=== PATIENT | male | born 1965 | race Caucasian/White ===

== ENCOUNTER 2021-08-18 18:31 | Inpatient (IN) ==
--- OUTSIDE RECORDS SUMMARY | 2021-08-18 20:42 | External Medical Summary | Continuity of Care Document ---
:1965 Author Organization [facility] Care Team Providers Name Role Phone [facility] Unavailable Unavailable Problems Combined list of problems from Department of Defense and Veterans Affairs facilities. It does not include entries that were removed or entered in error. Problem Status Onset Problem Date of Comments Source Date Type Resolution Chronic back pain Active Condition [facility] Depressive disorder Active Condition [facility] Diabetes Mellitus Active Condition MARGUERITE Rivera Type 2 ([facility] [id number]) [facility] Diabetic neuropathy [facility] Headache ([facility] [place] [id number] CLINIC History of Active Condition Jan 20, 2018 [facility] colonoscopy Entered By: NEFTALI CERVANTES Comment: 01/2018 -- Due at this time, going to do FIT testing. Aug 27, 2020 Entered By: NEFTALI PASTOR Comment: 2020 -- Crcs declined. Stone-Stahli line Active Condition [facility]git [facility] Multiple joint pain Active Condition Apr 28, 2021 LUKE Rivera Entered By: AVTAR SANDRA GASCA [facility] CARI Comment: 2020 neg rheumatologic labs Neck pain Active Condition Jan 20, 2018 [facility] Entered By: NEFTALI CERVANTES Comment: 01/2018 -- Getting MICHELLE's thru the Pain Clinic @ [facility] Obesity Active Condition [facility] Open wound of foot Active Condition Birgit Rivera [facility] Tobacco use Active Condition LUKE Rivera [facility] Well adult Active Condition Aug 25, 2020 [facility] Entered By: NEFTALI CERVANTES Comment: Hx: [place] x 16 yrs. Mos: [employer]. Aug 25, 2020 Entered By: NEFTALI PASTOR Comment: Marital Status: . Aug 25, 2020 Entered By: NEFTALI PASTOR Comment: Alcohol Use: Yes, rarely. Aug 25, 2020 Entered By: NEFTALI PASTOR Comment: Tobacco Use: Yes, smoker (1/2 ppd). Aug 25, 2020 Entered By: NEFTALI PASTOR Comment: Primary healthcare provider is YASEMIN Pastor @ the [facility]. Chronic pain Inactive Condition 04/28/2021 NISHANT Rivera [facility] Combined form of Inactive Condition 04/28/2021 MARGUERITE Rivera senile cataract [facility] Contusion of sacral Inactive Condition 10/11/2016 LUKE Rivera region [facility] Dental caries Inactive Condition 04/28/2021 [facility] External Inactive Condition 10/11/2016 LUKE Rivera hemorrhoids without [place] complication [facility] Hand pain Inactive Condition 04/28/2021 [facility] History of surgery Inactive Condition 04/28/2021 [facility] Spasmodic Inactive Condition 10/11/2016 LUKE Rivera torticollis [facility] Strain of trapezius Inactive Condition 10/11/2016 LUKE Rivera muscle [facility] Tendinitis Inactive Condition 09/08/2018 Aug 02, 2013 MARGUERITE Rivera Entered By: AVTAR MICHELLE LAURA [facility] E Comment: calcific right shoulder Diagnosis: active Diagnosis [facility] ICD-10-CM I10 MEDICA L Essential (primary) CENTER hypertensionwith Provider Comments: Essential (Primary) Hypertension Diagnosis: active Diagnosis [facility] ICD-10-CM Z04.9 CLIN IC Encounter for examination and observation for unsp reasonwith Provider Comments: Exam/Observation for Unspec Reason Diagnosis: active Diagnosis [facility] ICD-10-CM E11.9 CLIN IC Type 2 diabetes mellitus without complicationswith Provider Comments: Diabetes mellitus ([facility] [id number]) Diagnosis: active Diagnosis [facility] ICD-10-CM R68.89 CLI ROSEANN Other general symptoms and signswith Provider Comments: General Symptoms & Signs Diagnosis: active Diagnosis LUKE Rivera ICD-10-CM E11.9 [facility] Type 2 diabetes [facility] mellitus without complicationswith Provider Comments: Type 2 Diabetes Mellitus without Complications Diagnosis: active Diagnosis [facility] ICD-10-CM M79.643 CL INIC Pain in unspecified handwith Provider Comments: Hand pain ([facility] [id number]) Diagnosis: active Diagnosis [facility] ICD-10-CM Z71.2 CLIN IC Person consulting for explanation of exam or test findingswith Provider Comments: Explanation of Exam or Test Finding Diagnosis: active Diagnosis [facility] ICD-10-CM Z00.00 CLI ROSEANN Encntr for general adult medical exam w/o abnormal findingswith Provider Comments: Well adult ([facility] [id number]) Medications Combined list of outpatient medications from Department of Defense and Veterans Affairs facilities. Medications provided include 1) outpatient medications [facility], and 2) patient-reported medications. Medication Details Route Status Patient Prescription Prescription Last Ordering Order Source Instructions Expires Number Dispense Provider Date Date ACCU-CHEK USE THE MISCEL 11/25/2020 [id number] Ailyn WHEELER 08/28/ [place] GUIDE METER LANEOU 1 ARK L 2020 N [place] (GLUCOSE) DIRECTED S CLINIC METER NEEDED FOR BLOOD GLUCOSE TESTING ACETAMINOPH TAKE ONE ORAL ACTIVE Ailyn PASTOR 10/20/ [facility] EN 500MG TABLET ARK L 2017 N [facility] TAB BY MOUTH CLINIC PRN ALOGLIPTIN TAKE ONE ORAL ACTIVE 07/07/2022 [id number] ZIEGL ER,M 07/07/ [place] 12.5MG TAB TABLET 1 ARK L 2020 N [facility] BY MOUTH CLINIC EVERY DAY FOR DIABETES ALOGLIPTIN TAKE ONE ORAL DISCONT 12/18/2021 [id number] Z IEDALLAS,M 12/17/ [place] 12.5MG TAB TABLET INUE 1 ARK L 2020 N [facility] BY MOUTH CLINIC EVERY DAY FOR DIABETES ALOGLIPTIN TAKE ONE ORAL DISCONT 07/03/2021 [id number] Z IEGLER,M 07/03/ [place] 12.5MG TAB TABLET INUE 1 ARK L 2019 N [facility] BY MOUTH CLINIC EVERY DAY FOR DIABETES ASCORBIC TAKE TWO ORAL ACTIVE 04/17/2022 [id number] APOLINAR,S A 04/16/ JONATHA ACID 500MG TABLETS 1 MANT2020 N M. TAB BY MOUTH SENIOR RISK MANAGER-C WAIN[place] EVERY T DAY FOR [facility] VITAMIN C SUPPLEME NT NOTE DOSE AND STRENGTH CARBOXYMETH INSTILL AFFECT ACTIVE 02/24/2022 [id number] ADRIANA N,VINC 02/24/ JONATHA YLCELLULOSE 1 DROP ED EYE 1 ENT W 2020 N M. NA 0.5% IN [place] SOLN,OPH AFFECTED GHT EYE FOUR [facility] TIMES A DAY CHOLECALCIF TAKE ONE ORAL ACTIVE 12/18/2021 [id number] Ailyn ESCALONA 12/17/ [place] YANI 125MCG CAPSULE 1 ARK L 2020 N [facility] (5,000UNIT) BY MOUTH CLINI C CAP,ORAL DAILY CHOLECALCIF TAKE ONE ORAL DISCONT 11/09/2020 [id number] Ailyn LARA 11/08/ [place] YANI 125MCG CAPSULE INUE 1 ARK L 2020 N [facility] (5,000UNIT) BY MOUTH CLINI C CAP,ORAL DAILY DICLOFENAC APPLY TOPICA ACTIVE 08/28/2021 [id number] Ailyn PASTOR 08/28/ [place] NA 1% 2-4 L 1 ARK L 2020 N [facility] GEL,TOP GRAMS CLINIC DIRECTED TO AFFECTED AREA TWICE A DAY NEEDED FOR PAIN * LIMIT DAILY DOSE TO 8 GRAMS TO UPPER BODY AND 16 GRAMS TO LOWER BODY FISH OIL TAKE TWO ORAL ACTIVE 12/18/2021 [id number] Ailyn PASTOR 12/17/ [place] 1000MG CAPSULES 1 ARK L 2020 N [facility] (500MG BY MOUTH CLINIC DHA/EPA) EVERY CAP,ORAL DAY FOR HYPERLIP IDEMIA. FISH OIL TAKE TWO ORAL DISCONT 11/09/2020 [id number] Ailyn PASTOR 11/08/ [place] 1000MG CAPSULES INUE 1 ARK L 2019 N [facility] (500MG BY MOUTH CLINIC DHA/EPA) EVERY CAP,ORAL DAY FOR HYPERLIP IDEMIA. GENTAMICIN APPLY A TOPICA ACTIVE 04/17/2022 [id number] SA APOLINAR 04/16/ JONATHA SO4 0.1% SMALL L 1 [facility] 2020 N M. CREAM,TOP AMOUNT SENIOR RISK MANAGER-C WAINWRI TO GHT AFFECTED [facility] AREA ORDERED BY WOUND CARE TO TREAT OR PREVENT AN INFECTIO N DRESSI NG CHANGE EVERY OTHER DAY INSULIN,GLA INJECT SUBCUT ACTIVE 06/01/2022 [id number] Ailyn GONZALEZ 06/01/ [place] RGINE,HUMAN 23 UNITS ANEOUS 1 ARK L 2020 N [facility] 100 UNIT/ML UNDER CLINIC INJ,SOLOSTA SKIN AT R,3ML BEDTIME INSULIN,GLA INJECT SUBCUT DISCONT 04/17/2021 [id number] SAMIRA VELASQUEZM 04/17/ [place] RGINE,HUMAN 23 UNITS ANEOUS INUE 1 ARK L 2019 N [facility] 100 UNIT/ML UNDER CLINIC INJ,SOLOSTA SKIN AT R,3ML BEDTIME LISINOPRIL TAKE ONE ORAL ACTIVE 12/18/2021 [id number] ZIEGL ER,M 12/17/ [place] 10MG TAB TABLET 1 ARK L 2020 N [facility] BY MOUTH CLINIC DAILY TO LOWER BLOOD PRESSURE LISINOPRIL TAKE ONE ORAL DISCONT 11/23/2020 [id number] ZIEGL ER,M 12/02/ [place] 10MG TAB TABLET INUE 1 ARK L 2020 N [facility] BY MOUTH CLINIC DAILY TO LOWER BLOOD PRESSURE METFORMIN TAKE ONE ORAL 11/09/2020 [id number] NEMESIO R,M 11/08/ [place] HCL 1000MG TABLET 1 ARK L 2020 N [facility] TAB BY MOUTH CLINIC TWICE A DAY FOR DIABETES NAPROXEN TAKE ONE ORAL 07/03/2021 [id number] ZIEGLE R,M 07/03/ [place] 500MG TAB TABLET 1 ARK L 2020 N [facility] BY MOUTH CLINIC TWICE A DAY FOR PAIN OFLOXACIN INSTILL LEFT 07/30/2021 [id number] SCHREMP P, 06/30/ JONATHA 0.3% 1 DROP EYE 1 RIO D 2020 N M. SOLN,OPH IN LEFT [place] EYE FOUR GHT TIMES A [facility] DAY FOR 7 DAYS, TO PREVENT INFECTIO N. BEGIN USING DROPS INSTRUCT ED (2ND EYE). OFLOXACIN INSTILL RIGHT 07/30/2021 [id number] SCHREMP P, 06/30/ JONATHA 0.3% 1 DROP EYE 1 RIO D 2020 N M. SOLN,OPH IN RIGHT WAIN[place] EYE FOUR GHT TIMES A [facility] DAY FOR 7 DAYS TO PREVENT INFECTIO N. BEGIN USING DROPS INSTRUCT ED (1ST EYE). PREDNISOLON INSTILL RIGHT 07/30/2021 [id number] SC HREMPP, 06/30/ JONATHA E ACETATE 1 DROP EYE 1 RIO D 2020 N M. 1% SUSP,OPH IN RIGHT W[place] RI EYE FOUR GHT TIMES A [facility] DAY UNTIL GONE, TO REDUCE INFLAMMA TION. BEGIN DROPS INSTRUCT ED (1ST EYE). PREDNISOLON INSTILL LEFT 06/29/2021 [id number] SCHRE MPP, 06/26/ JONATHA E ACETATE 1 DROP EYE 1 RIO D 2020 N M. 1% SUSP,OPH IN LEFT WAINWR I EYE FOUR GHT TIMES A [facility] DAY UNTIL GONE, TO REDUCE INFLAMMA TION. BEGIN USING DROPS INSTRUCT ED (2ND EYE). PREGABALIN TAKE ONE ORAL DISCONT 04/10/2021 [id number] GERARDO SOURAV 03/11/ JONATHA 150MG CAPSULE INUE 1 ,2020 N M. CAP,ORAL BY MOUTH NEINWRI TWICE A T DAY [facility] PREGABALIN TAKE ONE ORAL DISCONT 06/11/2020 [id number] ZIEGL ER,M TO 150MG CAPSULE INUE 0 ARK L 2019 N AL CAP,ORAL (150MG) CLINIC BY MOUTH TWICE A DAY FOR DIABETIC NERVE PAIN PREGABALIN TAKE ONE ORAL 05/24/2021 [id number] A NDREADIS 04/24/ JONATHA 150MG CAPSULE 1 ,2020 N M. CAP,ORAL BY MOUTH WAINWRI TWICE A T DAY [facility] PREGABALIN TAKE ONE ORAL 01/05/2021 [id number] Becka IEDALLASM 07/06/ JONATHA 150MG CAPSULE 1 ARK L 2019 N M. CAP,ORAL (150MG) WAINWRI BY MOUTH GHT TWICE A [facility] DAY FOR DIABETIC NERVE PAIN SODIUM IRRIGATI TOPICA ACTIVE 04/17/2022 [id number] SA APOLINAR 04/16/ JONATHA HYPOCHLORIT ON USE 5 L 1 MANTHA 2020 N M. E 0.25% MLS TO SENIOR RISK MANAGER-C WAIN[place]RI SOLN,TOP AFFECTED GHT AREA [facility] DIRECTED FOR WOUND CARE VENLAFAXINE TAKE ONE ORAL ACTIVE 12/18/2021 [id number] Z Ailyn LARA 12/17/ [place] HCL 75MG CAPSULE 1 ARK L 2020 N [facility] 24HR CAP,SA BY MOUTH CLINI C TWICE A DAY FOR PAIN MANAGEME NT / DEPRESSI ON VENLAFAXINE TAKE ONE ORAL DISCONT 11/09/2020 [id number] Z JERZYTOÑOLUIS ENRIQUEM 11/08/ [place] HCL 75MG CAPSULE INUE 1 ARK L 2019 N [facility] 24HR CAP,SA BY MOUTH CLINI C TWICE A DAY FOR PAIN MANAGEME NT / DEPRESSI ON Immunizations Combined list of available immunizations from the Department of Defense and Veterans Affairs facilities. Immunization Series Date Administered Site Reaction Lot CVX Drug St atus Comments Source Given By Number Code Senior Planner [id number] Not [place] IMM REFUSAL - 2020 Given N AL UNS CVX 213 CL INIC [id number] Not [place] VACCINE 2020 Given N AL REFUSAL CLINIC PNEUMOCOCCAL complet [place] CONJUGATE PCV 2017 ed N [facility] 13 CLINIC Results Combined list of recent chemistry, hematology and other laboratory results from Department of Defense and Veterans Affairs, ranging from 15 months to all on record, depending upon the facility. Order Results Value Reference Date Interpretation Specimen Commen ts Source Name Range TESTOSTE TESTOSTERO 2.6 2.8 - 8 09/12 L Specimen [place] GRANT JUANITA WAYNE ng/ml /2020 Type: [facility] TOTAL [MASS/VOLU SERUM
ME] IN Comment: SERUM OR TESTOSTERON PLASMA E TOTAL INTERPRETAT ION: Testosteron e peaks at approximate ly 7am and is at its minimum at approximate ly 8pm. Reference ranges as of 01/10/02: Male 2.8-8.0 ng/mL Female 0.1-0.8 ng/mL
Ordering Provider: JANE PASTOR
Report Released Date/Time: Aug 27, 2020 01:58 PM
Reporting Lab: LU[facility] CASTELLANOS [facility] [phone]< br/> Performing Lab: LUKE Rivera [facility]<br/ > [address] [phone]< br/> ANTI-NUC NUCLEAR AB <1:80 - 180 09/12 Specimen ROO[place]ELT MONACO AB [TITER] IN Type: [facility] CL INIC (BILL) SERUM SERUM
< div>No comment entered.
</div> Ordering Provider: JANE PASTOR
Report Released Date/Time: Aug 27, 2020 01:58 PM
Reporting Lab: LUKE Rivera [facility]
[address] [facility] [phone]< br/> Performing Lab: LUKE Rivera [facility]
; [place] [id number]
IRON IRON 316 112 - 346 09/12 Specimen SANDRA TON PANEL BINDING ug/dL Type: [facility] CL[facility] CAPACITY.U BLOOD
< NSATURATED div>No [MASS/VOLU comment ME] IN entered.<br SERUM OR /></div> PLASMA Ordering Provider: JANE PASTOR
Report Released Date/Time: Aug 27, 2020 01:58 PM
Reporting Lab: LUKE Rivera [facility]
[address] [place] [phone]< br/> Performing Lab: LUKE Rivera [facility]
[address] [place] [phone]& lt;br/> IRON IRON 67 ug/dL 38 - 153 09/12 Specimen SANDRA TON PANEL [MASS/VOLU /2020 Type: [facility] CL INIC ME] IN BLOOD
< SERUM OR div>No PLASMA comment entered.
</div> Ordering Provider: JANE PASTOR
Report Released Date/Time: Aug 27, 2020 01:58 PM
Reporting Lab: LUKE Rivera [facility]
[address] [facility] [phone]< br/> Performing Lab: LUKE AilynDaily [facility]
[address] [facility] [phone]& lt;br/> IRON IRON 383 250 - 450 09/12 Specimen SANDRA TON PANEL BINDING ug/dL /2020 Type: [facility] CLIN[facility] CAPACITY BLOOD
< [MASS/VOLU div>No ME] IN comment SERUM OR entered.<br PLASMA /></div> Ordering Provider: JANE PASTOR
Report Released Date/Time: Aug 27, 2020 01:58 PM
Reporting Lab: [facility] AilynDaily [facility]
[address] [place] [phone]< br/> Performing Lab: LUKE Rivera [facility]
[address] [place] [phone]& lt;br/> IRON IRON 17.5 % 20 - 55 09/12 L Specimen [place] N PANEL SATURATION /2020 Type: [facility]IC [MASS BLOOD
< FRACTION] div>No IN SERUM comment OR PLASMA entered.
</div> Ordering Provider: JANE PASTOR
Report Released Date/Time: Aug 27, 2020 01:58 PM
Reporting Lab: [facility]
[address] [place] [phone]< br/> Performing Lab: [facility] AilynDaily [facility]
[address] [place] [phone]& lt;br/> PSA WITH PROSTATE 2.43 0 - 4.00 09/12 Specimen RENA YIP FREE PSA SPECIFIC ng/ml /2020 Type: [facility] CLI ROSEANN REFLEX AG SERUM
[MASS/VOLU Comment: ME] IN High doses SERUM OR of Biotin PLASMA supplements (>5 mg/day) may falsely increase Vitamin B-12, Vitamin D (25OH), Free T4, and Folate results. Test specimens should be collected at least 8 hrs after last ingestion of high dose biotin. High doses of Biotin supplements (>5 mg/day) may falsely decrease Total PSA, Free PSA, Pro-BNP, AFP, C-Peptide and Ferritin results. Test specimens should be collected at least 8 hours after the last ingestion of high dose biotin. Significant ly decreased CRP values may be obtained from samples taken from patients who have been treated with carboxypeni cillines. LDL Direct Adult Reference Range: Optimal <100 mg/dL Near optimal/abo ve optimal 100-129 mg/dL Borderline high 130-159 mg/dL High 160-189 mg/dL Very High 190 mg/dL Note that non-fasting results may be slightly lower than fasting results.
Ordering Provider: JANE PASTOR
Report Released Date/Time: Aug 27, 2020 01:58 PM
Reporting Lab: LUKE Rivera [facility]
[address] [place] [phone]< br/> Performing Lab: LUKE Rivera [facility]
[address] [place] [phone]< br/> RHEUMATO RHEUMATOID <14IU/mL 0 - 13 09/12 Specimen ED WILLIAMSON ID FACTOR Type: [facility] CLIN[facility] FACTOR [UNITS/VOL SERUM
< UME] IN div>No SERUM OR comment PLASMA entered.
</div> Ordering Provider: JANE PASTOR
Report Released Date/Time: Aug 27, 2020 01:58 PM
Reporting Lab: LUKE Rivera [facility]
[address] [place] [phone]< br/> Performing Lab: LUKE Rivera [facility]
[address] [place] [phone]& lt;br/> THYROID THYROTROPI 2.19 0.300 - 09/12 Specimen ROOSEVELTI STON STIMULAT N IU/mL 4.25 Type: [facility] CLIN IC ING [UNITS/VOL SERUM
HORMONE UME] IN Comment: SERUM OR High doses PLASMA of Biotin supplements (>5 mg/day) may falsely increase Vitamin B-12, Vitamin D (25OH), Free T4, and Folate results. Test specimens should be collected at least 8 hrs after last ingestion of high dose biotin. High doses of Biotin supplements (>5 mg/day) may falsely decrease Total PSA, Free PSA, Pro-BNP, AFP, C-Peptide and Ferritin results. Test specimens should be collected at least 8 hours after the last ingestion of high dose biotin. Significant ly decreased CRP values may be obtained from samples taken from patients who have been treated with carboxypeni cillines. LDL Direct Adult Reference Range: Optimal <100 mg/dL Near optimal/abo ve optimal 100-129 mg/dL Borderline high 130-159 mg/dL High 160-189 mg/dL Very High 190 mg/dL Note that non-fasting results may be slightly lower than fasting results.
Ordering Provider: JANE PASTOR
Report Released Date/Time: Aug 27, 2020 01:58 PM
Reporting Lab: LUKE Rivera [facility]
[address] [place] [phone]< br/> Performing Lab: LUKE Rivera [facility]
[address] [place] [phone]< br/> URINALYS COLOR OF Yellow 09/12 Specimen SANDRA TON IS URINE /2020 Type: [facility] CLIN[facility] (IRIS) URINE
< div>No comment entered.
</div> Ordering Provider: JANE PASTOR
Report Released Date/Time: Aug 27, 2020 01:58 PM
Reporting Lab: LUKE Rivera [facility]
[address] [place] [phone]< br/> Performing Lab: LUKE Rivera [facility]
[address] [place] [phone]& lt;br/> URINALYS SPECIFIC 1.022 1.003 - 09/12 Specimen SANDRA TON IS GRAVITY OF 1.030 /2020 Type: [facility] (IRIS) URINE BY URINE
< TEST STRIP div>No comment entered.
</div> Ordering Provider: JANE PASTOR
Report Released Date/Time: Aug 27, 2020 01:58 PM
Reporting Lab: [facility] AilynDaily [facility]
[address] [facility] [phone]< br/> Performing Lab: [facility] AilynDaily [facility]
[address] [place] [phone]& lt;br/> URINALYS BILIRUBIN. NEGATIVE 09/12 Specimen [place] IS TOTAL /2020 Type: [facility] (IRIS) [PRESENCE] URINE
< IN URINE div>No comment entered.
</div> Ordering Provider: JANE PASTOR
Report Released Date/Time: Aug 27, 2020 01:58 PM
Reporting Lab: [facility] AilynDaily [facility]
[address] [place] [phone]< br/> Performing Lab: [facility] AilynDaily [facility]
[address] [place] [phone]& lt;br/> URINALYS KETONES NEGATIVE 09/12 Specimen SANDRA TON IS [MASS/VOLU mg/dL /2020 Type: [facility] (IRIS) ME] IN URINE
< URINE BY div>No TEST STRIP comment entered.
</div> Ordering Provider: JANE PASTOR
Report Released Date/Time: Aug 27, 2020 01:58 PM
Reporting Lab: [facility] AilynDaily [facility]
[address] [facility] [phone]< br/> Performing Lab: [facility] AilynDaily [facility]
[address] [facility] [phone]& lt;br/> URINALYS GLUCOSE NEGATIVE 09/12 Specimen SANDRA TON IS [MASS/VOLU mg/dL /2020 Type: [facility] (IRIS) ME] IN URINE
< URINE div>No comment entered.
</div> Ordering Provider: JANE PASTOR
Report Released Date/Time: Aug 27, 2020 01:58 PM
Reporting Lab: LUKE Rivera [facility]
[address] [place] [phone]< br/> Performing Lab: LUKE Rivera [facility]
[address] [place] [phone]& lt;br/> URINALYS PROTEIN 10 mg/dL 09/12 Specimen SANDRA BROOKE IS [MASS/VOLU /2020 Type: [facility] (IRIS) ME] IN URINE
< URINE BY div>No TEST STRIP comment entered.
</div> Ordering Provider: JANE PASTOR
Report Released Date/Time: Aug 27, 2020 01:58 PM
Reporting Lab: [facility] Rivera [facility]
[address] [place] [phone]< br/> Performing Lab: LUKE Rivera [facility]
[address] [place] [phone]& lt;br/> URINALYS PH OF 5.5 5.0 - 8.0 09/12 Specimen RENA YIP IS URINE BY /2020 Type: [facility] CL[facility] (IRIS) TEST STRIP URINE
< div>No comment entered.
</div> Ordering Provider: JANE PASTOR
Report Released Date/Time: Aug 27, 2020 01:58 PM
Reporting Lab: [facility] Rivera [facility]
[address] [place] [phone]< br/> Performing Lab: LUKE Rivera [facility]
[address] [place] [phone]& lt;br/> URINALYS LEUKOCYTES 1 /HPF 0 - 5 09/12 Specimen ROOSEVELT BURNS IS [#/AREA] /2020 Type: [facility] CL[facility] (IRIS) IN URINE URINE
< SEDIMENT div>No BY comment MICROSCOPY entered.<br HIGH POWER /></div> FIELD Ordering Provider: JANE PASTOR
Report Released Date/Time: Aug 27, 2020 01:58 PM
Reporting Lab: LU[facility] Rivera [facility]
[address] [facility] [phone]< br/> Performing Lab: LU[facility] Rivera [facility]
[address] [place] [phone]& lt;br/> URINALYS MUCUS RARE 09/12 Specimen [place] IS [PRESENCE] /2020 Type: [facility] (IRIS) IN URINE URINE
< SEDIMENT div>No BY LIGHT comment MICROSCOPY entered.
</div> Ordering Provider: JANE PASTOR
Report Released Date/Time: Aug 27, 2020 01:58 PM
Reporting Lab: [facility] Rivera [facility]
[address] [place] [phone]< br/> Performing Lab: LU[facility] Rivera [facility]
[address] [place] [phone]& lt;br/> URINALYS ERYTHROCYT 1 /HPF 0 - 3 09/12 Specimen ROOSEVELT BURNS IS ES /2020 Type: [facility] (IRIS) [#/AREA] URINE
< IN URINE div>No SEDIMENT comment BY entered.<br MICROSCOPY /></div> HIGH POWER Ordering FIELD Provider: JANE PASTOR
Report Released Date/Time: Aug 27, 2020 01:58 PM
Reporting Lab: [facility] Rivera [facility]
[address] [place] [phone]< br/> Performing Lab: [facility] Rivera [facility]
[address] [place] [phone]& lt;br/> URINALYS APPEARANCE CLEAR 09/12 Specimen ROOSEVELT BURNS IS OF URINE /2020 Type: [facility] CL[facility] (IRIS) URINE
< div>No comment entered.
</div> Ordering Provider: JANE PASTOR
Report Released Date/Time: Aug 27, 2020 01:58 PM
Reporting Lab: [facility] Rivera [facility]
[address] [facility] [phone]< br/> Performing Lab: [facility] Rivera [facility]
[address] [facility] [phone]& lt;br/> URINALYS HEMOGLOBIN NEGATIVE 09/12 Specimen ED WILLIAMSON IS [PRESENCE] Type: [facility]INE URINE
< BY TEST div>No STRIP comment entered.
</div> Ordering Provider: JANE PASTOR
Report Released Date/Time: Aug 27, 2020 01:58 PM
Reporting Lab: [facility]
[address] [place] [phone]< br/> Performing Lab: [facility]
[address] [place] [phone]& lt;br/> URINALYS NITRITE NEGATIVE 09/12 Specimen SANDRA BROOKE IS [PRESENCE] Type: [facility] URINE
< BY TEST div>No STRIP comment entered.
</div> Ordering Provider: JANE PASTOR
Report Released Date/Time: Aug 27, 2020 01:58 PM
Reporting Lab: [facility]
[address] [facility] [id number]< br/> Performing Lab: [facility]
[address] [facility] [address]& lt;br/> URINALYS LEUKOCYTE NEGATIVE 09/12 Specimen ROOSEVELT BURNS IS ESTERASE /2021 Type: [facility] (IRIS) [PRESENCE] URINE
< IN URINE div>No BY TEST comment STRIP entered.
</div> Ordering Provider: JANE PASTOR
Report Released Date/Time: Aug 27, 2020 01:58 PM
Reporting Lab: [facility]
[address] [place] [phone]< br/> Performing Lab: [facility]
[address] [place] [phone]& lt;br/> URINALYS UROBILINOG NORMALmg <2 - 2 09/12 Specimen LE [place] IS EN /dL /2020 Type: [facility] (IRIS) [MASS/VOLU URINE
< ME] IN div>No URINE BY comment TEST STRIP entered.
</div> Ordering Provider: JANE PASTOR
Report Released Date/Time: Aug 27, 2020 01:58 PM
Reporting Lab: [facility]
[address] [place] [phone]< br/> Performing Lab: [facility]
[address] [place] [phone]& lt;br/> URIC URATE 5.2 3.5 - 8.5 09/12 Specimen SANDRA TON ACID [MASS/VOLU mg/dL /2020 Type: [facility] INIC ME] IN SERUM
SERUM OR Comment: PLASMA High doses of Biotin supplements (>5 mg/day) may falsely increase Vitamin B-12, Vitamin D (25OH), Free T4, and Folate results. Test specimens should be collected at least 8 hrs after last ingestion of high dose biotin. High doses of Biotin supplements (>5 mg/day) may falsely decrease Total PSA, Free PSA, Pro-BNP, AFP, C-Peptide and Ferritin results. Test specimens should be collected at least 8 hours after the last ingestion of high dose biotin. Significant ly decreased CRP values may be obtained from samples taken from patients who have been treated with carboxypeni cillines. LDL Direct Adult Reference Range: Optimal <100 mg/dL Near optimal/abo ve optimal 100-129 mg/dL Borderline high 130-159 mg/dL High 160-189 mg/dL Very High 190 mg/dL Note that non-fasting results may be slightly lower than fasting results.
Ordering Provider: JANE PASTOR
Report Released Date/Time: Aug 27, 2020 01:58 PM
Reporting Lab: [facility]
[address] [facility] [phone]< br/> Performing Lab: [facility]
[address] [place] [phone]< br/> VITAMIN 25-HYDROXY 65.8 30.0 - 100 09/12 Specimen L EWISTON D VITAMIN D3 ng/mL /2020 Type: [facility] (25-HYDR [MASS/VOLU SERUM
OXY) ME] IN Comment: SERUM OR High doses PLASMA of Biotin supplements (>5 mg/day) may falsely increase Vitamin B-12, Vitamin D (25OH), Free T4, and Folate results. Test specimens should be collected at least 8 hrs after last ingestion of high dose biotin. High doses of Biotin supplements (>5 mg/day) may falsely decrease Total PSA, Free PSA, Pro-BNP, AFP, C-Peptide and Ferritin results. Test specimens should be collected at least 8 hours after the last ingestion of high dose biotin. Significant ly decreased CRP values may be obtained from samples taken from patients who have been treated with carboxypeni cillines. LDL Direct Adult Reference Range: Optimal <100 mg/dL Near optimal/abo ve optimal 100-129 mg/dL Borderline high 130-159 mg/dL High 160-189 mg/dL Very High 190 mg/dL Note that non-fasting results may be slightly lower than fasting results.
Ordering Provider: JANE PASTOR
Report Released Date/Time: Aug 27, 2020 01:58 PM
Reporting Lab: [facility]
[address] [facility] [phone]< br/> Performing Lab: [facility]
[address] [facility] [phone]< br/> C-REACTI C REACTIVE 1.6 mg/L 0 - 4.99 09/12 Specimen L EW[place] VE PROTEIN /2020 Type: [facility] CLINI C PROTEIN [MASS/VOLU SERUM
ME] IN Comment: SERUM OR High doses PLASMA of Biotin supplements (>5 mg/day) may falsely increase Vitamin B-12, Vitamin D (25OH), Free T4, and Folate results. Test specimens should be collected at least 8 hrs after last ingestion of high dose biotin. High doses of Biotin supplements (>5 mg/day) may falsely decrease Total PSA, Free PSA, Pro-BNP, AFP, C-Peptide and Ferritin results. Test specimens should be collected at least 8 hours after the last ingestion of high dose biotin. Significant ly decreased CRP values may be obtained from samples taken from patients who have been treated with carboxypeni cillines. LDL Direct Adult Reference Range: Optimal <100 mg/dL Near optimal/abo ve optimal 100-129 mg/dL Borderline high 130-159 mg/dL High 160-189 mg/dL Very High 190 mg/dL Note that non-fasting results may be slightly lower than fasting results. CRP was incorrectly reported in mg/dL Results have been converted to mg/L [facility] 06/30/21 C-REACTIVE PROTEIN reported incorrectly as 0.16 by [[id number]]. Changed to 0.00 on Jun 30, 2021@12:29 by [[id number]]. CRP incorrectly reported in mg/dL Results were converted to mg/L Disregard amendments made on 06/30/21 ([facility] 07/01/21) C-REACTIVE PROTEIN reported incorrectly as 0.00 by [[id number]]. Changed to 1.6 on Jul 01, 2021@12:47 by [[id number]].
Ordering Provider: JANE PASTOR
Report Released Date/Time: Aug 27, 2020 01:58 PM
Reporting Lab: [facility]
[address] [facility] [facility] [phone]< br/> Performing Lab: [facility]
[address] [facility] [place] [address]< br/> Vital Signs Combined list of inpatient and outpatient Vital Signs from Department of Defense and [facility], ranging from 12 months to all on record, depending upon the facility. Vital Sign Value Date Comments Source SYSTOLIC BLOOD PRESSURE 158mm[Hg] 04/10/2021 [facility] 11:36:48 DIASTOLIC BLOOD PRESSURE 93mm[Hg] 04/10/2021 [facility] 11:36:48 PULSE OXIMETRY 99% 04/10/2021 [facility] 11:36:48 WEIGHT 196[lb_av] 04/10/2021 [facility] 11:36:48 BMI 30kg/m2 04/10/2021 [facility] 11:36:48 PAIN 3 04/10/2021 [facility] 11:36:48 TEMPERATURE 96.7[degF] 04/10/2021 [facility] 11:36:48 PULSE 87/min 04/10/2021 [facility] 11:36:48 RESPIRATION 16/min 04/10/2021 [facility] 11:36:48 SYSTOLIC BLOOD PRESSURE 129mm[Hg] 08/27/2020 [facility] 11:44:23 DIASTOLIC BLOOD PRESSURE 89mm[Hg] 08/27/2020 [facility] 11:44:23 Encounters Combined list of: 1) Encounters from 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 Location Location Encounter Encounter Reason Attending ADM DC Stat us Disposition Source Details Type Number For Provider Date Date Visit Outpatient 04/10 VICTOR M CURTIS Encounter [id number] Hilaria [facility] Outpatient 04/23 VICTOR M EVER Encounter [id number] Hilaria [facility] Outpatient 07/02 VICTOR M EVER Encounter [id number] N Miguel [facility] Outpatient [id number] 08/27 VICTOR M EVER Encounter [id number] N Miguel [facility] OFFICE O/P 71884-6 Diagnos DANII PASTOR 08/27 [place] EST MOD [id number] is: RK L /2020 N [facility] 30-39 MIN 7 ICD-10- CLINIC CM Z00.00 Encntr for general adult medical exam w/o abnorma l finding s
w ith Provide r Comment s: Well adult (SCT [id number] 03) Outpatient 30211-4.10/29 VICTOR M EVER Encounter [id number] N Miguel [facility] Outpatient 73305-610/29 VICTOR M EVER Encounter [id number] N Miguel [facility] Outpatient 79928-010/30 VICTOR M EVER Encounter [id number] N Miguel [facility] Outpatient 43344-010/31 VICTOR M EVER Encounter [id number] N Miguel [facility] Outpatient 42532-5 Diagnos DANII PASTOR 11/03 [place] Encounter [id number] is: RK L /2020 N [facility] 6 ICD-10- CLINIC CM Z71.2 Person consult ing for explana tion of exam or test finding s
w ith Provide r Comment s: Explana tion of Exam or Test Finding Outpatient 59779-111/06 VICTOR M EVER Encounter [id number] /2021 N Miguel [facility] Outpatient [id number] DANII PASTOR 11/20 [place] Encounter [id number] RK L /2020 N [facility] 4 CLINIC Outpatient 66490-411/20 VICTOR M EVER Encounter [id number] N Miguel [facility] Outpatient [id number] Diagnos DANII PASTOR 11/27 [place] Encounter [id number] is: RK L /2020 N [facility] 7 ICD-10- CLINIC CM M79.643 Pain in unspeci fied hand
with Provide r Comment s: Hand pain (SCT 2442406 4) Outpatient 40175-9.02/10 VICTOR M EVER Encounter [id number] /2021 N Miguel [facility] Outpatient 29525-5.02/11 VICTOR M EVER Encounter [id number] N Miguel [facility] Outpatient 37355-7.02/23 VICTOR M EVER Encounter [id number] N Miguel [facility] EYE 10582-0. Diagnos YAAKOV MIRZA 02/23 MARGUERITE EFREN PHOTOGRAPH [id number] is: NT W N MDaily Y [facility] Type 2 diabete s mellitu s without complic ations< br/>wit h Provide r Comment s: Type 2 Diabete s Mellitu s without Complic ations Outpatient 76002-7.03/11 VICTOR M EVER Encounter [id number] N Miguel [facility] Outpatient 76705-3.04/06 VICTOR M EVER Encounter [id number] N Miguel [facility] Outpatient 12344-0.04/06 VICTOR M EVER Encounter [id number] /2021 N Miguel [facility] HC PRO 65202-8. [facility]os [facility] 04/08 L [place] PHONE CALL [id number] is: BIANCA N VA 11-20 MIN 84 ICD-10- CLINIC CM R68.89 Other general symptom s and signs<b r/>with Provide r Comment s: General Symptom s & Signs OFFICE O/P 25985-8. Diagnos [facility] 04/10 [place] EST [id number] is: BIANCA N [place] MINIMAL 53 ICD-10- CLINIC PROB CM Z04.9 Encount er for examina tion and observa tion for unsp reason< br/>wit h Provide r Comment s: Exam/Ob servati on for Unspec Reason OFFICE O/P 56269-9 Diagnos ANDREADIS, 04/10 [place] EST LOW [id number] is: MARY A N VA 20-29 MIN 87 ICD-10- CLINIC CM E11.9 Type 2 diabete s mellitu s without complic ations< br/>wit h Provide r Comment s: Diabete s mellitu s (SCT [id number] 9) OFFICE O/P Diagnos [facility] 04/13 [place] EST [id number] is: BIANCA A N [place] MINIMAL 24 ICD-10- CLINIC PROB CM Z04.9 Encount er for examina tion and observa tion for unsp reason< br/>wit h Provide r Comment s: Exam/Ob servati on for Unspec Reason Outpatient 04/15 VICTOR M EVER Encounter [id number] N Miguel [facility] OFFICE O/P Diagnos [place],[facility] 04/15 [place] EST [id number] is: BIANCA A N [place] MINIMAL 13 ICD-10- CLINIC PROB CM Z04.9 Encount er for examina tion and observa tion for unsp reason< br/>wit h Provide r Comment s: Exam/Ob servati on for Unspec Reason Outpatient 10813-504/16 VICTOR M EVER Encounter [id number] Hilaria [facility] Outpatient 37170-904/21 VICTOR M EVER Encounter [id number] N Miguel [facility] Outpatient 64812-305/05 VICTOR M EVER Encounter [id number] Hilaria [facility] Outpatient 12341-905/05 VICTOR M EVER Encounter [id number] /2021 Hilaria [facility] Outpatient 60608-906/03 VICTOR M EVER Encounter [id number] Hilaria [facility] Outpatient 72122-706/11 VICTOR M EVER Encounter [id number] N Miguel [facility] Outpatient 85458-007/06 LEWI STO Encounter [id number] N [place] CL[facility] Outpatient 42103-2.68 07/13 VICTOR M EVER Encounter [id number] /2021 N [facility] Outpatient 00500-8.68 07/14 VICTOR M EVER Encounter [id number] /2021 N Miguel [facility] 08400-2.07/15 VICTOR M EVER Encounter [id number] N [facility] 53813-8.53 Diagnos BRIDGES,RO 07/15 BOISE EST [id number] is: AL MINIMAL ICD-10- MEDICAL PROB CM I10 CENTER Essenti al (primar y) hyperte nsion<b r/>with Provide r Comment s: Essenti al (Primar y) Hyperte nsion Outpatient 85487-207/29 VICTOR M EVER Encounter [id number] /2021 N Miguel [facility] OFFICE O/P 10798-4.53 Diagnos BRIDGES,RO 07/29 BOISE EST [id number] is: AL MINIMAL ICD-10- MEDICAL PROB CM I10 CENTER Essenti al (primar y) hyperte nsion<b r/>with Provide r Comment s: Essenti al (Primar y) Hyperte nsion Outpatient 63294-608/03 VICTOR M EVER Encounter [id number] N Miguel [facility] Social History Combined list of available smoking, tobacco, and other social history from Department of Defense andVeter[facility] Affairs facilities. Social History Response Date Comment Source Type Tobacco smoking VA-TO[facility]CO [facility] NHIS EVERY DAY History of VA-TOBACCO DOESNT 08/27/[address] [address] [facility] tobacco use USE WI 30 MIN WAKEUP History of VA-TOBACCO USE [place] 09/08/2018 [facility] tobacco use 30 MIN OF WAKEUP History of TOBACCO SCREEN 10/20/2017 No, not willing [facility] tobacco use COMPLETED to quit now History of TOBACCO SCREEN 10/11/2016 No, not willing [facility] tobacco use COMPLETED to quit now History of TOBACCO SCREEN 02/20/2015 No, not willing [facility] tobacco use COMPLETED to quit now History of TOBACCO SCREEN 01/25/2014 No, not willing [facility] tobacco use COMPLETED to quit now History of DELAY TOBACCO 05/02/2013 [facility] History of DELAY TOBACCO 10/10/2012 [facility] History of TOBACCO USER* 09/13/2012 [facility] Plan of Care List of future care activities from Department of Veterans Affairs facilities. Additional future care activities may be listed in the Assessment and Plan section. Date/Time Care Activity Care Activity Detail Facility 08/26/2021 AMBULATORY - MEDICINE AMBULATORY - MEDICINE [facility]
--- OUTSIDE RECORDS SUMMARY | 2021-08-18 20:42 | External Medical Summary | Encounter Summary ---
:1965 Author Organization Department of [facility] rs Address [address] [place] [address] Care Team Providers Name Role Phone SANDRA GASCA Primary Care Provider Unavailable Selected Encounter This section includes the information on record at [place] for the Encounter. Date/Time Encounter Type Encounter Description Reason Provider Source Oct 30, 2020 08:45 Outpatient Encounter [facility] AM CONSULT [facility] Encounter Template Text not used by [place] Plan of Treatment: Future Appointments (+ 6 months) and Future Tests (+/- 45 days) The Plan of Treatment section includes future care activities for the patient from all [place] treatmentfacilities. This section includes future appointments and future orders which are active, pending orscheduled.Future Appointments This section includes appointments that were scheduled to occur 6 months from the date of the Encounter, up to a maximum of 20 appointments. The data comes from all [place] treatment facilities. Appointment Date/Time Appointment Type Appointment Facili ty Name Nov 03, 2020 11:30 AM [facility]ORY [facility] MED[facility]INE [facility] Nov 20, 2020 03:00 PM [facility]UL[facility] - [facility]INE [facility] Nov 27, 2020 12:30 PM [facility]INE [facility] Feb 10, 2021 08:00 AM AMBULATORY - MEDICINE [facility] Feb 23, 2021 10:30 AM AMBULATORY - MEDICINE [facility] Apr 08, 2021 02:00 PM AM[facility] - [facility]INE [facility] Apr 10, 2021 10:00 AM [facility]INE [facility] Apr 10, 2021 10:30 AM AMBULATORY - MEDICINE [facility] Apr 13, 2021 08:15 AM [facility]INE [facility] Apr 15, 2021 03:30 PM [facility]INE [facility] Apr 21, 2021 08:00 AM AMBULATORY - MEDICINE [facility] Active, Pending, and Scheduled Orders This section includes a listing of several types of active, pending, and scheduled orders, including clinic medications orders, diagnostic test orders, procedure orders and consult orders; where the start date of the order is 45 days before the date of the Encounter or 45 days after the date of the Encounter. The data comes from all [facility]. Test Date/Time Test Type Test Details Facility Name December 14, 2020 10:09 AM Consult Order [facility] Cons School Attendance Secretary's Choice Radiology Reports: +/- 30 days of the encounter Radiology Reports For cases when an order for radiology services may have been completed prior to the date of the Encounter, the report list includes the Radiology Reports that were completed up to 30 days before date of the Encounter. For cases when an order for radiology services may have been completed after the date of the Encounter, the report list also includes the Radiology Reports that were completed up to 30days after date of the Encounter. The data comes from all [facility]. Date/Time Radiology Report Provider Source Oct 29, 2020 01:28 PM HIPS BILAT 5V: LUKE Ailyn Daily BEALLISETTE ZAYDA [id number] -[birth year] 2 M [facility] Exm Date: OCT 29, 2020@13:28 Req Phys: SHARMIN SUH Loc: OUTSIDE [facility] RAD -X (Req'g Loc) Img Loc: BUILDING 86 Service: Unknown (Case 86 COMPLETE) HIPS BILAT 5V (RAD Detailed) CPT:15286 Reason for Study: OUTSIDE STUDY IMPORTED ARB Clinical History: OUTSIDE STUDY IMPORTED ARB Report Status: Electronically Filed Date Report ed: Report: Impression: OUTSIDE STUDY IMPORTED Primary Diagnostic Code: VERIFIED BY: / *ELECTRONICALLY FILED* Oct 29, 2020 01:24 PM SPINE LUMBOSACRAL MIN 2 VIEWS: LISETTE WHATLEY ZAYDA [id number] -[birth year]OV 16 2 M [facility] Exm Date: OCT 29, 2020@13:24 Req Phys: SHARMIN SUH Loc: OUTSIDE WW RAD -X (Req'g Loc) Img Loc: BUILDING 86 Service: Unknown (Case 87 COMPLETE) SPINE LUMBOSACRAL MIN 2 VIEWS (RAD Detailed) CPT:54651 Reason for Study: OUTSIDE STUDY IMPORTED ARB Clinical History: OUTSIDE STUDY IMPORTED ARB Report Status: Electronically Filed Date Report ed: Report: Impression: OUTSIDE STUDY IMPORTED Primary Diagnostic Code: VERIFIED BY: / *ELECTRONICALLY FILED* Oct 29, 2020 01:18 PM HAND LEFT: LISETTE ESTEBAN ZAYDA [id number] -NOV 16 4 M [facility] Exm Date: OCT 29, 2020@13:18 Req Phys: SHARMIN SUH Loc: OUTSIDE WW RAD -X (Req'g Loc) Img Loc: [place] [address] Service: Unknown (Case 88 COMPLETE) HAND LEFT (RAD Detailed) CPT: 91608 CPT Modifiers : LT LEFT SIDE Reason for Study: OUTSIDE STUDY IMPORTED ARB Clinical History: OUTSIDE STUDY IMPORTED ARB Report Status: Electronically Filed Date Report ed: Report: Impression: OUTSIDE STUDY IMPORTED Primary Diagnostic Code: VERIFIED BY: / *ELECTRONICALLY FILED* Oct 29, 2020 01:17 PM HAND RIGHT: LISETTE ESTEBAN ZAYDA [id number] -NOV 16 4 M [facility] Exm Date: OCT 29, 2020@13:17 Req Phys: SHARMIN SUH Loc: OUTSIDE WW RAD -X (Req'g Loc) Img Loc: BUILDING 86 Service: Unknown (Case 89 COMPLETE) HAND RIGHT (RAD Detailed) CPT :12542 CPT Modifiers : RT RIGHT SIDE Reason for Study: OUTSIDE STUDY IMPORTED ARB Clinical History: OUTSIDE STUDY IMPORTED ARB Report Status: Electronically Filed Date Report ed: Report: Impression: OUTSIDE STUDY IMPORTED Primary Diagnostic Code: VERIFIED BY: / *ELECTRONICALLY FILED* Oct 29, 2020 01:07 PM SPINE CERVICAL MIN 4 VIEWS: LISETTE WHATLEY ZAYDA [id number] -NOV 16 4 M [facility] Exm Date: OCT 29, 2020@13:07 Req Phys: SHARMIN SUH Loc: OUTSIDE WW RAD -X (Req'g Loc) Img Loc: [place] [address] Service: Unknown (Case 120 COMPLETE) SPINE CERVICAL MIN 4 VIEWS ( RAD Detailed) CPT:12680 Reason for Study: OUTSIDE STUDY IMPORTED ARB Clinical History: OUTSIDE STUDY IMPORTED ARB Report Status: Electronically Filed Date Report ed: Report: Impression: OUTSIDE STUDY IMPORTED Primary Diagnostic Code: VERIFIED BY: / *ELECTRONICALLY FILED* Oct 29, 2020 12:[address] HEAD WITHOUT CONTRAST: LISETTE WHATLEY ZAYDA [id number] -NOV 16 4 M [facility] Exm Date: OCT 29, 2020@12:45 Req Phys: NEFTALI PASTOR Loc: OUTSIDE WW CT- X (Req'g Loc) Img Loc: OUTSIDE [facility] CT Service: Unknown (Case 146 COMPLETE) CT HEAD WITHOUT CONTRAST (CT Detailed) CPT:58393 Reason for Study: Outside Study Imported ART Clinical History: Outside Study Imported ART Report Status: Electronically Filed Date Report ed: Report: Impression: OUTSIDE STUDY IMPORTED VERIFIED BY: / *ELECTRONICALLY FILED* Encounter Notes: All associated encounter notes This section contains the clinical notes associated to the Encounter. Date/Time Encounter Note(s) Provider Source Oct 30, 2020 08:45 AM ADMINISTRATIVE NOTE: SACHI MAYBERRY LOCAL TITLE: ADMINISTRATIVE NOTE CRITICAL ACCESS HOSPITAL STANDARD TITLE: ADMINISTRATIVE NOTE DATE OF NOTE: OCT 30, 2020@08:45 ENTRY DATE: OCT 30, 2020@08:45:38 AUTHOR: SACHI MAYBERRY EXP COSIGNER: URGENCY: STATUS: COMPLETED SPOKE TO DECLINED COVID VACCINE /es/ SACHI MAYBERRY [facility] Signed: 10/30/2020 08:47
--- OUTSIDE RECORDS SUMMARY | 2021-08-18 20:43 | External Medical Summary | Encounter Summary ---
:1965 Author Organization Department of [facility] rs Address [address] [place] [id number] Care Team Providers Name Role Phone SANDRA GASCA Primary Care Provider Unavailable Selected Encounter This section includes the information on record at [place] for the Encounter. Date/Time Encounter Type Encounter Reason Provider Source Description Apr 15, 2021 OFFICE O/P EST PRIMARY ICD-10-CM Z04.9 MEAGAN ARCOS 03:30 PM MINIMAL PROB CARE/MEDICINE Encounter for A examination and observation for unsp reason with Provider Comments: Exam/Observation for Unspec Reason IHE Encounter Template Text not used by [place] Assessments - Encounter Diagnoses This section includes the primary and secondary diagnoses documented for the Encounter. Date/Time Primary/Secondary Diagnosis Name Provider Source Diagnosis Apr 15, 2021 PRIMARY Encounter for MEAGAN ARCOS [place] 03:48 PM examination and A CLINIC observation for unsp reason Plan of Treatment: Future Appointments (+ 6 months) and Future Tests (+/- 45 days) The Plan of Treatment section includes future care activities for the patient from all [place] treatmentfacilities. This section includes future appointments and future orders which are active, pending orscheduled.Future Appointments This section includes appointments that were scheduled to occur 6 months from the date of the Encounter, up to a maximum of 20 appointments. The data comes from all [place] treatment facilities. Appointment Date/Time Appointment Type Appointment Facili ty Name Apr 21, 2021 08:00 AM AMBULATORY - MEDICINE [facility] May 04, 2021 09:40 AM AMBULATORY - NONE [facility] Jun 24, 2021 01:00 PM AMBULATORY - NONE [facility] Aug 26, 2021 09:30 AM AMBULATORY - MEDICINE [facility] Sep 02, 2021 02:00 PM AMBULATORY - MEDICINE [facility] Sep 02, 2021 03:00 PM AMBULATORY - NONE [facility] Active, Pending, and Scheduled Orders This section includes a listing of several types of active, pending, and scheduled orders, including clinic medications orders, diagnostic test orders, procedure orders and consult orders; where the start date of the order is 45 days before the date of the Encounter or 45 days after the date of the Encounter. The data comes from all [place] treatment facilities. Test Date/Time Test Type Test Details Facility Name May 05, 2021 10:49 AM Consult Order [facility] Financial Compliance Examiner's Choice [facility] Social History: Smoking Status (Most current) and Tobacco Use (All prior to encounter date) This section includes the most current, and the historical, smoking and tobacco-related health factors from the [place] facility where the Encounter took place.Current Smoking Status This section includes the most current smoking, or tobacco-related health factor, from the [place] facility where the Encounter took place. Date/Time Current Smoking Status Comment Facility Aug 27, 2020 11:30 AM VA-TOBACCO USER EVERY DAY [facility] Tobacco Use History This section includes a history of the smoking, or tobacco- related health factors, that were collected on or before the date of the Encounter. The data comes from the [place] facility where the Encounter took place. Date/Time Smoking Status/Tobacco Use Comment [facility] Aug 27, 2020 11:30 AM VA-TOBACCO USE 30 YEARS OR [facility] MORE Aug 27, 2020 11:30 AM VA-TOBACCO USE ADVICE [facility] Aug 27, 2020 11:30 AM VA-TOBACCO USE [facility] Aug 27, 2020 11:30 AM VA-TOBACCO USE MED NO [facility] Aug 27, 2020 11:30 AM VA-TOBACCO USER EVERY DAY [facility] Sep 08, 2018 10:18 AM VA-TOBACCO USE 30 YEARS OR [facility] MORE Sep 08, 2018 10:18 AM VA-TOBACCO USE ADVICE [facility] Sep 08, 2018 10:18 AM VA-TOBACCO USE [facility] Sep 08, 2018 10:18 AM VA-TOBACCO USE MED NO [facility] Sep 08, 2018 10:18 AM VA-TOBACCO USE WI 30 MIN [facility] Sep 08, 2018 10:18 AM VA-TOBACCO USER EVERY DAY [facility] Oct 20, 2017 09:18 AM CURRENT TOBACCO USER SANDRA [facility] Oct 20, 2017 09:18 AM TOBACCO SCREEN COMPLETED [facility] No, not willing to quit now Oct 11, 2016 09:57 AM CURRENT TOBACCO USER SANDRA [facility] Oct 11, 2016 09:57 AM TOBACCO MEDICATION [facility]O N [facility] INTERVENTION Oct 11, 2016 09:57 AM TOBACCO SCREEN COMPLETED [facility] No, not willing to quit now Feb 20, 2015 10:04 AM CURRENT TOBACCO USER [facility] Feb 20, 2015 10:04 AM TOBACCO SCREEN COMPLETED [facility] No, not willing to quit now Jan 25, 2014 08:44 AM CURRENT TOBACCO USER [facility] Jan 25, 2014 08:44 AM TOBACCO SCREEN COMPLETED [facility] No, not willing to quit now Encounter Notes: All associated encounter notes This section contains the clinical notes associated to the Encounter. Date/Time Encounter Note(s) Provider Source Apr 15, 2021 03:44 PM CARE MANAGEMENT NOTE: [facility] LOCAL TITLE: CARE MANAGEMENT NOTE STANDARD TITLE: CARE MANAGEMENT NOTE DATE OF NOTE: APR 15, 2021@15:44 ENTRY DATE: APR 15, 2021@15:44:09 AUTHOR: MEAGAN ARCOS EXP COSIGNER: URGENCY: STATUS: COMPLETED S: Coolidge is here today for a wound recheck B: brought ambulatory back to ex am room. He is identified by full name and . A: is on his last day of augmentin. He s tates that he took his mother shopping today, so he was up and walking around a bunch today. There is no redness or swelling of surrounding tissue. There is a lot of serous drainage and the edges of the wound are macerated. Unable to wipe off bioburden, it is stuck, and site is too painful to debride. Aquac el AG to wound base, mepilex foam, 2x2 and coban applied. Jorge Alberto has not heard from [facility] wound care yet, I let him know that they have the authorization, and he should call them today to schedule appt. R: Coolidge understands that if he does not have a wound care appt scheduled for this week, that I want to see him on Tuesday at 1 530 pm. /janet/ MEAGAN ARCOS RN Signed: 04/15/2021 15:48
--- OUTSIDE RECORDS SUMMARY | 2021-08-18 20:43 | External Medical Summary | Encounter Summary ---
:1965 Author Organization Department of [facility] rs Address [address] [place] [id number] Care Team Providers Name Role Phone SANDRA GASCA Primary Care Provider Unavailable Selected Encounter This section includes the information on record at [place] for the Encounter. Date/Time Encounter Type Encounter Reason Provider Source Description Apr 08, 2021 HC PRO PHONE TELEPHONE PRIMARY ICD-10-CM ISRRAELMEAGAN 02:00 PM CALL 11-20 MIN CARE R68.89 Other A general symptoms and signs with Provider Comments: General Symptoms & Signs IHE Encounter Template Text not used by [place] Assessments - Encounter Diagnoses This section includes the primary and secondary diagnoses documented for the Encounter. Date/Time Primary/Secondary Diagnosis Name Provider Source Diagnosis Apr 08, 2021 PRIMARY Other general MEAGAN ARCOS [facility] 02:00 PM symptoms and signs A CLINIC Apr 08, 2021 SECONDARY Persons MEAGAN ARCOS [facility] 02:00 PM encountering health A CLINIC services in oth circumstances Plan of Treatment: Future Appointments (+ 6 months) and Future Tests (+/- 45 days) The Plan of Treatment section includes future care activities for the patient from all [place] treatmentfacilities. This section includes future appointments and future orders which are active, pending orscheduled.Future Appointments This section includes appointments that were scheduled to occur 6 months from the date of the Encounter, up to a maximum of 20 appointments. The data comes from all [place] treatment facilities. Appointment Date/Time Appointment Type Appointment Facili ty Name Apr 10, 2021 10:00 AM AMBULATORY - MEDICINE [facility] Apr 10, 2021 10:30 AM AMBULATORY - MEDICINE [facility] AilynDaily [place] [facility] Apr 13, 2021 08:15 AM AMBULATORY - MEDICINE [facility] Apr 15, 2021 03:30 PM AMBULATORY - MEDICINE [facility] Apr 21, 2021 08:00 AM AMBULATORY - MEDICINE [facility] MDaily [place] [facility] May 04, 2021 09:40 AM AMBULATORY - NONE [facility] S[facility] Jun 24, 2021 01:00 PM AMBULATORY - NONE [facility] S[facility] Aug 26, 2021 09:30 AM AMBULATORY - MEDICINE [facility] IC Sep 02, 2021 02:00 PM AMBULATORY - MEDICINE [facility] Sep 02, 2021 03:00 PM AMBULATORY - NONE [facility] Active, Pending, and Scheduled [...] the Encounter. The data comes from all [place] treatment facilities. Test Date/Time Test Type Test Details Facility Name May 05, 2021 10:49 AM Consult Order COMMUNITY CARE-PODIATRY [facility]ITE SANCHZ[facility] Yard Switch Operator's Choice [facility] Surgical Procedures: All associated to the encounter This section includes all Surgical Procedures and Surgical Procedure Notes associated to the Encounter.Surgical Procedures This section includes all Surgical Procedures associated to the Encounter.Surgical Procedure Date/Time Procedure Procedure Type Procedure Provider Source Qualifiers Apr 08, 2021 PHONE CALL BY HC PRO MEAGAN CORBIN [place] 02:00 PM HC PROF 11-20 CALL 11-20 MIN A CLINIC MIN Surgical Notes There are no notes associat ed with this procedure. Social History: Smoking Status (Most current) and Tobacco Use (All prior to encounter date) This section includes the most current, and the historical, smoking and tobacco-related health factors from the [place] facility where the Encounter took place.Current Smoking Status This section includes the most current smoking, or tobacco-related health factor, from the [place] facility where the Encounter took place. Date/Time Current Smoking Status [facility] Facility Aug 27, 2020 11:30 AM VA-TOBACCO USER EVERY DAY [facility] Tobacco Use History This section includes a history of the smoking, or tobacco- related health factors, that were collected on or before the date of the Encounter. The data comes from the [place] facility where the Encounter took place. Date/Time Smoking Status/Tobacco Use Comment [facility] Aug 27, 2020 11:30 AM VA-TOBACCO USE [address] 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 Aug 27, 2020 11:30 AM VA-TOBACCO USE MED NO [facility] Aug 27, 2020 11:30 AM VA-TOBACCO USER EVERY DAY [facility] Sep 08, 2018 10:18 AM VA-TOBACCO USE [address] 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 Sep 08, 2018 10:18 AM VA-TOBACCO USE MED NO [facility] Sep 08, 2018 10:18 AM VA-TOBACCO USE WI 30 MIN [facility] Sep 08, 2018 10:18 AM VA-TOBACCO USER EVERY DAY [facility] Oct 20, 2017 09:18 AM CURRENT TOBACCO USER [facility] Oct 20, 2017 09:18 AM TOBACCO SCREEN COMPLETED [facility] No, not willing to quit now Oct 11, 2016 09:57 AM CURRENT TOBACCO USER [facility] Oct 11, 2016 09:57 [facility] Oct 11, 2016 09:57 AM TOBACCO SCREEN COMPLETED [facility] No, not willing to quit now Feb 20, 2015 10:04 AM CURRENT TOBACCO USER [facility] Feb 20, 2015 10:04 AM TOBACCO SCREEN COMPLETED [facility] No, not willing to quit now Jan 25, 2014 08:44 AM CURRENT TOBACCO USER [facility] Jan 25, 2014 08:44 AM TOBACCO SCREEN COMPLETED [facility] No, not willing to quit now Encounter Notes: All associated encounter notes This section contains the clinical notes associated to the Encounter. Date/Time Encounter Note(s) Provider Source Apr 08, 2021 02:21 TEAM TELEPHONE ENCOUNTER NOTE: MEAGAN ARCOS [facility] PM LOCAL TITLE: CARE MANAGEMENT TELEPHONE NOTE STANDARD TITLE: TEAM TELEPHONE ENCOUNTER NOTE DATE OF NOTE: APR 08, 2021@14:21 ENTRY DATE: APR 08, 2021@14:21:08 AUTHOR: MEAGAN ARCOS COSIGNER: URGENCY: STATUS: COMPLETED Date of Discharge: Mar Discharged to: Home Diagnosis: left foot great toe cellulitis Discharged from: [facility] ER Since your discharge have yo u had any questions or concerns? needs it rechecked Were you provided a copy of your updated medicat ion list upon discharge? Was your medication list easy to understand? yes , added augmentin for 10 days Do you have any questions about your medications ? MEDICATION RECONCILIATION Active and Recently Outpatient Medicatio ns (excluding Supplies): Active Outpatient Medications Status 1) ACCU-CHEK GUIDE (GLUCOSE) TEST STRIP USE 1 ST RIP ACTIVE THREE TIMES A DAY FOR BLOOD GLUCOSE TESTING 2) ACCU-CHEK GUIDE(GLUCOSE)HI/LO CNTRL SOLN USE ONE DROP ACTIVE DIRECTED NEEDED TO CALIBRATE THE ACCU-MITZY K GUIDE METER 3) ALOGLIPTIN 12.5MG TAB TAKE ONE TABLET BY MOUT H EVERY ACTIVE DAY FOR DIABETES 4) CARBOXYMETHYLCELLULOSE 0.5% OPH 15ML LUIS INST ILL 1 ACTIVE DROP IN AFFECTED EYE FOUR TIMES A DAY 5) CHOLECALCIF 125MCG (D3-5,000UNIT) CAP TAKE ON E ACTIVE CAPSULE BY MOUTH DAILY 6) DICLOFENAC NA 1% TOP GEL APPLY 2-4 GRAMS D IRECTED ACTIVE TO AFFECTED AREA TWICE A DAY NEEDED FOR PAIN * LIMIT DAILY DOSE TO 8 GRAMS TO UPPER BODY AND 1 6 GRAMS TO LOWER BODY 7) FISH OIL 1000MG (500MG DHA/EPA) CAP TAKE TWO CAPSULES ACTIVE BY MOUTH EVERY DAY FOR HYPERLIPIDEMIA. 8) INSULIN,GLARGINE 100 UNIT/ML 3ML SOLOSTR INJE CT 23 ACTIVE UNITS UNDER SKIN AT BEDTIME 9) LISINOPRIL 10MG TABLET TAKE ONE TABLET BY PEPPER TH DAILY ACTIVE TO LOWER BLOOD PRESSURE 10) NAPROXEN 500MG TAB TAKE ONE TABLET BY MOUTH TWICE A ACTIVE DAY FOR PAIN 11) PREGABALIN 150MG ORAL CAP TAKE ONE CAPSULE B Y MOUTH ACTIVE TWICE A DAY 12) VENLAFAXINE HCL 75MG 24HR SA CAP TAKE ONE CA PSULE BY ACTIVE MOUTH TWICE A DAY FOR PAIN MANAGEMENT / DEPRESS ION Active Non-VA Medications Status 1) Non-VA ACETAMINOPHEN 500MG TAB 500MG BY MOUTH ACTIVE NEEDED 13 Total Medications COMMENTS: Does patient have a follow up appointment? yes, Tuesday at 10am in RN CM clinic Is patient aware of all follow up appointments? yes Future Clinic Visits Is a Visiting Nurse needed? no If yes have you been contacted by them? Is Case Management needed? no Reviewed discharge instruction: COMMENTS: Pending Issues: /es/ MEAGAN ARCOS RN Signed: 04/08/2021 14:23
--- OUTSIDE RECORDS SUMMARY | 2021-08-18 20:43 | External Medical Summary | Encounter Summary ---
:1965 Author Organization Department of [facility] rs Address [address] [place] [address] Care Team Providers Name Role Phone SANDRA GASCA Primary Care Provider Unavailable Selected Encounter This section includes the information on record at [place] for the Encounter. Date/Time Encounter Type Encounter Reason Provider Source Description Apr 13, 2021 OFFICE O/P EST PRIMARY ICD-10-CM Z04.9 MEAGAN ARCOS 08:15 AM MINIMAL PROB CARE/MEDICINE Encounter for A examination and observation for unsp reason with Provider Comments: Exam/Observation for Unspec Reason IHE Encounter Template Text not used by [place] Assessments - Encounter Diagnoses This section includes the primary and secondary diagnoses documented for the Encounter. Date/Time Primary/Secondary Diagnosis Name Provider Source Diagnosis Apr 13, 2021 PRIMARY Encounter for MEAGAN ARCOS [place] 08:56 AM examination and A CLINIC observation for unsp [...] Appointment Type Appointment Facili ty Name Apr 15, 2021 03:30 PM AMBULATORY - MEDICINE [facility] IC Apr 21, 2021 08:00 AM AMBULATORY - MEDICINE [facility] May 04, 2021 09:40 AM AMBULATORY - NONE [facility] Jun 24, 2021 01:00 PM AMBULATORY - NONE [facility] Aug 26, 2021 09:30 AM AMBULATORY - MEDICINE [facility] CL[facility] IC Sep 02, 2021 02:00 PM AMBULATORY - MEDICINE [facility] Sep 02, 2021 03:00 PM AMBULATORY - NONE [place] [facility] Active, Pending, and Scheduled [...] 10:49 AM Consult Order COMMUNITY CARE-PODIATRY MARGUERITE SANCHEZIGHT Cons Automation Analyst's Choice [facility] Social History: Smoking Status (Most current) and [...] 2020 11:30 AM VA-TOBACCO USER EVERY DAY [facility] Tobacco Use History This section includes a history of the smoking, or tobacco- related health factors, that were collected on or before the date of the Encounter. The data comes from the [place] facility where the Encounter took place. 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 [facility] Aug 27, 2020 11:30 AM VA-TOBACCO USE MED NO [facility] Aug 27, 2020 11:30 AM VA-TOBACCO USER EVERY DAY [facility] Sep 08, 2018 10:18 AM VA-TOBACCO USE 30 YEARS OR [facility] MORE Sep 08, 2018 10:18 AM VA-TOBACCO USE ADVICE [facility] Sep 08, 2018 10:18 AM 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 INTERVENTION Oct 11, 2016 09:57 AM TOBACCO SCREEN COMPLETED [facility] No, not willing to quit now Feb 20, 2015 10:04 AM CURRENT TOBACCO USER [facility] Feb 20, 2015 10:04 AM TOBACCO SCREEN COMPLETED [facility] No, not willing to quit now Jan 25, 2014 08:44 AM CURRENT TOBACCO USER [facility] Jan 25, 2014 08:44 AM TOBACCO SCREEN COMPLETED [facility] No, not willing to quit now Encounter Notes: All associated encounter notes This section contains the clinical notes associated to the Encounter. Date/Time Encounter Note(s) Provider Source Apr 14, 2021 11:10 AM ADMINISTRATIVE NOTE: [facility] LOCAL TITLE: AFTER VISIT SUMMARY STANDARD TITLE: ADMINISTRATIVE NOTE DATE OF NOTE: APR 14, 2021@11:10:07 ENTRY DATE: APR 14, 2021@11:10:07 AUTHOR: SACHI MAYBERRY COSIGNER: URGENCY: STATUS: COMPLETED The patient was provided with a copy of an after -visit summary at the conclusion of the visit. The after-visit summary includes information per taining to the patient's encounter, including diagnoses, vital signs, med ications, and new orders, as well as a list of any any upcoming appointmen ts and information regarding the patient's ongoing care. The patient's medications were reviewed with the patient by the provider and were provided to the patient as an updated l ist of medications. The patient was instructed to inform the provider of any medication changes or discrepancies that were noted. Otherwise, the patient was instructed to continue the medications as prescribed. A copy of the after-visit summary provided to aguila e patient is available in [employer]. SCANNED DOCUMENT SIGNATURE NOT REQUIRED Electronically Filed: 04/14/2021 by: SACHI MAYBERRY MSA Apr 13, 2021 08:49 AM CARE MANAGEMENT NOTE: [facility] LOCAL TITLE: CARE MANAGEMENT NOTE STANDARD TITLE: CARE MANAGEMENT NOTE DATE OF NOTE: APR 13, 2021@08:49 ENTRY DATE: APR 13, 2021@08:49:33 AUTHOR: MEAGAN ARCOS EXP COSIGNER: URGENCY: STATUS: COMPLETED S: [facility] is here today for a wound recheck B: See notes from 04/10/21. [facility] brought ambul atory back to exam room. He is identified by full name and . A: Alliance states that ulcer is looking much bet ter. Alliance has not heard back from [facility] about [facility] wound care. Alliance too k off dressing from home. He has stopped soaking wound, and he is changing dr barrett bid due to exudate amount. He is using iodine swab sticks, putting aquacel AG over wound bed. 4x4 and coban. Site is much improved. There is no re dness or inflammation of surrounding tissue. There is no maceration. The wound bed is moist, but no granulation tissued noted. Bioburden cleansed of f with saline and gauze. Redressed with mepilex foam (out of aquacel AG i n clinic), 2x2 and coban. R: Alliance understands that if he does not have a wound care appt scheduled for this week, that I want to see him on Tuesday a t 1530 pm /janet/ MEAGAN ARCOS RN Signed: 04/13/2021 08:56
--- OUTSIDE RECORDS SUMMARY | 2021-08-18 20:43 | External Medical Summary | Encounter Summary ---
:1965 Author Organization Department of [facility] rs Address [address] [place] [id number] Care Team Providers Name Role Phone SANDRA GASCA Primary Care Provider Unavailable Selected Encounter This section includes the information on record at [place] for the Encounter. Date/Time Encounter Type Encounter Reason Provider Source Description Apr 10, 2021 OFFICE O/P EST PRIMARY ICD-10-CM Z04.9 MEAGAN ARCOS 10:00 AM MINIMAL PROB CARE/MEDICINE Encounter for A examination and observation for unsp reason with Provider Comments: Exam/Observation for Unspec Reason IHE Encounter Template Text not used by [place] Assessments - Encounter Diagnoses This section includes the primary and secondary diagnoses documented for the Encounter. Date/Time Primary/Secondary Diagnosis Name Provider Source Diagnosis Apr 10, 2021 PRIMARY Encounter for ISRRAELMEAGAN [facility] 11:58 AM examination and A CLINIC observation for unsp reason Apr 10, 2021 SECONDARY Counseling, MEAGAN ARCOS [facility] 11:58 AM unspecified A CLINIC Plan of Treatment: Future Appointments (+ 6 months) and Future Tests (+/- 45 days) The Plan of Treatment section includes future care activities for the patient from all [place] treatmentfacilities. This section includes future appointments and future orders which are active, pending orscheduled.Future Appointments This section includes appointments that were scheduled to occur 6 months from the date of the Encounter, up to a maximum of 20 appointments. The data comes from all [place] treatment facilities. Appointment Date/Time Appointment Type Appointment Facili ty Name Apr 13, 2021 08:15 AM AMBULATORY - MEDICINE [facility] Apr 15, 2021 03:30 PM AMBULATORY - MEDICINE [facility] Apr 21, 2021 08:00 AM AMBULATORY - MEDICINE [facility] AilynDaily [facility] May 04, 2021 09:40 AM AMBULATORY - NONE [facility] SANCHEZ [facility] Jun 24, 2021 01:00 PM AMBULATORY - NONE [facility] SANCHEZ [facility] Aug 26, 2021 09:30 AM AMBULATORY - MEDICINE [facility] Sep 02, 2021 02:00 PM AMBULATORY - MEDICINE [place] MDaily MORTENSENCALLIE [facility] Sep 02, 2021 03:00 PM AMBULATORY - NONE [facility] [place] [facility] Active, Pending, and Scheduled [...] the Encounter. The data comes from all [place] treatment facilities. Test Date/Time Test Type Test Details Facility Name May 05, 2021 10:49 AM Consult Order COMMUNITY CARE-PODIATRY MARGUERITE SANCHEZIGHT Cons Pathology Laboratory Director's Choice [facility] Surgical Procedures: All associated to the encounter This section includes all Surgical Procedures and Surgical Procedure Notes associated to the Encounter.Surgical Procedures This section includes all Surgical Procedures associated to the Encounter.Surgical Procedure Date/Time Procedure Procedure Type Procedure Provider Source Qualifiers Apr 10, 2021 PT PT EDUCATION MEAGAN ARCOS [place] 10:00 AM EDUCATION,[facility] ,PER ENCOUNTER Surgical Notes There are no notes associat ed with this procedure. Vital Signs: All taken on the encounter date This section contains inpatient and outpatient Vital Signs collected on the date of the Encounter. Date/Time Temperature Pulse Blood Respiratory SP02 Pain Height Weight Raudel dy Source Pressure Rate Mass Index Apr 10, 96.7 F 87 158/93 16 /min 99 % 3 196 lb 30 [id number] 11:36 /min mm[Hg] [facility] Immunizations: All administered on the encounter date This section contains immunizations associated to the Encounter. Immunization Series Date Issued Reaction Comments [id number] IMM REFUSAL - UNS CVX 213 R Apr 10, 2021 [id number] VACCINE REFUSAL R Apr 10, 2021 Social History: Smoking Status (Most current) and Tobacco Use (All prior to encounter date) This section includes the most current, and the historical, smoking and tobacco-related health factors from the [place] facility where the Encounter took place.Current Smoking Status This section includes the most current smoking, or tobacco-related health factor, from the [place] facility where the Encounter took place. Date/Time Current Smoking Status Comment Facility Aug 27, 2020 11:30 AM VA-TOBACCO USER EVERY DAY [facility] Tobacco Use History This section includes a history of the smoking, or tobacco- related health factors, that were collected on or before the date of the Encounter. The data comes from the [place] facility where the Encounter took place. Date/Time Smoking Status/Tobacco Use Comment [facility] Aug 27, 2020 11:30 AM VA-TOBACCO USE 30 YEARS OR [facility] MORE Aug 27, 2020 11:30 AM VA-TOBACCO USE ADVICE [facility] Aug 27, 2020 11:30 AM VA-TOBACCO USE 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 [facility] Aug 27, 2020 11:30 AM VA-TOBACCO USE MED NO [facility] Aug 27, 2020 11:30 AM VA-TOBACCO USER EVERY DAY [facility] Sep 08, 2018 10:18 AM VA-TOBACCO USE 30 YEARS OR [facility] MORE Sep 08, 2018 10:18 AM VA-TOBACCO USE ADVICE [facility] Sep 08, 2018 10:18 AM VA-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 USE 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 [facility] Sep 08, 2018 10:18 AM VA-TOBACCO USE MED NO [facility] Sep 08, 2018 10:18 AM VA-TOBACCO USE WI 30 MIN [facility] Sep 08, 2018 10:18 AM VA-TOBACCO USER EVERY DAY [facility] Oct 20, 2017 09:18 AM CURRENT TOBACCO USER [facility] Oct 20, 2017 09:18 AM TOBACCO SCREEN COMPLETED [facility] No, not willing to quit now Oct 11, 2016 09:57 AM CURRENT TOBACCO USER [facility] Oct 11, 2016 09:57 AM TOBACCO MEDICATION [facility] [place] [facility] Oct 11, 2016 09:57 AM TOBACCO SCREEN COMPLETED [facility] No, not willing to quit now Feb 20, 2015 10:04 AM CURRENT TOBACCO USER [facility] Feb 20, 2015 10:04 AM TOBACCO [facility]CREEN [facility] No, not willing to quit now Jan 25, 2014 08:44 AM CURRENT TOBACCO USER [facility]DRA [facility]KE [facility] Jan 25, 2014 08:44 AM TOBACCO SCREEN COMPLETED Heather [facility] No, not willing to quit now Encounter Notes: All associated encounter notes This section contains the clinical notes associated to the Encounter. Date/Time Encounter Note(s) Provider Source Apr 10, 2021 11:37 AM CARE MANAGEMENT NOTE: MEAGAN ARCOS [facility] LOCAL TITLE: CARE MANAGEMENT NOTE STANDARD TITLE: CARE MANAGEMENT NOTE DATE OF NOTE: APR 10, 2021@11:37 ENTRY DATE: APR 10, 2021@11:37:46 AUTHOR: MEAGAN ARCOS EXP COSIGNER: URGENCY: STATUS: COMPLETED S: [place] is here today for ER follow-up and wo und check B: See CCP and CM tele note from yesterd ay. [place] brought ambulatory back to exam room. He is identified by full name and . A: CURRENT VITAL: Temperature: 96.7 F [35.9 C] (04/10/2021 11:36) Respirations: 16 (04/10/2021 11:36) Pulse: 87 (04/10/2021 11:36) Blood Pressure: 158/93 (04/10/2021 11:36) Weight: 196 lb [89.1 kg] (04/10/2021 11:36) Height: 68 in [172.7 cm] (02/20/2015 10:07) BMI: BMI: 30 SAO2: 99% DATE: Mar@11:37:19 Pain: 3 (04/10/2021 11:36) Clinical Reminders Done Today COVID-19 Immunization: Refuses all COVID-19 vaccines (current and futu re) Homelessness/Food Insecurity Screen: In the past 2 months, have you been living in s table housing that you own, rent, or stay in as part of a household? Y es - Living in stable housing. Are you worried or concerned that in the next 2 months you may NOT have stable housing that you own, rent, or stay in a s part of a household? No - Not worried about housing near future The [place] reports the following: Within the past 12 months, you worried whether your food would run out before you got money to buy more. Never true Within the past 12 months, the food you bought just didn't last and you didn't have money to get more. Never true Pneumococcal PPSV23 (Pneumovax): The patient declines to receive the recommended dose of pneumococcal polysaccharide vaccine PPSV23 (Pneumovax). Relationship Health & Safety Screen: RELATIONSHIP HEALTH & SAFETY SCREEN ENVIRONMENTAL SAFETY CHECK: Environment is safe to proceed INFORMED CONSENT TO SCREEN & DOCUMENT: Individual consents to documentation? Yes Individual consents to proceed with screening? Yes PRIMARY SCREEN: In the past 12 months, how often did a current or former intimate partner (e.g., boyfriend, girlfriend, , , se xual partner): Scream or curse at you: Never Insult or talk down to you: Never Threaten you with harm: Never Physically hurt you: Never In the past 12 months, how often did a current or former intimate partner force or pressure you to have sexual co ntact against your will, or when you were unable to say no? Never PRIMARY SCREEN RESULTS: The individual denied all forms of IPV above (i .e., answered "never" to all 5 items above). The HITS tool is [place] copyright protected by Ramsey Benedict MD, and the user has full rights to use it throughout the [employer] system. DISPOSITION: Provided general IPV education. Travel and Symptom Screen: The patient indicated that they and their close contacts have not traveled outside of the [place] in the past 21 day s. The patient reports the following symptoms: No symptoms present The patient is not immunocompromised. The patient does not report having a history of Multi Drug Resistant Organism (MDRO) within the last five years. The patient does not report having been exposed to measles, chickenpox, or zoster in last 30 days. Diabetic Pedal Pulse Exam: Patient received diab-pedal pulse exam at this encounter. Result of Exam: Normal EDUCATION [place] was educated on proper foot care and da hemant examination of feet. Educational materials were made available to Gaby burton regarding appropriate foot care hygiene. Level of Understanding: ... Verbalizes Understanding Diabetic Sensory Foot Exam: Patient had diab-sensory foot exam completed by monofilament at this encounter. Result of Exam: Abnormal Comment: no sensation with monofilatment testin g EDUCATION [place] was educated on proper foot care and da hemant examination of feet. Educational materials were made available to Gaby burton regarding appropriate foot care hygiene. Level of Understanding: ... Verbalizes Understanding Diabetic Visual Foot Exam: Patient had diab-visual foot exam at this [facility]. Result of Exam: Abnormal Comment: open ulcerated area left great toe, no hair growth, mycotic toenails EDUCATION Jorge Alberto was educated on proper foot care and da hemant examination of feet. Educational materials were made available to Gaby burton regarding appropriate foot care hygiene. Level of Understanding: ... Verbalizes Understanding Jorge Alberto states that last Tuesday he maci pped a stove on his left great toe. It bruised. He states then on 04/06/21 he was lookin g more closely at the toe. He had a callus on the pad of t he toe and when he went to peel it off there was an embeded piece of wire. He st ates this toe was red, swollen and draining purulent drainage, so he went to [facility] ER. He was started on augmentin. Jorge Alberto states that the redness is decreased. Dressing removed. There is an open area on pad or left great toe that is 2cm by 3cm. Th ere is serous drainage from the wound, and the area surrounding is macerated, and the maceration goes between the great toe and 2nd toe. Redness and swelling extend about 1 inch beyond the toe up the foot. Wound probed with q tip, and the q tip was embedded approximately [address] Souza in to examine. Jorge Alberto w ill need advanced wound care. Consult entered as urgent and CC nurse contacted . Area cleansed with wound tube cleaner and then iodine swabs X3. Open a isabelle covered with aquacel AG strip. 2x2 and then conform dresssing. 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 Jorge Alberto has 5 days of augmentin left. Jorge Alberto has not been checking his blood sugars. His last A1C in 09/[address] Souza provided verbal instructio ns that if he developed fever, chills, n/v, dizziness that he needed to be evaluated in the ER pina. R: Jorge Alberto left ambulatory and in no distress /es/ MEAGAN ARCOS RN Signed: 04/10/2021 11:58 Receipt Acknowledged By: * AWAITING SIGNATURE * MARY SOUZA
--- OUTSIDE RECORDS SUMMARY | 2021-08-18 20:43 | External Medical Summary | Encounter Summary ---
:1965 Author Organization Department of [facility] rs Address [address] [place] [address] Care Team Providers Name Role Phone SANDRA GASCA Primary Care Provider Unavailable Selected Encounter This section includes the information on record at [place] for the Encounter. Date/Time Encounter Type Encounter Reason Provider Source Description Apr 10, 2021 OFFICE O/P EST PRIMARY ICD-10-CM E11.9 DERRICK SOUZA 10:30 AM LOW 20-29 MIN CARE/MEDICINE Type 2 diabetes REN A mellitus without complications with Provider Comments: Diabetes mellitus ([facility] [id number]) E Encounter Template Text not used by [place] Assessments - Encounter Diagnoses This section includes the primary and secondary diagnoses documented for the Encounter. Date/Time Primary/Secondary Diagnosis Name Provider Source Diagnosis Apr 10, 2021 PRIMARY Type 2 diabetes MAURY SOUZA V [facility] 01:19 PM mellitus without NA A CLINIC complications Apr 10, 2021 SECONDARY Essential (primary) [place]URY [place]OUZA [place] 01:19 PM hypertension NA A CLINIC Apr 10, 2021 SECONDARY Unspecified open [place]URY SOUZA [place] 01:19 PM wound, left foot, NA A CLINIC subsequent encounter Plan of Treatment: Future Appointments (+ 6 months) and Future Tests (+/- 45 days) The Plan of Treatment section includes future care activities for the patient from all [facility] treatment[facility]ilities. This section includes future appointments and future orders which are active, pending orscheduled.Future Appointments This section includes appointments that were scheduled to occur 6 months from the date of the Encounter, up to a maximum of 20 appointments. The data comes from all [facility]. Appointment Date/Time Appointment Type Appointment Facili ty Name Apr 13, 2021 08:15 AM AMBULATORY - MEDICINE [facility] Apr 15, 2021 03:30 PM AMBULATORY - MEDICINE [facility] Apr 21, 2021 08:00 AM AMBULATORY - MEDICINE LU[facility] PORTILLO [facility] May 04, 2021 09:40 AM AMBULATORY - NONE [facility] SANCHEZ [facility] Jun 24, 2021 01:00 PM AMBULATORY - NONE [facility] SANC[facility] Aug 26, 2021 09:30 AM AMBULATORY - MEDICINE [facility] Sep 02, 2021 02:00 PM AMBULATORY - MEDICINE [facility] PORTILLO [facility] Sep 02, 2021 03:00 PM AMBULATORY - NONE [facility] Active, Pending, and [...] the Encounter. The data comes from all [facility]. Test Date/Time Test Type Test Details Facility Name May 05, 2021 10:49 AM Consult Order [facility] Vital Signs: All taken on the encounter date This section contains inpatient and outpatient Vital Signs collected on the date of the Encounter. Date/Time Temperature Pulse Blood Respiratory SP02 Pain Height Weight Raudel dy Source Pressure Rate Mass Index Apr 10 96.7 F 87 158/93 16 /min 99 % 3 196 lb 30 2020 11:36 /min mm[Hg] N [facility] Social History: Smoking Status (Most current) and Tobacco Use (All prior to encounter date) This section includes the most current, and the historical, smoking and tobacco-related health factors from the [place] facility where the Encounter took place.Current Smoking Status This section includes the most current smoking, or tobacco-related health factor, from the [place] facility where the Encounter took place. Date/Time Current Smoking Status [facility] Aug 27, 2020 11:30 AM VA-TOBACCO USER EVERY DAY [facility] Tobacco Use History This section includes a history of the smoking, or tobacco- related health factors, that were collected on or before the date of the Encounter. The data comes from the [place] facility where the Encounter took place. 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 NO [facility] Sep 08, 2018 10:18 AM VA-TOBACCO USE MED NO [facility] Sep 08, 2018 10:18 AM VA-TOBACCO USE WI 30 MIN [facility] Sep 08, 2018 10:18 AM VA-TOBACCO USER EVERY DAY [facility] Oct 20, 2017 09:18 AM CURRENT TOBACCO USER [facility] Oct 20, 2017 09:18 AM TOBACCO SCREEN COMPLETED [facility] No, not willing to quit now Oct 11, 2016 09:57 AM CURRENT TOBACCO USER [facility] Oct 11, 2016 09:57 AM TOBACCO MEDICATION [facility] INTERVENTION Oct 11, 2016 09:57 AM TOBACCO SCREEN COMPLETED [facility] No, not willing to quit now Feb 20, 2015 10:04 AM CURRENT TOBACCO USER [facility] Feb 20, 2015 10:04 AM TOBACCO SCREEN COMPLETED [facility] No, not willing to quit now Jan 25, 2014 08:44 AM CURRENT TOBACCO USER [facility] Jan 25, 2014 08:44 AM TOBACCO SCREEN COMPLETED [facility] No, not willing to quit now Encounter Notes: All associated encounter notes This section contains the clinical notes associated to the Encounter. Date/Time Encounter Note(s) Provider Source Apr 10, 2021 12:53 PHYSICIAN NOTE: MARY SOUZA [facility] LOCAL TITLE: PHYSICIAN NOTE A CLI ROSEANN STANDARD TITLE: PHYSICIAN NOTE DATE OF NOTE: APR 10, 2021@12:53 ENTRY DATE: APR 10, 2021@12:53:51 AUTHOR: MARY SOUZA COSIGNER: URGENCY: STATUS: COMPLETED LISETTE BEAL is a 55 year old MALE. Patient identification is confirmed by full name , date of and social security number prior to interview and examinati on. Hand washing is completed prior to interview and examination. Allergies: Patient has answered NKA CC: Walk-in HPI: 55 year old male with history of uncontr olled DM2, peripheral neuropathy, HTN, HLP, Obesity, Chronic back pain and headaches. [place] presents today with left foot wound. [place] seen recently at the ED and received ant ibiotics for left great toe wound, states dropped a larg e heavy object on the toe about a week ago. [place] notes the toe turned red and looked "bad". Veter an notes there was a calus on the bottom of the great toe and he "peeled it of f" and found wire inside the lesions. denies any prior surgery or int ervension on the foot in the past. [place] here today for follow up from the ED vis it. States toe is looking a little better today. denies fever, chills, chest pain , shorntess of breath, abdominal pain, nausea or vomiting. Reviewed with A1C 10 + at last check, discussed importance of close blood sugar monitoring and control to improve healing. [place] states understanding. [place] with no other concerns at this time. PMH: Hand pain M79.643 08/27/2020 NEFTALI PASTOR Headache ([facility] [id number]) R51.9 08/27/2020 NEFTALI PASTOR History of surgery R69. 11/08/2019 NEFTALI PASTOR Essential hypertension I10. 09/08/2018 Ailyn PASTOR Dental caries K02.9 09/08/2018 NEFTALI PASTOR History of colonoscopy R69. 08/27/2020 Ailyn PASTOR Well adult Z00.00 08/25/2020 NEFTALI PASTOR Neck pain M54.9 01/20/2018 NEFTALI PASTOR Chronic back pain M54.5 01/19/2017 NEFTALI PASTORi line H18.892 01/02/2016 Radha ROMO ACHEL Combined form of senile cataract H2 01/02/2016 MEENA OSMAN Obesity E66.9 01/21/2018 NEFTALI PASTOR Chronic pain G89.4 11/30/2017 NEFTALI PASTOR Tobacco use Z72.0 10/11/2016 NEFTALI PASTOR Depressive disorder F32.9 01/09/2016 JANE PASTOR Diabetes mellitus E11.9 08/27/2020 LEONARDO LEI Active Outpatient Medications (including Supplie s): Active Outpatient Medications Status 1) ACCU-CHEK GUIDE [...] BY MOUTH ACTIVE NEEDED 13 Total Medications Notes: Medication reconciliation was completed at this visit. ROS: Constitutional: No fever, chills, sweats or jeevan ght loss. HEENT: No changes in vision or hearing. 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 CVS: No chest pain, no orthopnea or leg edema Resp: No SOB, no chronic cough or phlegm, no he moptysis GI: No chronic diarrhea or constipation, colono scopy: see reminder : No frequency, urgency, hesitancy, dysuria, hematuria or incontinence. MUSK: per hpi Neuro: per hpi Psychiatric: No changes in mood, depression or anxiety. Denies SI/HI. OBJECTIVE: CURRENT VITAL: Temperature: 96.7 F [35.9 C] (04/10/2021 11:36) Respirations: 16 (04/10/2021 11:36) Pulse: 87 (04/10/2021 11:36) Blood Pressure: 158/93 (04/10/2021 11:36) Weight: 196 lb [89.1 kg] (04/10/2021 11:36) Height: 68 in [172.7 cm] (02/20/2015 10:07) BMI: BMI: 30 SAO2: 99% DATE: Mar@11:37:19 Pain: 3 (04/10/2021 11:36) GA - alert, oriented x3, well developed, in no d istress, mentally clear and cooperative Skin - per extremities below, otherwise warm and dry HEENT - normal cephalic Eyes - no pallor or icterus, pupils equal and ro und, normal light reflex Nose/Mouth - mask in place, observing COVID prec autions Neck - thyroid normal, no adenopathy, carotids: full, no JVD Chest - clear to auscultation bilaterally Heart - regular rhythm, without murmur or gallop , no rub Abdomen- obese, active bowel sounds Extremities - left great toe plantar surface with irregular open wound measuring approximately 8cm x4cm, no exposed bone visible. Serous drainage present on removed bandages. Erythema of the surrounding ti ssue present, no tracking of erythema up the foot or leg, ROM ankle and knee intact. Dorsum of the foot with erythema isolated to the great toe and extends t o midfoot, no open lesions present on this surface, however, great toe nail is darkened and loose. Sensation diminished distally. 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 Diabetic foot wound - currently on Antibiotic s per recent ED visit 5 days remaining. Discussed continued close monitoring, dressing changes discussed, supplies provided. Wound care consult placed. Di scussed warning signs that should prompt to see k imediate medical care including but not limited to worseining symtpoms, fever and chills. Qing ward voices understanding. RTC early next week for follow up evaluation. ahlima leach. 2. Uncontrolled DM2 - discus sed importance of blood sugar control especially in the setting of an open wound. [place] states und erstanding. Discussed medication use, healthy ADA diet and daily exerc ise as tollerated. 3. HTN with elevated BP toda y, will recheck next week. states elevation is related to increased discomfort and concern r elated to wound. Todays orders: Item Ordered START DATE STOP DATE ENTERED COMMUNITY CARE-WOUND C APR 10, 2021 APR 10, 2021 @10:21 RTC 1 week and as needed. I reviewed patient's plan of care with p keyla who verbalized understanding of recommendations and any/all changes as detailed in plan above. I have reviewed all imported/copied info rmation and it is up to date, accurate and relevant to today's visit. I reviewed medication list with patient, it is u p to date as of this appointment, a printed copy will be mailed to th e patient/caregiver and the patient/caregiver understood my instructions. The above was discussed with the who states understanding and agreement with current plan. Questions sought and answered . Total time in direct care and counseling 23 naz julio. ELE - Please print/send AVS. Thank you. /es/ MARY SOUZA MD, FACP STAFF PHYSICIAN Signed: 04/10/2021 13:19 Receipt Acknowledged By: * AWAITING SIGNATURE * SACHI MAYBERRY
--- OUTSIDE RECORDS SUMMARY | 2021-08-18 20:44 | External Medical Summary | Encounter Summary ---
:1965 Author Organization Department of [facility] Address [address] [place] [id number] Care Team Providers Name Role Phone SANDRA GASCA Primary Care Provider Unavailable Selected Encounter This section includes the information on record at [place] for the Encounter. Date/Time Encounter Type Encounter Description Reason Provider Source Mar 11, 2021 11:49 Outpatient Encounter PRIMARY CARE/MEDICINE AM [facility] Encounter Template Text not used by [place] Plan of Treatment: Future Appointments (+ 6 months) and Future Tests (+/- 45 days) The Plan of Treatment section includes future care activities for the patient from all [place] treatmentfacilities. This section includes future appointments and future orders which are active, pending orscheduled.Future Appointments This section includes appointments that were scheduled to occur 6 months from the date of the Encounter, up to a maximum of 20 appointments. The data comes from all [place] treatment facilities. Appointment Date/Time Appointment Type Appointment Facili ty Name Apr 08, 2021 02:00 PM AMBULATORY - MEDICINE [facility] Apr 10, 2021 10:00 AM AMBULATORY - MEDICINE [facility] Apr 10, 2021 10:30 AM AMBULATORY - MEDICINE [facility] Apr 13, 2021 08:15 AM AMBULATORY - MEDICINE [facility] Apr 15, 2021 03:30 PM AMBULATORY - MEDICINE [facility] Apr 21, 2021 08:00 AM AMBULATORY - MEDICINE [facility] May 04, 2021 09:40 AM AMBULATORY - NONE LUKE SANCHEZ [facility] Jun 24, 2021 01:00 PM AMBULATORY - NONE LUKERAJINDER Rivera D[facility] Aug 26, 2021 09:30 AM AMBULATORY - MEDICINE [facility] Sep 02, 2021 02:00 PM AMBULATORY - MEDICINE [facility] Sep 02, 2021 03:00 PM AMBULATORY - NONE [facility] Encounter Notes: All associated encounter notes This section contains the clinical notes associated to the Encounter. Date/Time Encounter Note(s) Provider Source Mar 11, 2021 11:49 AM ACCOUNTING OF DISCLOSURES NOTE: MARY SOUZA [facility] LOCAL TITLE: STATE PRESCRIPTION DRUG MONITORING PROGRAM NOTE STANDARD TITLE: ACCOUNTING OF DISCLOSURES NOTE DATE OF NOTE: MAR 11, 2021@11:49:56 ENTRY DATE: MAR 11, 2021@11:49:56 AUTHOR: MARY SOUZA COSIGNER: URGENCY: STATUS: COMPLETED This PDMP query was submitted by Adebayo Souza The clinical justification for this PDMP query i s to review controlled substances prescribed outside of the [facility], and any additional information that may become available, as an important compo nent of standard clinical care, and in accordance with [facility] policy. Patient information was shared with the PDMP [employer] [place]. No prescription(s) for controlled substances out side the [facility] were found in the last 90 days. /janet/ MARY SOUZA MD, FACP STAFF PHYSICIAN Signed: 03/11/2021 11:50
--- OUTSIDE RECORDS SUMMARY | 2021-08-18 20:44 | External Medical Summary | Encounter Summary ---
:1965 Author Organization Department of [facility] rs Address [address] [place] [address] Care Team Providers Name Role Phone SANDRA GASCA Primary Care Provider Unavailable Selected Encounter This section includes the information on record at [place] for the Encounter. Date/Time Encounter Type Encounter Description Reason Provider Source Apr 06, 2021 02:10 Outpatient Encounter COMMUNITY CARE PM CONSULT [facility] Encounter Template Text not used by [place] Plan of Treatment: Future Appointments (+ 6 months) and Future Tests (+/- 45 days) The Plan of Treatment section includes future care activities for the patient from all [place] treatmentfacilities. This section includes future appointments and future orders which are active, pending orscheduled.Future Appointments This section includes appointments that were scheduled to occur 6 months from the date of the Encounter, up to a maximum of 20 appointments. The data comes from all [place] treatment facilities. Appointment Date/Time Appointment Type Appointment Facili ty Name Apr 08, 2021 02:00 PM AMBULATORY - MEDICINE [facility] Apr 10, 2021 10:00 AM AMBULATORY - MEDICINE [facility] Apr 10, 2021 10:30 AM AMBULATORY - MEDICINE [facility] PORT[facility]O [facility] Apr 13, 2021 08:15 AM AMBULATORY - MEDICINE [facility] Apr 15, 2021 03:30 PM AMBULATORY - MEDICINE [facility] Apr 21, 2021 08:00 AM AMBULATORY - MEDICINE [facility] May 04, 2021 09:40 AM AMBULATORY - NONE [facility] SANCHEZ [facility] Jun 24, 2021 01:00 PM AMBULATORY - NONE [facility] Aug 26, 2021 09:30 AM AMBULATORY - MEDICINE [facility] Sep 02, 2021 02:00 PM AMBULATORY - MEDICINE [facility] PORTILLO [facility] Sep 02, 2021 03:00 PM AMBULATORY - NONE [facility] Active, Pending, and [...] the Encounter. The data comes from all [place] treatment facilities. Test Date/Time Test Type Test Details Facility Name May 05, 2021 10:49 AM Consult Order COMMUNITY CARE-PODIATRY MARGUERITE CASTELLANOS Cons Sustain Engineer's Choice [facility] Encounter Notes: All associated encounter notes This section contains the clinical notes associated to the Encounter. Date/Time Encounter Note(s) Provider Source Apr 06, 2021 02:10 PM NONVA NOTE: LUIS A ARRIAGA LOCAL TITLE: COMMUNITY CARE COORDINATION PLAN [facility] STANDARD TITLE: NONVA NOTE DATE OF NOTE: APR 06, 2021@14:10 ENTRY DATE: APR 08, 2021@13:01:15 AUTHOR: LUIS A ARRIAGA EXP COSIGNER: URGENCY: STATUS: COMPLETED COMMUNITY CARE COORDINATION PLAN Has ADDEND A self-presented to community emergency fa cility Emergency Notification Intake Date Presenting to the Facility: Mar @ [address] [place] [address] Care Hospital Name: Hospital: [facility] Address: [address] [place] [address]: [place] State: [place] Zip Code: [address] Chief complaint: LEFT BIG TOE PAIN Patient Admitted? No Community Facility Point of Contact: Portal Name: Rahul Demarco / Provider Email: [email or web address] Notification Date: 04/07/21 @ 0818 Notification ID: [id number] Prudent Layperson: No Status: POM Review Date Sent for Review: 04/08/21 /janet/ LUIS A YUAN Signed: 04/08/2021 13:04 Receipt Acknowledged By: 04/08/2021 16:29 /es/ MARY SOUZA MD, FACP STAFF PHYSICIAN 04/08/2021 14:42 /es/ MEAGAN ARCOS RN 04/10/2021 ADDENDUM STATUS: COMPLETED Patient presented to the ER with toe pain after dropping a washer on his toe. left toe swollen, red with a large subungual hem atoma and toenail almost completely avulsed. Open area 0.5cm in diameter at the base of the toe with serosanguineous drainage. No fractures, treated with antibioitics for infection. RNCM already followed up with patient on 04/08/21 . ER records to [facility]. /es/ VALENTIN NERI Registered Nurse Signed: 04/10/2021 09:49
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
--- OUTSIDE RECORDS SUMMARY | 2021-08-18 20:45 | External Medical Summary | Encounter Summary ---
:1965 Author Organization Department of [facility] Address [address] [place] [id number] Care Team Providers Name Role Phone GamalMalikSANDRA MARTINEZ Primary Care Provider Unavailable Selected Encounter This section includes the information on record at [place] for the Encounter. Date/Time Encounter Type Encounter Reason Provider Source Description Nov 27, 2020 Outpatient TELEPHONE PRIMARY ICD-10-CM M79.643 Aiyln PASTOR 12:30 PM Encounter CARE Pain in L unspecified hand with Provider Comments: Hand pain ([facility] [id number]) IHE Encounter Template Text not used by [facility] Assessments - Encounter Diagnoses This section includes the primary and secondary diagnoses documented for the Encounter. Date/Time Primary/Secondary Diagnosis Name Provider Source Diagnosis Nov 27, 2020 PRIMARY Pain in DANIEL MONTEJO [facility] 12:30 PM unspecified hand CLINIC Nov 27, 2020 SECONDARY Dorsalgia, DANIEL MONTEJO [facility] 12:30 PM unspecified CLINIC Nov 27, 2020 SECONDARY Headache, DANIEL MONTEJO [facility] 12:30 PM unspecified CLINIC Nov 27, 2020 SECONDARY Low back pain DANIEL MONTEJO [facility] 12:30 PM CLINIC Plan of Treatment: Future Appointments (+ [...] The data comes from all [place] treatment [facility]. Appointment Date/Time Appointment Type Appointment Facili ty Name Feb 10, 2021 08:00 AM AMBULATORY - MEDICINE [facility] Feb 23, 2021 10:30 AM AMBULATORY - MEDICINE [facility] Apr 08, 2021 02:00 PM AMBULATORY - MEDICINE [facility] Apr 10, 2021 10:00 AM AMBULATORY - MEDICINE [facility] Apr 10, 2021 10:30 AM AMBULATORY - MEDICINE [facility] Apr 13, 2021 08:15 AM AMBULATORY - MEDICINE [facility] Apr 15, 2021 03:30 PM AMBULATORY - MEDICINE [facility] Apr 21, 2021 08:00 AM AMBULATORY - MEDICINE [facility] May 04, 2021 09:40 AM AMBULATORY - NONE [facility] Active, Pending, and Scheduled Orders This section includes a listing of several types of active, pending, and scheduled orders, including clinic medications orders, diagnostic test orders, procedure orders and consult orders; where the start date of the order is 45 days before the date of the Encounter or 45 days after the date of the Encounter. The data comes from all [place] treatment [facility]. Test Date/Time Test Type Test Details Facility Name December 14, 2020 10:09 AM Consult Order [facility] Cons Accounts Receivable Specialist's Choice Social History: Smoking Status (Most current) and [...] 2020 11:30 AM VA-TOBACCO USER EVERY DAY [facility] Tobacco Use History This section includes a history of the smoking, or tobacco- related health factors, that were collected on or before the date of the Encounter. The data comes from the [place] facility where the Encounter took place. 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 [facility] Aug 27, 2020 11:30 AM VA-TOBACCO USE MED NO [facility] Aug 27, 2020 11:30 AM VA-TOBACCO USER EVERY DAY [facility] Sep 08, 2018 10:18 AM VA-TOBACCO USE 30 YEARS OR [facility] MORE Sep 08, 2018 10:18 AM VA-TOBACCO USE ADVICE [facility] Sep 08, 2018 10:18 AM 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 Oct 20, 2017 09:18 AM TOBACCO SCREEN COMPLETED [facility] No, not willing to quit now Oct 11, 2016 09:57 AM CURRENT TOBACCO USER [facility] Oct 11, 2016 09:57 AM TOBACCO MEDICATION [facility] Oct 11, 2016 09:57 AM TOBACCO SCREEN COMPLETED [facility] No, not willing to quit now Feb 20, 2015 10:04 AM CURRENT TOBACCO US[facility] Feb 20, 2015 10:04 AM TOBACCO SCREEN COMPLETED [facility] No, not willing to quit now Jan 25, 2014 08:44 AM CURRENT TOBACCO US[facility] Jan 25, 2014 08:44 AM TOBACCO SCREEN COMPLETED [facility] No, not willing to quit now Radiology Reports: +/- 30 days of the [...] data comes from all [place] treatment facilities. Date/Time Radiology Report Provider Source Oct 29, 2020 01:28 PM ALLA NELSON 5V: LISETTE ESTEBAN [id number] -NOV 16 4 M [facility] Exm Date: OCT 29, 2020@13:28 Req Phys: SHARMIN SUH Loc: OUTSIDE [facility] RAD -X (Req'g Loc) Img Loc: [facility]ILD[facility] Service: Unknown (Case 86 COMPLETE) HIPS BILAT 5V (RAD Detailed) CPT:91866 Reason for Study: OUTSIDE STUDY IMPORTED ARB Clinical History: OUTSIDE STUDY IMPORTED ARB Report Status: Electronically Filed Date Report ed: Report: Impression: OUTSIDE STUDY IMPORTED Primary Diagnostic Code: VERIFIED BY: / *ELECTRONICALLY FILED* Oct 29, 2020 01:24 PM SPINE LUMBOSACRAL MIN 2 VIEWS: LUKE MORTENSENINLISETTE DAVIS ZAYDA [id number] -NOV 16 4 M [facility] Exm Date: OCT 29, 2020@13:24 Req Phys: SHARMIN SUH Loc: OUTSIDE WW RAD -X (Req'g Loc) Img Loc: [place] [address] Service: Unknown (Case 87 COMPLETE) SPINE LUMBOSACRAL MIN 2 VIEWS (RAD Detailed) CPT:92462 Reason for Study: OUTSIDE STUDY IMPORTED ARB Clinical History: OUTSIDE STUDY IMPORTED ARB Report Status: Electronically Filed Date Report ed: Report: Impression: OUTSIDE STUDY IMPORTED Primary Diagnostic Code: VERIFIED BY: / *ELECTRONICALLY FILED* Oct 29, 2020 01:18 PM HAND LEFT: LISETTE ESTEBAN ZAYDA [id number] -NOV 16 4 M [facility] Exm Date: OCT 29, 2020@13:18 Req Phys: SHARMIN SUH Loc: OUTSIDE [facility] RAD -X (Req'g Loc) Img Loc: [place] [address] Service: Unknown (Case 88 COMPLETE) HAND LEFT (RAD Detailed) CPT: 61656 CPT Modifiers : LT LEFT SIDE Reason for Study: OUTSIDE STUDY IMPORTED ARB Clinical History: OUTSIDE STUDY IMPORTED ARB Report Status: Electronically Filed Date Report ed: Report: Impression: OUTSIDE STUDY IMPORTED Primary Diagnostic Code: VERIFIED BY: / *ELECTRONICALLY FILED* Oct 29, 2020 01:17 PM HAND RIGHT: LUKE MORTENSENINLISETTE DAVIS ZAYDA [id number] -NOV 16 4 M [facility] Exm Date: OCT 29, 2020@13:17 Req Phys: SHARMIN SUH Loc: OUTSIDE [facility] RAD -X (Req'g Loc) [facility] Loc: [facility] 86 Service: Unknown (Case 89 COMPLETE) HAND RIGHT (RAD Detailed) CPT :92453 CPT Modifiers : RT RIGHT SIDE Reason for Study: OUTSIDE STUDY IMPORTED ARB Clinical History: OUTSIDE STUDY IMPORTED ARB Report Status: Electronically Filed Date Report ed: Report: Impression: OUTSIDE STUDY IMPORTED Primary Diagnostic Code: VERIFIED BY: / *ELECTRONICALLY FILED* Oct 29, 2020 01:07 PM SPINE CERVICAL MIN 4 VIEWS: LUKE MDaily VELASQUEZRENZOLISETTE PRIEST [id number] -NOV 16 4 M [facility] Exm Date: OCT 29, 2020@13:07 Req Phys: SHARMIN SUH Loc: OUTSIDE [facility] RAD -X (Req'g Loc) Img Loc: [place] [address] Service: Unknown (Case 120 COMPLETE) SPINE CERVICAL MIN 4 VIEWS ( RAD Detailed) CPT:96936 Reason for Study: OUTSIDE STUDY IMPORTED ARB Clinical History: OUTSIDE STUDY IMPORTED ARB Report Status: Electronically Filed Date Report ed: Report: Impression: OUTSIDE STUDY IMPORTED Primary Diagnostic Code: VERIFIED BY: / *ELECTRONICALLY FILED* Oct 29, 2020 12:[address] HEAD WITHOUT CONTRAST: LUKE BEALLISETTE PRIEST [id number] -NOV 16 196 4 M [facility] Exm Date: OCT 29, 2020@12:45 Req Phys: NEFTALI PASTOR Pat Loc: OUTSIDE WW CT- X (Req'g Loc) Img Loc: OUTSIDE WWW CT Service: Unknown (Case [id number] COMPLETE) CT HEAD WITHOUT CONTRAST (CT Detailed) CPT:50635 Reason for Study: Outside Study Imported ART Clinical History: Outside Study Imported ART Report Status: Electronically Filed Date Report ed: Report: Impression: OUTSIDE STUDY IMPORTED VERIFIED BY: / *ELECTRONICALLY FILED* Encounter Notes: All associated encounter notes This section contains the clinical notes associated to the Encounter. Date/Time Encounter Note(s) Provider Source December 14, 2020 09:55 AM PRIMARY CARE TELEPHONE ENCOUNTER NOTE: NEFTALI GONZALEZ [facility] LOCAL TITLE: PROVIDER TELEPHONE NOTE STANDARD TITLE: PRIMARY CARE TELEPHONE ENCOUNTER NOTE DATE OF NOTE: DECEMBER 14, 2020@09:55 ENTRY DATE: DECEMBER 14, 2020@09:55:40 AUTHOR: NEFTALI PASTOR EXP COSIGNER: URGENCY: STATUS: COMPLETED SUBJECT: F/up appt to review imaging results. RESULTS VISIT NOTE This visit is being conducted by phone in the se tting of increased preparation measures being taken by [facility]el[facility] & surrounding Community Based Out patient Clinics in response to COVID-19, as a precautionary measure given e national growth of the COVID-19 related infections. This will assist [facility] national social distancing efforts to slow the spread of this virus and dec rease unnecessary risk of exposure to our Veterans. All non-urgent visits have been changed to phone or [facility] Video Connect; however, Shepherd has been m wesley aware that for any urgent needs, not able to be assessed or addressed by t hese methods, then a [id number] appointment can be scheduled. LISETTE BEAL 55 year old MALE. Patient identification is confirmed by full name , date of and the last four of their social security number was verifie d prior to interview & discussion at the start of today's appointment. APPOINTMENT TYPE: Telephone Appointment. CHIEF COMPLAINT/HISTORY OF PRESENT ILLNESS: Tele-Visit to review & discuss recent imaging/sc an results. F/up tele-visit to review the following imaging results: 1) Bilateral Hand Xr's. 2) Lumbar Spine Xr's. 3) Bilateral Hip Xr's. 4) Cervical Spine Xr's. 5) CT Brain w/o contrast. Imaging Studies Results Revi ewed & Discussed During Today's Visit. Abnormals, if any, were further reviewed, discussed and addres sed during today's visit w/ Shepherd. MEDICATIONS: Medication List Reviewed, Discussed & Updated w/ Today. Shepherd Reports No Medication/Treatment Complain ts &/or Concerns. Active Medication List: Active and Recently Outpatient Medicatio ns (including Supplies): Active Outpatient Medications Status 1) ACCU-CHEK GUIDE (GLUCOSE) TEST STRIP USE 1 ST RIP ACTIVE THREE TIMES A DAY FOR BLOOD GLUCOSE TESTING 2) ACCU-CHEK GUIDE(GLUCOSE)HI/LO CNTRL SOLN USE ONE DROP ACTIVE DIRECTED NEEDED TO CALIBRATE THE ACCU-MITZY K GUIDE METER 3) ALOGLIPTIN 12.5MG TAB TAKE ONE TABLET BY MOUT H EVERY ACTIVE DAY FOR DIABETES 4) DICLOFENAC NA 1% TOP GEL APPLY 2-4 GRAMS D IRECTED ACTIVE TO AFFECTED AREA TWICE A DAY NEEDED FOR PAIN * LIMIT DAILY DOSE TO 8 GRAMS TO UPPER BODY AND 1 6 GRAMS TO LOWER BODY 5) INSULIN,GLARGINE 100 UNIT/ML 3ML SOLOSTR INJE CT 23 ACTIVE UNITS UNDER SKIN AT BEDTIME 6) NAPROXEN 500MG TAB TAKE ONE TABLET BY MOUTH T WICE A ACTIVE DAY FOR PAIN 7) PREGABALIN 150MG ORAL CAP TAKE ONE CAPSULE (1 50MG) BY ACTIVE MOUTH TWICE A DAY FOR DIABETIC NERVE PAIN Inactive Outpatient Medications Status 1) ACCU-CHEK GUIDE (GLUCOSE) METER USE THE METER DIRECTED NEEDED FOR BLOOD GLUCOSE TESTING 2) LISINOPRIL 10MG TABLET TAKE ONE TABLET BY PEPPER TH DAILY TO LOWER BLOOD PRESSURE Active Non-VA Medications Status 1) Non-VA ACETAMINOPHEN 500MG TAB 500MG BY MOUTH ACTIVE NEEDED 10 Total Medications No Active Remote Medications for this patient *ALLERGIES: *Patient has answered NKA DIAGNOSIS: List Reviewed, Discussed & Updated Today w/ Vete ran. Chronic neck & back pain/discomfort. Chronic bilateral hand pain/discomfort. Chronic bilateal hip pain/discomfort. Chronic headaches. ACTIVE/HISTORICAL PROBLEM LIST: Active Problem Hand pain M79.643 08/27/2020 NEFTALI PASTOR Headache (SCT [id number]) R51.9 08/27/2020 NEFTALI PASTOR History of surgery R69. 11/08/2019 NEFTALI PASTOR Essential hypertension I10. 09/08/2018 Ailyn PASTOR Dental caries K02.9 09/08/2018 NEFTALI PASTOR History of colonoscopy R69. 08/27/2020 Ailyn PASTOR Well adult Z00.00 08/25/2020 NEFTALI PASTOR Neck pain M54.9 01/20/2018 NEFTALI PASTOR Chronic back pain M54.5 01/19/2017 NEFTALI PASTOR Stone-Stahli line H18.892 01/02/2016 Radha ROMO ACHEL Combined form of senile cataract H2 01/02/2016 Iman UROHARA,MEENA Obesity E66.9 01/21/2018 NEFTALI PASTOR Chronic pain G89.4 11/30/2017 NEFTALI PASTOR Tobacco use Z72.0 10/11/2016 NEFTALI PASTOR Depressive disorder F32.9 01/09/2016 JANE PASTOR Diabetes mellitus E11.9 08/27/2020 LEONARDO LEI PLAN: Shepherd was advised during todays visit to matilde dennis w/ current plan of are, except for stated additions and/or changes noted below during today's appointment. DISCUSSION: Referral orders for the followin) PT w/ focus on the c-spine, l-spine & bilater al hips. 2) Orthopedic Hand Specialist r/t chronic bilate ral hand pain and noted abnormal findings found on hand Xr's. (severe antonio [place] erosions). ORDERS ENTERED: ORDERS TODAY - NONE FOUND Shepherd has been advised to Rtc if s/sx change, worsen, or persist. Instructed to Rtca & F/up on an as needed basis. Total amount of time that was spent in counselin g & coordination of 's care was appx 10-20 mins mins verbalizes understanding of today's clinical course & Plan of Care that was discuss & reviewed with them today. All questions & concer ns were answered and addressed. actively participated in laurie quijano's Plan of Care & agrees to proceed forward w/ POC. Return To Clinic (RTC): RTC orders have been submitted during a previous appt/visit & remain active & unchanged @ this time. CARE IN THE COMMUNITY ([facility]) or OFFICE OF [facility] CARE (OCC): was informed about the process of [facility]/O CC, in regards to referrals/consults, that will be submitted on r behalf. Information regarding the [facility]/OCC Department in formation was given to the today. Shepherd was informed that onc e the referral(s)/order(s) have been authorized & approved, a representativ e from [facility]/O[facility] Department will contact them. /janet/ NEFTALI PASTOR Nurse Practitioner Signed: 12/14/2020 10:08
--- OUTSIDE RECORDS SUMMARY | 2021-08-18 20:45 | External Medical Summary | Encounter Summary ---
:1965 Author Organization Department of [facility] Address [address] [place] [address] Care Team Providers Name Role Phone SANDRA GASCA Primary Care Provider Unavailable Selected Encounter This section includes the information on record at [place] for the Encounter. Date/Time Encounter Type Encounter Description Reason Provider Source Feb 23, 2021 10:26 Outpatient Encounter GENERAL INTERNAL AM MEDICINE IHE Encounter Template Text not used by [place] Plan of Treatment: Future Appointments (+ 6 months) and Future Tests (+/- 45 days) The Plan of Treatment section includes future care activities for the patient from all [place] treatmentfacilities. This section includes future appointments and future orders which are active, pending orscheduled.Future Appointments This section includes appointments that were scheduled to occur 6 months from the date of the Encounter, up to a maximum of 20 appointments. The data comes from all [place] treatment facilities. Appointment Date/Time Appointment Type Appointment Facili ty Name Apr 08, 2021 02:00 PM AMBULATORY - MEDICINE [facility] Apr 10, 2021 10:00 AM AMBULATORY - MEDICINE [facility] Apr 10, 2021 10:30 AM AMBULATORY - MEDICINE [facility] Apr 13, 2021 08:15 AM AMBULATORY - MEDICINE [facility] Apr 15, 2021 03:30 PM AMBULATORY - MEDICINE [facility] Apr 21, 2021 08:00 AM AMBULATORY - MEDICINE [facility] May 04, 2021 09:40 AM AMBULATORY - NONE [facility] Jun 24, 2021 01:00 PM AMBULATORY - NONE [facility] Aug 26, 2021 09:30 AM AMBULATORY - MEDICINE [facility] Encounter Notes: All associated encounter notes This section contains the clinical notes associated to the Encounter. Date/Time Encounter Note(s) Provider Source Feb 23, 2021 10:26 AM INFECTIOUS DISEASE RISK ASSESSMENT SCR EENING NOTE: PROSPER JOHNSON LOCAL TITLE: SCREENING COVID [facility] STANDARD TITLE: INFECTIOUS DISEASE RISK ASSESSME NT SCREENING NOT DATE OF NOTE: FEB 23, 2021@10:26 ENTRY DATE: FEB 23, 2021@10:26:14 AUTHOR: PROSPER JOHNSON EXP COSIGNER: URGENCY: STATUS: COMPLETED Coronavirus Disease 2019 (COVID-19) Screen The patient was asked if in the last 14 days the y have had new onset of any COVID-19 symptoms. They report the following: No symptoms Within the past 14 days, the patient reports no exposure to someone with a febrile/respiratory illness or someone with a kn own or suspected case of COVID-19 (within 6 feet for > 15 minutes). Result: Screen is negative. /janet/ PROSPER JOHNSON Optometry Tech Signed: 02/23/2021 10:26
--- OUTSIDE RECORDS SUMMARY | 2021-08-18 20:45 | External Medical Summary | Encounter Summary ---
:1965 Author Organization Department of [facility] Address [address] [place] [id number] Care Team Providers Name Role Phone SANDRA GASCA Primary Care Provider Unavailable Selected Encounter This section includes the information on record at CT for the Encounter. Date/Time Encounter Type Encounter Description Reason Provider Source Nov 20, 2020 06:14 Outpatient Encounter COMMUNITY CARE PM CONSULT IHE Encounter Template Text not used by CT Plan of Treatment: Future Appointments (+ 6 months) and Future Tests (+/- 45 days) The Plan of Treatment section includes future care activities for the patient from all CT treatmentfacilities. This section includes future appointments and future orders which are active, pending orscheduled.Future Appointments This section includes appointments that were scheduled to occur 6 months from the date of the Encounter, up to a maximum of 20 appointments. The data comes from all CT treatment facilities. Appointment Date/Time Appointment Type Appointment Facili ty Name Nov 27, 2020 12:30 PM AMBULATORY - MEDICINE [facility] Feb 10, 2021 08:00 AM AMBULATORY - MEDICINE [facility] Feb 23, 2021 10:30 AM AMBULATORY - MEDICINE [facility] Apr 08, 2021 02:00 PM AMBULATORY - MEDICINE [facility] Apr 10, 2021 10:00 AM AMBULATORY - MEDICINE [facility] Apr 10, 2021 10:30 AM AMBULATORY - MEDICINE [facility] Apr 13, 2021 08:15 AM AMBULATORY - MEDICINE [facility] Apr 15, 2021 03:30 PM AMBULATORY - MEDICINE [facility] Apr 21, 2021 08:00 AM AMBULATORY - MEDICINE [facility] May 04, 2021 09:40 AM [facility] Active, Pending, and Scheduled Orders This section includes a listing of several types of active, pending, and scheduled orders, including clinic medications orders, diagnostic test orders, procedure orders and consult orders; where the start date of the order is 45 days before the date of the Encounter or 45 days after the date of the Encounter. The data comes from all CT treatment [facility]. Test Date/Time Test Type Test Details Facility Name December 14, 2020 10:09 AM Consult Order COMMUNITY CARE-[facility] Cons [employer] Radiology Reports: +/- 30 days of [...] the Encounter. The data comes from all CT treatment [facility]. Date/Time Radiology Report Provider Source Oct 29, 2020 01:28 PM HIPS BILAT 5V: LISETTE ESTEBAN [id number] -[birth year] 2 M [facility] Exm Date: OCT 29, 2020@13:28 Req Phys: SHARMIN SUH Loc: OUTSIDE WW RAD -X (Req'g Loc) Img Loc: BUILDING 86 Service: Unknown (Case 86 COMPLETE) HIPS BILAT 5V (RAD Detailed) CPT:62794 Reason for Study: OUTSIDE STUDY IMPORTED ARB Clinical History: OUTSIDE STUDY IMPORTED ARB Report Status: Electronically Filed Date Report ed: Report: Impression: OUTSIDE STUDY IMPORTED Primary Diagnostic Code: VERIFIED BY: / *ELECTRONICALLY FILED* Oct 29, 2020 01:24 PM SPINE LUMBOSACRAL MIN 2 VIEWS: LISETTE WHATLEY ZAYDA [id number] -NOV 16 4 M [facility] Exm Date: OCT 29, 2020@13:24 Req Phys: SHARMIN SUH Loc: OUTSIDE WW RAD -X (Req'g Loc) Img Loc: [facility]ILD[facility] 86 Service: Unknown (Case 87 COMPLETE) SPINE LUMBOSACRAL MIN 2 VIEWS (RAD Detailed) CPT:64204 Reason for Study: OUTSIDE STUDY IMPORTED ARB Clinical History: OUTSIDE STUDY IMPORTED ARB Report Status: Electronically Filed Date Report ed: Report: Impression: OUTSIDE STUDY IMPORTED Primary Diagnostic Code: VERIFIED BY: / *ELECTRONICALLY FILED* Oct 29, 2020 01:18 PM HAND LEFT: LISETTE ESTEBAN ZAYDA [id number] -NOV 16 4 M [facility] Exm Date: OCT 29, 2020@13:18 Req Phys: SHARMIN SUH Loc: OUTSIDE WW RAD -X (Req'g Loc) Img Loc: [facility] 86 Service: Unknown (Case 88 COMPLETE) HAND LEFT (RAD Detailed) CPT: 32972 CPT Modifiers : LT LEFT SIDE Reason for Study: OUTSIDE STUDY IMPORTED ARB Clinical History: OUTSIDE STUDY IMPORTED ARB Report Status: Electronically Filed Date Report ed: Report: Impression: OUTSIDE STUDY IMPORTED Primary Diagnostic Code: VERIFIED BY: / *ELECTRONICALLY FILED* Oct 29, 2020 01:17 PM HAND RIGHT: LISETTE ESTEBAN ZAYDA [id number] -NOV 16 4 M [facility] Exm Date: OCT 29, 2020@13:17 Req Phys: SHARMIN SUH Loc: OUTSIDE WW RAD -X (Req'g Loc) Img Loc: [facility] 86 Service: Unknown (Case 89 COMPLETE) HAND RIGHT (RAD Detailed) CPT :85426 CPT Modifiers : RT RIGHT SIDE Reason for Study: OUTSIDE STUDY IMPORTED ARB Clinical History: OUTSIDE STUDY IMPORTED ARB Report Status: Electronically Filed Date Report ed: Report: Impression: OUTSIDE STUDY IMPORTED Primary Diagnostic Code: VERIFIED BY: / *ELECTRONICALLY FILED* Oct 29, 2020 01:07 PM SPINE CERVICAL MIN 4 VIEWS: LISETTE WHATLEY [id number] -NOV 16 4 M [facility] Exm Date: OCT 29, 2020@13:07 Req Phys: SHARMIN SUH Loc: OUTSIDE RAD -X (Req'g Loc) Img Loc: [place] [address] Service: Unknown (Case 120 COMPLETE) SPINE CERVICAL MIN 4 VIEWS ( RAD Detailed) CPT:17607 Reason for Study: OUTSIDE STUDY IMPORTED ARB Clinical History: OUTSIDE STUDY IMPORTED ARB Report Status: Electronically Filed Date Report ed: Report: Impression: OUTSIDE STUDY IMPORTED Primary Diagnostic Code: VERIFIED BY: / *ELECTRONICALLY FILED* Oct 29, 2020 12:[address] HEAD WITHOUT CONTRAST: LISETTE WHATLEY ZAYDA [id number] -NOV 16 4 M [facility] Exm Date: OCT 29, 2020@12:45 Req Phys: NEFTALI PASTOR Loc: OUTSIDE CT- X (Req'g Loc) Img Loc: OUTSIDE [facility] CT Service: Unknown (Case 146 COMPLETE) CT HEAD WITHOUT CONTRAST (CT Detailed) CPT:16755 Reason for Study: Outside Study Imported ART Clinical History: Outside Study Imported ART Report Status: Electronically Filed Date Report ed: Report: Impression: OUTSIDE STUDY IMPORTED VERIFIED BY: / *ELECTRONICALLY FILED* Encounter Notes: All associated encounter notes This section contains the clinical notes associated to the Encounter. Date/Time Encounter Note(s) Provider Source Nov 20, 2020 06:14 PM ADMINISTRATIVE NOTE: JIM FOX [facility] TITLE: ADMINISTRATIVE NOTE [facility] STANDARD TITLE: ADMINISTRATIVE NOTE DATE OF NOTE: NOV 20, 2020@18:14 ENTRY DATE: NOV 20, 2020@18:15:02 AUTHOR: JIM FOX EXP COSIGNER: URGENCY: STATUS: COMPLETED The veterans enrollment status is "COPAY TEST RE QUIRED" The was mailed the following letter: Date: NOV 20, 2020 LISETTE BEAL [address] [place] [address] Dear LISETTE BEAL, According to our records, we do not have a curr ent VA Form 10-10EZR, Health Benefits Update Form, on record. This is to info rm you that your financial assessment (Copay Test) is required. Thi s determines if you will have a Co-Pay for Medications & Office visits, & also if you a re eligible for travel reimbursement and is required each year. What Do You Need to Do? Complete it entirely, sign and date the form, r eturn VA Form 10-10EZR, providing information based on calendar . What If You Have Questions? If you have questions, mina cheng contact me at or [phone], Ext: [phone] during our normal business hours of Tuesday thru Tuesday, from 8:00am to 4:00pm. Sincerely, Enrollment/Eligibility Department /es/ JIM FOX [employer] Signed: 11/20/2020 18:15
--- OUTSIDE RECORDS SUMMARY | 2021-08-18 20:45 | External Medical Summary | Encounter Summary ---
:1965 Author Organization Department of [facility] Address [address] [place] [address] Care Team Providers Name Role Phone SANDRA GASCA Primary Care Provider Unavailable Selected Encounter This section includes the information on record at [place] for the Encounter. Date/Time Encounter Type Encounter Description Reason Provider Source Feb 11, 2021 03:13 Outpatient Encounter PRIMARY CARE/MEDICINE PM IHE Encounter Template Text not used by [place] Plan of Treatment: Future Appointments (+ 6 months) and Future Tests (+/- 45 days) The Plan of Treatment section includes future care activities for the patient from all [place] treatmentfacilities. This section includes future appointments and future orders which are active, pending orscheduled.Future Appointments This section includes appointments that were scheduled to occur 6 months from the date of the Encounter, up to a maximum of 20 appointments. The data comes from all [place] treatment facilities. Appointment Date/Time Appointment Type Appointment Facili ty Name Feb 23, 2021 10:30 AM AMBULATORY - MEDICINE [facility] Apr 08, 2021 02:00 PM AMBULATORY - MEDICINE [facility] Apr 10, 2021 10:00 AM AMBULATORY - MEDICINE [facility] Apr 10, 2021 10:30 AM AMBULATORY - MEDICINE [facility] Apr 13, 2021 08:15 AM AMBULATORY - MEDICINE [facility] Apr 15, 2021 03:30 PM AMBULATORY - MEDICINE [facility] Apr 21, 2021 08:00 AM AMBULATORY - MEDICINE [facility] May 04, 2021 09:40 AM [facility] Jun 24, 2021 01:00 PM AMBULATORY - NONE [facility] Encounter Notes: All associated encounter notes This section contains the clinical notes associated to the Encounter. Date/Time Encounter Note(s) Provider Source Feb 11, 2021 03:13 PM PHYSICIAN NOTE: NIKI VAUGHAN [facility] LOCAL TITLE: OUTSIDE MEDICAL RECORD - SUMMARY STANDARD TITLE: PHYSICIAN NOTE DATE OF NOTE: FEB 11, 2021@15:13 ENTRY DATE: FEB 11, 2021@15:13:21 AUTHOR: NIKI VAUGHAN I EXP COSIGNER: URGENCY: STATUS: COMPLETED Date of Visit: 02/10/21 Outside Provider: Kishan Kim PT Location: [facility]. Reason for Visit: plan of care requesting sig an d return. Placed in provider folder. /janet/ NIKI VAUGHAN LPN Signed: 02/11/2021 15:14
--- OUTSIDE RECORDS SUMMARY | 2021-08-18 20:45 | External Medical Summary | Encounter Summary ---
:1965 Author Organization Department [facility] Address [address] [place] [address] Care Team Providers Name Role Phone SANDRA GASCA Primary Care Provider Unavailable Selected Encounter This section includes the information on record at [place] for the Encounter. Date/Time Encounter Type Encounter Reason Provider Source Description Nov 20, 2020 03:00 Outpatient TELEPHONE PRIMARY DANII PASTOR RK L PM Encounter CARE IHE Encounter Template Text not used by [place] Plan of Treatment: Future Appointments (+ 6 months) and Future Tests (+/- 45 days) The Plan of Treatment section includes future care activities for the patient from all [place] treatmentfacilities. This section includes future appointments and future orders which are active, pending orscheduled.Future Appointments This section includes appointments that were scheduled to occur 6 months from the date of the Encounter, up to a maximum of 20 appointments. The data comes from all [place] treatment facilities. Appointment Date/Time Appointment Type Appointment Facili ty Name Nov 27, 2020 12:30 PM AMBULATORY - MEDICINE [facility] Feb 10, 2021 08:00 AM AMBULATORY - MEDICINE [facility] Feb 23, 2021 10:30 AM AMBULATORY - MEDICINE [facility] Apr 08, 2021 02:00 PM AMBULATORY - MEDICINE [facility] Apr 10, 2021 10:00 AM AMBULATORY - MEDICINE [facility] Apr 10, 2021 10:30 AM AMBULATORY - MEDICINE [facility] Apr 13, 2021 08:15 AM AMBULATORY - MEDICINE [facility] Apr 15, 2021 03:30 PM AMBULATORY - MEDICINE [facility] Apr 21, 2021 08:00 AM AMBULATORY - MEDICINE [facility] May 04, 2021 09:40 AM AMBULATORY - NONE [facility] Active, Pending, and Scheduled Orders This section includes a listing of several types of active, pending, and scheduled orders, including clinic medications orders, diagnostic test orders, procedure orders and consult orders; where the start date of the order is 45 days before the date of the Encounter or 45 days after the date of the Encounter. The data comes from all [place] treatment facilities. 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 Date/Time Current Smoking Status Comment Facility Aug 27, 2020 11:30 AM VA-TOBACCO USER EVERY DAY [facility] Tobacco Use History This section includes a history of the smoking, or tobacco- related health factors, that were collected on or before the date of the Encounter. The data comes from the [place] facility where the Encounter took place. 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 NO [facility] Aug 27, 2020 11:30 AM VA-TOBACCO USE MED NO [facility] Aug 27, 2020 11:30 AM VA-TOBACCO USER EVERY DAY [facility] Sep 08, 2018 10:18 AM VA-TOBACCO USE 30 YEARS OR [facility] MORE Sep 08, 2018 10:18 AM VA-TOBACCO USE ADVICE [facility] Sep 08, 2018 10:18 AM VA-TOBACCO USE DIRECTOR OF SEARCH ENGINE OPTIMIZATION NO [facility] Sep 08, 2018 10:18 AM VA-TOBACCO USE MED NO RENA YIP [facility] Sep 08, 2018 10:18 AM VA-TOBACCO USE WI 30 MIN Heather [facility] Sep 08, 2018 10:18 AM VA-TOBACCO USER EVERY DAY [facility] Oct 20, 2017 09:18 AM CURRENT TOBACCO USER [facility] Oct 20, 2017 09:18 AM TOBACCO SCREEN COMPLETED L [facility] No, not willing to quit now Oct 11, 2016 09:57 AM CURRENT TOBACCO USER [facility] Oct 11, 2016 09:57 AM TOBACCO MEDICATION JENNIFER N [place] [facility] Oct 11, 2016 09:57 AM TOBACCO SCREEN COMPLETED Heather [facility] No, not willing to quit now Feb 20, 2015 10:04 AM CURRENT TOBACCO USER [facility] Feb 20, 2015 10:04 AM TOBACCO SCREEN COMPLETED [facility] No, not willing to quit now Jan 25, 2014 08:44 AM CURRENT TOBACCO USER [facility] Jan 25, 2014 08:44 AM TOBACCO SCREEN COMPLETED [facility] No, not willing to quit now Radiology [...] the Encounter. The data comes from all [place] treatment facilities. Date/Time Radiology Report Provider Source Oct 29, 2020 01:28 PM HIPS BILAT 5V: LISETTE ESTEBAN [id number] -[birth year], [birth year] 4 M [facility] Exm Date: OCT 29, 2020@13:28 Req Phys: SHARMIN SUH Loc: OUTSIDE WW RAD -X (Req'g Loc) Img Loc: [facility] 86 Service: Unknown (Case 86 COMPLETE) HIPS BILAT 5V (RAD Detailed) CPT:36556 Reason for Study: OUTSIDE STUDY IMPORTED ARB Clinical History: OUTSIDE STUDY IMPORTED ARB Report Status: Electronically Filed Date Report ed: Report: Impression: OUTSIDE STUDY IMPORTED Primary Diagnostic Code: VERIFIED BY: / *ELECTRONICALLY FILED* Oct 29, 2020 01:24 PM SPINE LUMBOSACRAL MIN 2 VIEWS: LISETTE WHATLEY ZAYDA [id number] -NOV 16 4 M [facility] Exm Date: OCT 29, 2020@13:24 Req Phys: SHARMIN SUH Loc: OUTSIDE WW RAD -X (Req'g Loc) Img Loc: [place] [address] Service: Unknown (Case 87 COMPLETE) SPINE LUMBOSACRAL MIN 2 VIEWS (RAD Detailed) CPT:72303 Reason for Study: OUTSIDE STUDY IMPORTED ARB Clinical History: OUTSIDE STUDY IMPORTED ARB Report Status: Electronically Filed Date Report ed: Report: Impression: OUTSIDE STUDY IMPORTED Primary Diagnostic Code: VERIFIED BY: / *ELECTRONICALLY FILED* Oct 29, 2020 01:18 PM HAND LEFT: LISETTE ESTEBAN ZAYDA [id number] -NOV 16 4 M [facility] Exm Date: OCT 29, 2020@13:18 Req Phys: SHARMIN SUH Loc: OUTSIDE WW RAD -X (Req'g Loc) Img Loc: [place] [address] Service: Unknown (Case 88 COMPLETE) HAND LEFT (RAD Detailed) CPT: 61417 CPT Modifiers : LT LEFT SIDE Reason for Study: OUTSIDE STUDY IMPORTED ARB Clinical History: OUTSIDE STUDY IMPORTED ARB Report Status: Electronically Filed Date Report ed: Report: Impression: OUTSIDE STUDY IMPORTED Primary Diagnostic Code: VERIFIED BY: / *ELECTRONICALLY FILED* Oct 29, 2020 01:17 PM HAND RIGHT: LISETTE ESTEBAN ZAYDA [id number] -NOV 16 4 M [facility] Exm Date: OCT 29, 2020@13:17 Req Phys: SHARMIN SUH Loc: OUTSIDE RAD -X (Req'g Loc) Img Loc: [facility] 86 Service: Unknown (Case 89 COMPLETE) HAND RIGHT (RAD Detailed) CPT :05756 CPT Modifiers : RT RIGHT SIDE Reason for Study: OUTSIDE STUDY IMPORTED ARB Clinical History: OUTSIDE STUDY IMPORTED ARB Report Status: Electronically Filed Date Report ed: Report: Impression: OUTSIDE STUDY IMPORTED Primary Diagnostic Code: VERIFIED BY: / *ELECTRONICALLY FILED* Oct 29, 2020 01:07 PM SPINE CERVICAL MIN 4 VIEWS: LISETTE WHATLEY [id number] -NOV 16 4 M [facility] Exm Date: OCT 29, 2020@13:07 Req Phys: SHARMIN SUH Loc: OUTSIDE RAD -X (Req'g Loc) Img Loc: [place] [address] Service: Unknown (Case 120 COMPLETE) SPINE CERVICAL MIN 4 VIEWS ( RAD Detailed) CPT:75125 Reason for Study: OUTSIDE STUDY IMPORTED ARB Clinical History: OUTSIDE STUDY IMPORTED ARB Report Status: Electronically Filed Date Report ed: Report: Impression: OUTSIDE STUDY IMPORTED Primary Diagnostic Code: VERIFIED BY: / *ELECTRONICALLY FILED* Oct 29, 2020 12:[address] HEAD WITHOUT CONTRAST: LISETTE WHATLEY [id number] -NOV 16 4 M [facility] Exm Date: OCT 29, 2020@12:45 Req Phys: NEFTALI PASTOR Loc: OUTSIDE CT- X (Req'g Loc) Img Loc: OUTSIDE [facility] CT Service: Unknown (Case 146 COMPLETE) CT HEAD WITHOUT CONTRAST (CT Detailed) CPT:06739 Reason for Study: Outside Study Imported ART Clinical History: Outside Study Imported ART Report Status: Electronically Filed Date Report ed: Report: Impression: OUTSIDE STUDY IMPORTED VERIFIED BY: / *ELECTRONICALLY FILED* Encounter Notes: All associated encounter notes This section contains the clinical notes associated to the Encounter. Date/Time Encounter Note(s) Provider Source Nov 20, 2020 03:20 PM NO SHOW NOTE: NEFTALI PASTOR [facility] LOCAL TITLE: NO SHOW NOTE STANDARD TITLE: NO SHOW NOTE DATE OF NOTE: NOV 20, 2020@15:20 ENTRY DATE: NOV 20, 2020@15:21:29 AUTHOR: NEFTALI PASTOR EXP COSIGNER: URGENCY: STATUS: COMPLETED SUBJECT: f/up on imaging results. NO SHOW NOTE Has ADDENDA PROVIDER VISIT -- NO SHOW NOTE [facility] 55 [facility] M[facility]. Patient identification is confirmed by full name , date of and the last four of their social security number was verifie d prior to interview & discussion at the start of today's appointment. APPOINTMENT TYPE: Telephone REASON FOR TODAY'S VISIT: review imaging results . NO ANSWER: This scheduled visit resulted in a No Answer/No Show, see below for reason(s). TC was picked up by, what sounded like a child. She said was not home right now. Wanted to know if I wanted to give her the message. "no" I replied. But I didn't ask her to inform to CB and reschedule this tele-visit. She said she would. /janet/ NEFTALI PASTOR Nurse Practitioner Signed: 11/20/2020 15:23 Receipt Acknowledged By: 11/28/2020 17:06 /es/ Freddy SILVA MSA 11/20/2020 16:18 /janet/ EUGENE NEGRON RN for SILVANA Bolton AMINTA 11/20/2020 16:18 /janet/ EUGENE NEGRON RN 11/24/2020 ADDENDUM STATUS: COMPLETED CALL PLACED TO . RESCHEDULED. /es/ Freddy SILVA MSA Signed: 11/24/2020 09:33
--- OUTSIDE RECORDS SUMMARY | 2021-08-18 20:45 | External Medical Summary | Encounter Summary ---
:1965 Author Organization Department of [facility] Address [address] [place] [address] Care Team Providers Name Role Phone SANDRA GASCA Primary Care Provider Unavailable Selected Encounter This section includes the information on record at [place] for the Encounter. Date/Time Encounter Type Encounter Description Reason Provider Source Feb 10, 2021 10:00 Outpatient Encounter COMMUNITY CARE AM CONSULT IHE [...] 10:30 AM AMBULATORY - MEDICINE [facility] Apr 08, 2021 02:00 PM AMBULATORY - MEDICINE [facility] Apr 10, 2021 10:00 AM AMBULATORY - MEDICINE [facility] Apr 10, 2021 10:30 AM AMBULATORY - MEDICINE [facility] Apr 13, 2021 08:15 AM AMBULATORY - MEDICINE [facility] Apr 15, 2021 03:30 PM AMBULATORY - MEDICINE [facility] Apr 21, 2021 08:00 AM AMBULATORY - MEDICINE [facility] May 04, 2021 09:40 AM AMBUL[facility] - N[facility] Jun 24, 2021 01:00 PM AMBULATORY - NONE [facility] Encounter Notes: All associated encounter notes This section contains the clinical notes associated to the Encounter. Date/Time Encounter Note(s) Provider Source Feb 10, 2021 10:00 AM NONVA CONSULT: AIDEE DAVILA LOCAL TITLE: COMMUNITY CARE-CONSULT RESULT NOTE [facility] STANDARD TITLE: NONVA CONSULT DATE OF NOTE: FEB 10, 2021@10:00 ENTRY DATE: MAR 15, 2021@10:50:21 AUTHOR: AIDEE DAVILA EXP COSIGNER: URGENCY: STATUS: COMPLETED The following Non VA Care consult has be en completed. See scanned document for report. NON VA Care Consult Results Rehabilitation Comment: [facility] / PLAN OF CARE /janet/ AIDEE DAVILA MARKET DEVELOPMENT EXECUTIVE Signed: 03/15/2021 10:51
--- OUTSIDE RECORDS SUMMARY | 2021-08-18 20:46 | External Medical Summary | Encounter Summary ---
:1965 Author Organization Department of [facility] rs Address [address] [place] [id number] Care Team Providers Name Role Phone SANDRA GASCA Primary Care Provider Unavailable Selected Encounter This section includes the information on record at [place] for the Encounter. Date/Time Encounter Type Encounter Description Reason Provider Source Aug 27, 2020 12:00 Outpatient Encounter EVENT (HISTORICAL) AM IHE Encounter Template Text not used by [place] Plan of Treatment: Future Appointments (+ 6 months) and Future Tests (+/- 45 days) The Plan of Treatment section includes future care activities for the patient from all [place] treatmentfacilities. This section includes future appointments and future orders which are active, pending orscheduled.Future Appointments This section includes appointments that were scheduled to occur 6 months from the date of the Encounter, up to a maximum of 20 appointments. The data comes from all [place] treatment facilities. Appointment Date/Time Appointment Type Appointment Facili ty Name Sep 12, 2020 09:45 AM AMBULATORY - MEDICINE [facility] Oct 29, 2020 01:00 PM AMBULATORY - NONE [facility] Oct 29, 2020 01:30 PM AMBULATORY - NONE [facility] Nov 03, 2020 11:30 AM AMBULATORY - MEDICINE [facility] Nov 20, 2020 03:00 PM AMBULATORY - MEDICINE [facility] Nov 27, 2020 12:30 PM AMBULATORY - MEDICINE [facility] Feb 10, 2021 08:00 AM AMBULATORY - MEDICINE [facility] Feb 23, 2021 10:30 AM AMBULATORY - MEDICINE [facility] Lab Results: +/- 30 days of the encounter This section includes the Chemistry and Hematology Lab Results on record with [place] for the patient. Radiology Reports and Pathology Reports are provided separately, in subsequent sections.Lab Results This section contains the Chemistry/Hematology Results that were resulted 30 days before or 30 daysafter the date of the Encounter. Date/Time Source Result Type Result - Unit Interpretation Reference Range Comment Sep 12, 2020 09:49 [facility] TESTOSTERONE, TOTAL Speci men Type: SERUM AM Comment: TESTOS TERONE TOTAL INTERPRETATION: Testosterone peaks at approximately 7am and is at its minimum at approximately 8pm. Reference ranges as of 01/10/02: Male 2.8-8.0 ng/mL Female 0.1-0.8 ng/mL Ordering Provid er: NEFTALI PASTOR Report Released Date/Time: Aug 27, 2020 01:58 PM Reporting Lab: [facility] [place] [address] Performing Lab: [facility] [address] [facility] [address] TESTOSTERONE, TOTAL 2.6 ng/ml L 2.8-8 Sep 12, 2020 09:49 [facility] ANTI-NUCLEAR AB (BILL) Spe cimen Type: SERUM AM No comment enter ed. Ordering Provid er: NEFTALI PASTOR Report Released Date/Time: Aug 27, 2020 01:58 PM Reporting Lab: [facility] [address] [place] [address] Performing Lab: [facility] ; [place] [address] ANTI NUC AB TITER <1:80 <1:80 Sep 12, 2020 09:[address] [facility] IRON PANEL Specim en Type: BLOOD No comment enter ed. Ordering Provid er: NEFTALI PASTOR Report Released Date/Time: Aug 27, 2020 01:58 PM Reporting Lab: [facility] [place] [address] Performing Lab: [place] [place] [address] [place] [address] UIBC 316 ug/dL 112-346 IRON 67 ug/dL 38-153 TOTAL IRON BINDING CAPACITY 383 ug/dL 25 0-450 % SATURATION 17.5 % L 20-55 Sep 12, 2020 [facility] PSA WITH FREE PSA Specimen T ype: SERUM 09:49 AM REFLEX Comment: High d oses of Biotin supplements (>5 mg/day) may falsely increase Vitamin B-12, Vitamin D (25OH), Free T4, and Folate results. Test specimens should be collected at least 8 hrs after last i ngestion of high dose biotin. High doses of Biotin supplements (>5 mg/day) may falsely decrease Total PSA, Free PSA, Pro-BNP, AFP, C-Peptide and Ferritin results. Test specimens should be collected a t least 8 hours after the last ingestion of high dose biotin. Significantly decreased CRP values may be obtained from samples taken from patients who have been treated with carboxypenicillines. LDL Dire ct Adult Referen ce Range: Optimal <100 mg/dL Near optimal/above optimal 100- 129 mg/dL Borderline high 130-159 mg/dL High 160-189 mg/dL Very High 190 mg/dL Note that non-fasting results may be slightly lower than fasting results. Ordering Provid er: NEFTALI PASTOR Report Released Date/Time: Aug 27, 2020 01:58 PM Reporting Lab: [facility] [place] [address] [place] [address] Performing Lab: [facility] [address] [place] [address] PROSTATE SPECIFIC ANTIGEN 2.43 ng/ml 0-4 .00 Sep 12, 2020 09:[address] [facility] RHEUMATOID FACTOR Spec imen Type: SERUM No comment enter ed. Ordering Provid er: NEFTALI PASTOR Report Released Date/Time: Aug 27, 2020 01:58 PM Reporting Lab: [facility] [place] [address] Performing Lab: [facility] [place] [address] RHEUMATOID FACTOR <14 IU/mL 0-13 Sep 12, 2020 [facility] THYROID STIMULATING Specimen Type: SERUM 09:49 AM HORMONE Comment: High d oses of Biotin supplements (>5 mg/day) may falsely increase Vitamin B-12, Vitamin D (25OH), Free T4, and Folate results. Test specimens should be collected at least 8 hrs after last i ngestion of high dose biotin. High doses of Biotin supplements (>5 mg/day) may falsely decrease Total PSA, Free PSA, Pro-BNP, AFP, C-Peptide and Ferritin results. Test specimens should be collected a t least 8 hours after the last ingestion of high dose biotin. Significantly decreased CRP values may be obtained from samples taken from patients who have been treated with carboxypenicillines. LDL Dire ct Adult Referen ce Range: Optimal <100 mg/dL Near optimal/above optimal 100- 129 mg/dL Borderline high 130-159 mg/dL High 160-189 mg/dL Very High 190 mg/dL Note that non-fasting results may be slightly lower than fasting results. Ordering Provid er: NEFTALI PASTOR Report Released Date/Time: Aug 27, 2020 01:58 PM Reporting Lab: [facility] [address] [place] [address] Performing Lab: [facility] [place] [address] THYROID STIMULATING HORMONE 2.19 IU/mL 0.300-4.25 Sep 12, 2020 09:[address] [facility] URINALYSIS (IRIS) Spec imen Type: URINE No comment enter ed. Ordering Provid er: NEFTALI PASTOR Report Released Date/Time: Aug 27, 2020 01:58 PM Reporting Lab: [facility] [address] [place] [address] Performing Lab: [facility] [place] [address] URINE COLOR Yellow SPECIFIC GRAVITY 1.022 1.003-1.030 URINE BILIRUBIN NEGATIVE Neg URINE KETONES NEGATIVE mg/dL Neg URINE GLUCOSE NEGATIVE mg/dL Neg URINE PROTEIN 10 mg/dL Neg URINE PH 5.5 5.0-8.0 URINE WBC/HPF 1 /HPF 0-5 URINE MUCUS RARE URINE RBC/HPF 1 /HPF 0-3 APPEARANCE CLEAR URINE BLOOD NEGATIVE Neg NITRITE, URINE NEGATIVE Neg LEUKOCYTE ESTERASE, URINE NEGATIVE NEGA TIVE URINE UROBILINOGEN (IRIS) NORMAL mg/dL < 2 Sep 12, 2020 09:[address] [facility] URIC ACID Specim en Type: SERUM Comment: High d oses of Biotin supplements (>5 mg/day) may falsely increase Vitamin B-12, Vitamin D (25OH), Free T4, and Folate results. Test specimens should be collected at least 8 hrs after last i ngestion of high dose biotin. High doses of Biotin supplements (>5 mg/day) may falsely decrease Total PSA, Free PSA, Pro-BNP, AFP, C-Peptide and Ferritin results. Test specimens should be collected a t least 8 hours after the last ingestion of high dose biotin. Significantly decreased CRP values may be obtained from samples taken from patients who have been treated with carboxypenicillines. LDL Dire ct Adult Referen ce Range: Optimal <100 mg/dL Near optimal/above optimal 100- 129 mg/dL Borderline high 130-159 mg/dL High 160-189 mg/dL Very High 190 mg/dL Note that non-fasting results may be slightly lower than fasting results. Ordering Provid er: NEFTALI PASTOR Report Released Date/Time: Aug 27, 2020 01:58 PM Reporting Lab: [facility] [address] [place] [address] Performing Lab: [facility] [address] [place] [address] URIC ACID 5.2 mg/dL 3.5-8.5 Sep 12, 2020 [facility] VITAMIN D (25-HYDROXY) Speci men Type: SERUM 09:49 AM Comment: High d oses of Biotin supplements (>5 mg/day) may falsely increase Vitamin B-12, Vitamin D (25OH), Free T4, and Folate results. Test specimens should be collected at least 8 hrs after last i ngestion of high dose biotin. High doses of Biotin supplements (>5 mg/day) may falsely decrease Total PSA, Free PSA, Pro-BNP, AFP, C-Peptide and Ferritin results. Test specimens should be collected a t least 8 hours after the last ingestion of high dose biotin. Significantly decreased CRP values may be obtained from samples taken from patients who have been treated with carboxypenicillines. LDL Dire ct Adult Referen ce Range: Optimal <100 mg/dL Near optimal/above optimal 100- 129 mg/dL Borderline high 130-159 mg/dL High 160-189 mg/dL Very High 190 mg/dL Note that non-fasting results may be slightly lower than fasting results. Ordering Provid er: NEFTALI PASTOR Report Released Date/Time: Aug 27, 2020 01:58 PM Reporting Lab: [facility] [address] [place] [address] Performing Lab: [facility] [place] [address] [address] [place] [address] VITAMIN D (25-HYDROXY) 65.8 ng/mL 30.0-1 00 Sep 12, 2020 [facility] C-REACTIVE PROTEIN Specimen Type: SERUM 09:49 AM Comment: High d oses of Biotin supplements (>5 mg/day) may falsely increase Vitamin B-12, Vitamin D (25OH), Free T4, and Folate results. Test specimens should be collected at least 8 hrs after last i ngestion of high dose biotin. High doses of Biotin supplements (>5 mg/day) may falsely decrease Total PSA, Free PSA, Pro-BNP, AFP, C-Peptide and Ferritin results. Test specimens should be collected a t least 8 hours after the last ingestion of high dose biotin. Significantly decreased CRP values may be obtained from samples taken from patients who have been treated with carboxypenicillines. LDL Dire ct Adult Referen ce Range: Optimal <100 mg/dL Near optimal/above optimal 100- 129 mg/dL Borderline high 130-159 mg/dL High 160-189 mg/dL Very High 190 mg/dL Note that non-fasting results may be slightl y lower than fas ting results. CRP was incorrectly reported in mg/dL Results have been converted to mg/L [facility] 06/30/21 C-REACTIVE PROTEIN reported incorrectly as 0.16 by [[id number]]. Changed to 0.00 on Jun 30, 2021@ 12:29 by [[id number]]. CRP incorrectly reported in mg/dL Results were converted to mg/L Disregard amendments made on 06/30/21 ([facility] 07/01/21) C-REACTIVE PROTEIN reported incorrectly a s 0.00 by [[id number]]. Changed to 1.6 on Jul 01, 2021@12:47 by [[id number]]. Ordering Provid er: NEFTALI PASTOR Report Released Date/Time: Aug 27, 2020 01:58 PM Reporting Lab: [facility] [place] [address] Performing Lab: [facility] [place] [address] C-REACTIVE PROTEIN 1.6 mg/L 0-4.99 Sep 12, 2020 09:49 [facility] CBC & MORPHOLOGY (WITH Sp ecimen Type: BLOOD AM DIFF) No comment enter ed. Ordering Provid er: NEFTALI PASTOR Report Released Date/Time: Aug 27, 2020 01:58 PM Reporting Lab: [facility] [address] [place] [address] Performing Lab: [facility] [place] [address] WBC (TOTAL WBC COUNT) 10.7 K/L H 3.0-10. 6 RBC 5.79 M/L H 3.86-5.70 HEMOGLOBIN 17.4 g/dL H 11.8-17.1 HCT 52.3 % H 36-51 MCV 90.3 fL 81-102 MCH 30.1 pg 27-31 MCHC 33.3 g/dL 32-36 PLT 228 K/L 150-400 RDW 12.9 % 11.2-16.2 NEUT % 68.4 % 44-74 LYMP % 20.5 % 15-42 MONO % 6.9 % 4-13 EOS % 2.8 % 0-7 BASO % 0.6 % 0-2 NEUTROPHILS, ABSOLUTE 7.3 K/L H 1.2-7.0 LYMPHOCYTES, ABSOLUTE 2.2 K/L 0.6-3.4 MONOCYTES, ABSOLUTE 0.7 K/L 0.2-1.0 EOSINOPHILS, ABSOLUTE 0.3 K/L 0.0-0.5 BASOPHILS, ABSOLUTE 0.1 K/L 0.0-0.2 IMMATURE GRANULOCYTE % 0.8 % 0-0.9 IMMATURE GRANULOCYTES, ABSOLUTE 0.08 K/L H 0-0.07 Sep 12, 2020 09:[address] [facility] HEMOGLOBIN A1C Specim en Type: BLOOD Comment: Target A1C values should be individualized. Better understanding of A1C test result accuracy is essential if clinicians are to interpret results for Veterans, and discuss treatment options thr ough the process of Shared Decision Making. For questions regarding the performance characteristics of this test, providers should contact the main laboratory. Patients should contact their healthcare provider. Ordering Provid er: NEFTALI PASTOR Report Released Date/Time: Aug 27, 2020 01:58 PM Reporting Lab: [facility] [address] [place] [address] Performing Lab: [facility] [address] [place] [address] HEMOGLOBIN A1C 10.4 % H 0-5.6 Sep 12, 2020 [facility] COMPREHENSIVE METABOLIC Spec imen Type: SERUM 09:49 AM PANEL Comment: High d oses of Biotin supplements (>5 mg/day) may falsely increase Vitamin B-12, Vitamin D (25OH), Free T4, and Folate results. Test specimens should be collected at least 8 hrs after last i ngestion of high dose biotin. High doses of Biotin supplements (>5 mg/day) may falsely decrease Total PSA, Free PSA, Pro-BNP, AFP, C-Peptide and Ferritin results. Test specimens should be collected a t least 8 hours after the last ingestion of high dose biotin. Significantly decreased CRP values may be obtained from samples taken from patients who have been treated with carboxypenicillines. LDL Dire ct Adult Referen ce Range: Optimal <100 mg/dL Near optimal/above optimal 100- 129 mg/dL Borderline high 130-159 mg/dL High 160-189 mg/dL Very High 190 mg/dL Note that non-fasting results may be slightly lower than fasting results. Ordering Provid er: NEFTALI PASTOR Report Released Date/Time: Aug 27, 2020 01:58 PM Reporting Lab: [facility] [place] [address] Performing Lab: [facility] [place] [address] GLUCOSE 181 mg/dL H 71-109 BUN/UREA (BLOOD UREA NITROGEN) 16 mg/dL 7-23 CREATININE, SERUM 1.2 mg/dL .7-1.2 SODIUM 137 mmol/L 131-142 POTASSIUM 4.3 mmol/L 3.6-5.4 CHLORIDE 96 mmol/L 95-108 CARBON DIOXIDE 30 mmol/L 21-32 CALCIUM 10.0 mg/dL 8.4-10.5 TOTAL PROTEIN 7.7 g/dL 5.8-7.9 ALBUMIN 5.0 g/dL 3.8-5.2 GLOBULIN 2.7 g/dL 1.5-3.2 AST/SGOT 15 U/L 14-44 ALT/SGPT 23 U/L 9-57 ALKALINE PHOSPHATASE 117 U/L 45-129 TOTAL BILIRUBIN 0.5 mg/dL 0.2-1.3 GFR ESTIMATION 62.6 mL/min/BSA >60 ANION GAP 15 mmol/L 7-21 GFR ESTIMATION (CKD-EPI) 67 mL/Min/BSA L > 90 Sep 12, 2020 09:49 [facility] LIPID PANEL Specimen Type: SERUM AM Comment: High d oses of Biotin supplements (>5 mg/day) may falsely increase Vitamin B-12, Vitamin D (25OH), Free T4, and Folate results. Test specimens should be collected at least 8 hrs after last i ngestion of high dose biotin. High doses of Biotin supplements (>5 mg/day) may falsely decrease Total PSA, Free PSA, Pro-BNP, AFP, C-Peptide and Ferritin results. Test specimens should be collected a t least 8 hours after the last ingestion of high dose biotin. Significantly decreased CRP values may be obtained from samples taken from patients who have been treated with carboxypenicillines. LDL Dire ct Adult Referen ce Range: Optimal <100 mg/dL Near optimal/above optimal 100- 129 mg/dL Borderline high 130-159 mg/dL High 160-189 mg/dL Very High 190 mg/dL Note that non-fasting results may be slightly lower than fasting results. Ordering Provid er: NEFTALI PASTOR Report Released Date/Time: Aug 27, 2020 01:58 PM Reporting Lab: [facility] [address] [place] [address] Performing Lab: [facility] Rivera [address] [place] [address] CHOLESTEROL 237 mg/dL H <199 TRIGLYCERIDE 248 mg/dL H <149 HDL CHOLESTEROL 42 mg/dL >40 NON-HDL CHOLESTEROL 195 mg/dL <130 LDL, DIRECT 167 mg/dL H 0-129 Sep 12, 2020 09:[address] [facility] VITAMIN B-12 Specim en Type: SERUM Comment: High d oses of Biotin supplements (>5 mg/day) may falsely increase Vitamin B-12, Vitamin D (25OH), Free T4, and Folate results. Test specimens should be collected at least 8 hrs after last ingestion of high dose biotin. Ordering Provid er: NEFTALI PASTOR Report Released Date/Time: Aug 27, 2020 01:58 PM Reporting Lab: [facility] [address] [place] [address] Performing Lab: [facility] [address] [place] [address] VITAMIN B-12 479 pg/mL 232-1245 Aug 22, 2020 11:18 [facility] VITAMIN D (25-HYDROXY) Sp ecimen Type: SERUM AM Comment: High d oses of Biotin supplements (>5 mg/day) may falsely increase Vitamin B-12, Vitamin D (25OH), Free T4, and Folate results. Test specimens should be collected at least 8 hrs after last i ngestion of high dose biotin. LDL Direct Adult Reference Range: Optimal <100 mg/dL Near optimal/above optimal 100-129 mg/dL Borderline high 130-159 mg/dL High 160-189 mg/dL Very High 190 mg/dL Note t hat non-fasting results may be slightly lower than fasting results. Ordering Provid er: NEFTALI APSTOR Report Released Date/Time: Aug 20, 2020 05:09 PM Reporting Lab: [facility] [place] [address] [place] [address] Performing Lab: [place] [address] [address] [place] [address] VITAMIN D (25-HYDROXY) 61.9 ng/mL 30.0-1 00 Aug 22, 2020 [facility] COMPREHENSIVE METABOLIC Spec imen Type: SERUM 11:18 AM PANEL Comment: High d oses of Biotin supplements (>5 mg/day) may falsely increase Vitamin B-12, Vitamin D (25OH), Free T4, and Folate results. Test specimens should be collected at least 8 hrs after last i ngestion of high dose biotin. LDL Direct Adult Reference Range: Optimal <100 mg/dL Near optimal/above optimal 100-129 mg/dL Borderline high 130-159 mg/dL High 160-189 mg/dL Very High 190 mg/dL Note t hat non-fasting results may be slightly lower than fasting results. Ordering Provid er: NEFTALI PASTOR Report Released Date/Time: Aug 20, 2020 05:09 PM Reporting Lab: [place] [address] [place] [address] Performing Lab: [place] [address] [address] [place] [address] GLUCOSE 233 mg/dL H 71-109 BUN/UREA (BLOOD UREA NITROGEN) 16 mg/dL 7-23 CREATININE, SERUM 1.1 mg/dL .7-1.2 SODIUM 138 mmol/L 131-142 POTASSIUM 5.6 mmol/L H 3.6-5.4 CHLORIDE 100 mmol/L 95-108 CARBON DIOXIDE 28 mmol/L 21-32 CALCIUM 9.7 mg/dL 8.4-10.5 TOTAL PROTEIN 6.9 g/dL 5.8-7.9 ALBUMIN 4.5 g/dL 3.8-5.2 GLOBULIN 2.4 g/dL 1.5-3.2 AST/SGOT 16 U/L 14-44 ALT/SGPT 28 U/L 9-57 ALKALINE PHOSPHATASE 105 U/L 45-129 TOTAL BILIRUBIN 0.5 mg/dL 0.2-1.3 GFR ESTIMATION 69.2 mL/min/BSA >60 ANION GAP 16 mmol/L 7-21 GFR ESTIMATION (CKD-EPI) 75 mL/Min/BSA L > 90 Aug 22, 2020 11:[address] [facility] LIPID PANEL Specim en Type: SERUM Comment: High d oses of Biotin supplements (>5 mg/day) may falsely increase Vitamin B-12, Vitamin D (25OH), Free T4, and Folate results. Test specimens should be collected at least 8 hrs after last i ngestion of high dose biotin. LDL Direct Adult Reference Range: Optimal <100 mg/dL Near optimal/above optimal 100-129 mg/dL Borderline high 130-159 mg/dL High 160-189 mg/dL Very High 190 mg/dL Note t hat non-fasting results may be slightly lower than fasting results. Ordering Provid er: NEFTALI PASTOR Report Released Date/Time: Aug 20, 2020 05:09 PM Reporting Lab: [facility] [place] [address] [address] [place] [address] Performing Lab: [facility] [place] [address] [address] [place] [address] CHOLESTEROL 226 mg/dL H <199 TRIGLYCERIDE 214 mg/dL H <149 HDL CHOLESTEROL 38 mg/dL L >40 NON-HDL CHOLESTEROL 188 mg/dL <130 LDL, DIRECT 163 mg/dL H 0-129 Aug 22, 2020 11:[address] [facility] VITAMIN B-12 Specim en Type: SERUM Comment: High d oses of Biotin supplements (>5 mg/day) may falsely increase Vitamin B-12, Vitamin D (25OH), Free T4, and Folate results. Test specimens should be collected at least 8 hrs after last ingestion of high dose biotin. Ordering Provid er: NEFTALI PASTOR Report Released Date/Time: Aug 20, 2020 05:09 PM Reporting Lab: [facility] [place] [address] [address] [place] [address] Performing Lab: [place] [address] [address] [place] [address] VITAMIN B-12 443 pg/mL 232-1245 Aug 22, 2020 11:[address] [facility] HEMOGLOBIN A1C Specim en Type: BLOOD Comment: Target A1C values should be individualized. Better understanding of A1C test result accuracy is essential if clinicians are to interpret results for Veterans, and discuss treatment options thr ough the process of Shared Decision Making. For questions regarding the performance characteristics of this test, providers should contact the main laboratory. Patients should contact their healthcare provider. Ordering Provid er: NEFTALI PASTOR Report Released Date/Time: Aug 20, 2020 05:09 PM Reporting Lab: [place] [address] [address] [place] [address] Performing Lab: [place] [address] [address] [place] [address] HEMOGLOBIN A1C 10.0 % H 0-5.6 Aug 22, 2020 [facility] MICROALBUMIN/CREATININE PANEL Specimen Type: URINE 11:18 AM Comment: KELVIN BEAR, URINE reference ranges apply to first morning void. Ordering Provid er: NEFTALI PASTOR Report Released Date/Time: Aug 20, 2020 05:09 PM Reporting Lab: [place] [address] [address] [place] [address] Performing Lab: [facility] [place] [address] CREATININE, URINE 89.2 mg/dL 40-278 MICROALBUMIN (QUANT) 4.1 mg/dL MICROALBUMIN/CREATININE RATIO 46.0 mg/gCR H 0-30 Aug 22, 2020 11:18 [facility] THYROID STIMULATING Speci men Type: SERUM AM HORMONE Comment: High d oses of Biotin supplements (>5 mg/day) may falsely increase Vitamin B-12, Vitamin D (25OH), Free T4, and Folate results. Test specimens should be collected at least 8 hrs after last i ngestion of high dose biotin. LDL Direct Adult Reference Range: Optimal <100 mg/dL Near optimal/above optimal 100-129 mg/dL Borderline high 130-159 mg/dL High 160-189 mg/dL Very High 190 mg/dL Note t hat non-fasting results may be slightly lower than fasting results. Ordering Provid er: NEFTALI PASTOR Report Released Date/Time: Aug 20, 2020 05:09 PM Reporting Lab: [facility] [place] [address] Performing Lab: [facility] [address] [place] [address] THYROID STIMULATING HORMONE 0.856 IU/mL 0.300-4.25 Aug 22, 2020 11:18 [facility] CBC WITH Specim en Type: BLOOD AM DIFF No comment enter ed. Ordering Provid er: NEFTALI PASTOR Report Released Date/Time: Aug 25, 2020 07:25 AM Reporting Lab: [facility] [address] [place] [address] Performing Lab: [facility]. [facility] ; [place] [address] WBC, IP 8.7 K/uL 4.5-11.0 RBC, IP 5.42 M/uL 4.3-5.7 HEMOGLOBIN, IP 16.8 g/dL 13.5-18 HEMATOCRIT, IP 49.5 % 41-50 MCV, IP 91.4 fL 81-99 RDW, IP 13.7 % 10.5-15.0 MCH, IP 31 pg 27-33 MCHC, IP 34 g/dL 30-36 PLATELET COUNT, IP 178 K/uL 140-440 NEUTROPHIL %, IP 67.0 % 39-80 LYMPHOCYTE %, IP 22.1 % L 24-44 MONOCYTE %, IP 6.8 % 0-12 EOSINOPHIL %, IP 3.2 % 0-6 BASOPHIL %, IP 0.9 % 0-2 BAND %, IP 0 % 0-7 OTHER WBC %, IP 0 % 0 NEUT, ABSOLUTE IP 5.83 K/L 2.0-6.9 BAND, ABSOLUTE IP 0.00 K/L 0.0-0.6 LYMPH, ABSOLUTE IP 1.92 K/L 0.6-3.4 MONO, ABSOLUTE IP 0.59 K/L 0.0-1.1 EOS, ABSOLUTE IP 0.28 K/L 0.0-0.7 OTHER, ABSOLUTE IP 0.00 K/L <0.0 BASO, ABSOLUTE IP 0.08 K/L 0.0-0.2 Aug 22, 2020 11:18 [facility] URINALYSIS Spec imen Type: URINE AM No comment enter ed. Ordering Provid er: NEFTALI PASTOR Report Released Date/Time: Aug 25, 2020 07:25 AM Reporting Lab: [facility] [address] [place] [address] Performing Lab: LU[facility] Rivera [facility] ; [place] [address] COLLECTION TYPE, IP (UA) CLEAN CATCH COLOR, IP (UA) YELLOW pH, IP (UA) 6 5-9 PROTEIN, IP (UA) NEGATIVE mg/dL Negative GLUCOSE, IP (UA) SMALL Normal KETONE, IP (UA) NEGATIVE Negative BILIRUBIN, IP (UA) NEGATIVE Negative CASTS, IP (UA) NEGATIVE /lpf 0-1+ Hyalin e WBC'S, IP (UA) 2 /hpf 0-4 RBC'S, IP (UA) 0 /hpf 0-4 CLARITY, IP (UA) CLEAR SPECIFIC GRAVITY, IP (UA) 1.013 1.00 5-1.030 BLOOD/HGB, IP (UA) NEGATIVE Negative NITRITE, IP (UA) NEGATIVE Negative UROBILINOGEN, IP (UA) NORMAL mg/dL Barb l LEUK ESTERASE, IP (UA) NEGATIVE Negativ e EPITHELIAL, IP (UA) NEGATIVE /lpf 0-1+ S quamous CRYSTALS, IP (UA) NEGATIVE /hpf 0-1+ BACTERIA, IP (UA) NEGATIVE /hpf Negative
--- OUTSIDE RECORDS SUMMARY | 2021-08-18 20:46 | External Medical Summary | Encounter Summary ---
:1965 Author Organization [facility] Address [address] [place] [id number] Care Team Providers Name Role Phone SANDRA GASCA Primary Care Provider Unavailable Selected Encounter This section includes the information on record at [place] for the Encounter. Date/Time Encounter Type Encounter Description Reason Provider Source Oct 31, 2020 09:26 Outpatient Encounter PRIMARY CARE/MEDICINE AM [facility] Encounter Template Text not used by [place] Plan of Treatment: Future Appointments (+ 6 months) and Future Tests (+/- 45 days) The Plan of Treatment section includes future care activities for the patient from all [place] treatmentfacilities. This section includes future appointments and future orders which are active, pending orscheduled.Future Appointments This section includes appointments that were scheduled to occur 6 months from the date of the Encounter, up to a maximum of 20 appointments. The data comes from all [place] treatment facilities. Appointment Date/Time Appointment Type Appointment Facili ty Name Nov 03, 2020 11:30 AM AMBULATORY - MEDICINE [facility] Nov 20, 2020 03:00 PM AMBULATORY - MEDICINE [facility] Nov 27, 2020 12:30 PM AMBULATORY - MEDICINE [facility] Feb 10, 2021 08:00 AM AMBULATORY - MEDICINE [facility] Feb 23, 2021 10:30 AM AMBULATORY - MEDICINE [facility] Apr 08, 2021 02:00 PM AMBULATORY - MEDICINE [facility] Apr 10, 2021 10:00 AM AMBULATORY - MEDICINE [facility] Apr 10, 2021 10:30 AM AMBULATORY - MEDICINE [facility] Apr 13, 2021 08:15 AM AMBULATORY - MEDICINE [facility] Apr 15, 2021 03:30 PM AMBULATORY - MEDICINE [facility] Apr 21, 2021 08:00 AM AMBULATORY - MEDICINE [facility] Active, Pending, and Scheduled Orders This section includes a listing of several types of active, pending, and scheduled orders, including clinic medications orders, diagnostic test orders, procedure orders and consult orders; where the start date of the order is 45 days before the date of the Encounter or 45 days after the date of the Encounter. The data comes from all [facility]. Test Date/Time Test Type Test Details Facility Name December 14, 2020 10:09 AM Consult Order [facility] Cons Clinical Researcher's Choice Radiology Reports: +/- 30 days of [...] the Encounter. The data comes from all [facility]. Date/Time Radiology Report Provider Source Oct 29, 2020 01:28 PM HIPS BILAT 5V: LUKE Ailyn LISETTE GAO [phone] -[birth year]OV [birth year], [phone] M [facility] Exm Date: OCT 29, 2020@13:28 Req Phys: SHARMIN SUH Loc: OUTSIDE [facility] RAD -X (Req'g Loc) Img Loc: [facility] 86 Service: Unknown (Case 86 COMPLETE) HIPS BILAT 5V (RAD Detailed) CPT:17091 Reason for Study: OUTSIDE STUDY IMPORTED ARB Clinical History: OUTSIDE STUDY IMPORTED ARB Report Status: Electronically Filed Date Report ed: Report: Impression: OUTSIDE STUDY IMPORTED Primary Diagnostic Code: VERIFIED BY: / *ELECTRONICALLY FILED* Oct 29, 2020 01:24 PM SPINE LUMBOSACRAL MIN 2 VIEWS: LISETTE WHATLEY ZAYDA [id number] -NOV 16 4 M [facility] Exm Date: OCT 29, 2020@13:24 Req Phys: SHARMIN SUH Loc: OUTSIDE [facility] RAD -X (Req'g Loc) Img Loc: [facility] 86 Service: Unknown (Case 87 COMPLETE) SPINE LUMBOSACRAL MIN 2 VIEWS (RAD Detailed) CPT:27715 Reason for Study: OUTSIDE STUDY IMPORTED ARB Clinical History: OUTSIDE STUDY IMPORTED ARB Report Status: Electronically Filed Date Report ed: Report: Impression: OUTSIDE STUDY IMPORTED Primary Diagnostic Code: VERIFIED BY: / *ELECTRONICALLY FILED* Oct 29, 2020 01:18 PM HAND LEFT: LISETTE ESTEBAN ZAYDA [phone] -NOV 16 4 M [facility] Exm Date: OCT 29, 2020@13:18 Req Phys: SHARMIN SUH Loc: OUTSIDE [facility] RAD -X (Req'g Loc) Img Loc: [place] [id number] Service: Unknown (Case 88 COMPLETE) HAND LEFT (RAD Detailed) CPT: 82806 CPT Modifiers : LT LEFT SIDE Reason for Study: OUTSIDE STUDY IMPORTED ARB Clinical History: OUTSIDE STUDY IMPORTED ARB Report Status: Electronically Filed Date Report ed: Report: Impression: OUTSIDE STUDY IMPORTED Primary Diagnostic Code: VERIFIED BY: / *ELECTRONICALLY FILED* Oct 29, 2020 01:17 PM HAND RIGHT: LISETTE ESTEBAN ZAYDA [phone] -NOV 16 4 M [facility] Exm Date: OCT 29, 2020@13:17 Req Phys: SHARMIN SUH Loc: OUTSIDE [facility] RAD -X (Req'g Loc) Img Loc: [facility] 86 Service: Unknown (Case 89 COMPLETE) HAND RIGHT (RAD Detailed) CPT :02076 CPT Modifiers : RT RIGHT SIDE Reason for Study: OUTSIDE STUDY IMPORTED ARB Clinical History: OUTSIDE STUDY IMPORTED ARB Report Status: Electronically Filed Date Report ed: Report: Impression: OUTSIDE STUDY IMPORTED Primary Diagnostic Code: VERIFIED BY: / *ELECTRONICALLY FILED* Oct 29, 2020 01:07 PM SPINE CERVICAL MIN 4 VIEWS: LISETTE WHATLEY ZAYDA [id number] -NOV 16 4 M [facility] Exm Date: OCT 29, 2020@13:07 Req Phys: SHARMIN SUH Loc: OUTSIDE RAD -X (Req'g Loc) Img Loc: [facility]ILDING Service: Unknown (Case 120 COMPLETE) SPINE CERVICAL MIN 4 VIEWS ( RAD Detailed) CPT:94775 Reason for Study: OUTSIDE STUDY IMPORTED ARB Clinical History: OUTSIDE STUDY IMPORTED ARB Report Status: Electronically Filed Date Report ed: Report: Impression: OUTSIDE STUDY IMPORTED Primary Diagnostic Code: VERIFIED BY: / *ELECTRONICALLY FILED* Oct 29, 2020 12:[address] HEAD WITHOUT CONTRAST: LISETTE WHATLEY ZAYDA [phone] -NOV 16 4 M [facility] Exm Date: OCT 29, 2020@12:45 Req Phys: NEFTALI PASTOR Loc: OUTSIDE [facility] CT- X (Req'g Loc) Img Loc: OUTSIDE [facility] Service: Unknown (Case 146 COMPLETE) CT HEAD WITHOUT CONTRAST (CT Detailed) CPT:72806 Reason for Study: Outside Study Imported ART Clinical History: Outside Study Imported ART Report Status: Electronically Filed Date Report ed: Report: Impression: OUTSIDE STUDY IMPORTED VERIFIED BY: / *ELECTRONICALLY FILED* Encounter Notes: All associated encounter notes This section contains the clinical notes associated to the Encounter. Date/Time Encounter Note(s) Provider Source Oct 31, 2020 09:26 AM SCANNED NONVA NOTE: [facility] T[facility]: NON-VA IMAGING NOTE STANDARD TITLE: SCANNED NONVA NOTE DATE OF NOTE: OCT 31, 2020@09:26 ENTRY DATE: OCT 31, 2020@09:26:50 AUTHOR: SILVANA LEMOS EXP COSIGNER: URGENCY: STATUS: COMPLETED NON-VA IMAGING NOTE Has ADDENDA DRAD.LUMBAR SPINE [address] SPINE COMPLETE DRAD.HAND- BILATERAL CT.BRAIN CT W/O CONTRAST [facility] 10.29.2020 /chelsea LEMOS LPN Signed: 10/31/2020 09:36 10/31/2020 ADDENDUM STATUS: COMPLETED Forwarding to [facility] to call Patient and schedule t nunu appointment with PCP. /chelsea LEMOS LPN Signed: 10/31/2020 09:37 Receipt Acknowledged By: 10/31/2020 11:07 /es/ Freddy SILVA MSA 10/31/2020 ADDENDUM STATUS: COMPLETED APPOINTMENT SCHEDULED. /janet/ Freddy SILVA MSA Signed: 10/31/2020 11:07 11/03/2020 ADDENDUM STATUS: COMPLETED IMAGING/TESTING PERFORMED: C-spine xrays ORDERING PROVIDER: MATTHEW Castañeda DOS: 10.29.2020 Facility: [X] - [facility] ([place], [place]) [ ] - [facility] ([facility]) [ ] - [facility] ([place], [place]) [ ] - [facility] ([place], [place]) [ ] - [facility] ([place], [place]) [ ] - [facility] ([place], [place]) [ ] - [facility] ([place], [place]) [ ] - Other Facility Finding(s): 5 views of the cervical spine were performed the re is desiccation of C5-6 & C6-7 with osteophytosis and kyphosis in this reg ion. No fractures or subluxations. 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 IMAGING/TESTING PERFORMED: Lumbar spine xrays ORDERING PROVIDER: MATTHEW Castañeda DOS: 10.29.2020 Facility: [X] - [facility] ([place], [place]) [ ] - [facility] ([facility]) [ ] - [facility] ([place], [place]) [ ] - [facility] ([place], [place]) [ ] - [facility] ([place], [place]) [ ] - [facility] ([place], [place]) [ ] - [facility] ([place], [place]) [ ] - Other Facility Finding(s): 2 views of the lumbar spine were performed there are small anterior osteophytes and mild facet arthrosis without fractur es or subluxations. Exam is similar to an 03.23.2018 imaging. Impression(s): Mild generative osteoarthritis. IMAGING/TESTING PERFORMED: Bilateral hand xrays ORDERING PROVIDER: MATTHEW Castañeda DOS: 10.29.2020 Facility: [X] - [facility] ([place], [place]) [ ] - [facility] ([facility]) [ ] - [facility] ([place], [place]) [ ] - [facility] ([place], [place]) [ ] - [facility] ([place], [place]) [ ] - [facility] ([place], [place]) [ ] - [facility] ([place], [place]) [ ] - Other Facility Finding(s): Right hand findings: 3 views of the right hand were performed. A smal l cyst was identified in the lunate bone. No fractures or subluxations and no substantial degenerative osteoarthrosis. I see a small lytic lesion in th e distal third metacarpal and proximal phalanx of the right second digit. Left hand findings: 3 views of left hand were performed. I see no fr actures or dislocations. No obvious lytic lesions. Impression(s): Several bony erosions of the right hand which ca n suggest for inflammatory synovitis such as rheumatoid arthropathy. No abn ormalities of the left hand. IMAGING/TESTING PERFORMED: Brain CT w/o contrast . ORDERING PROVIDER: MATTHEW Castañeda DOS: 10.29.2020 Facility: [X] - [facility] ([place], [place]) [ ] - [facility] ([facility]) [ ] - [facility] ([place], [place]) [ ] - [facility] ([place], [place]) [ ] - [facility] ([place], [place]) [ ] - [facility] ([place], [place]) [ ] - [facility] ([place], [place]) [ ] - Other Facility Finding(s): Unenhanced images were obtained of the b rain. Brain parenchyma, cerebral sulci and ventricular system are n ormal. The visualized paranasal sinuses and mastoid air cells are clear. Impression(s): Negative exam. /janet/ NEFTALI PASTRO Nurse Practitioner Signed: 11/03/2020 07:32
--- OUTSIDE RECORDS SUMMARY | 2021-08-18 20:46 | External Medical Summary ---
:1965 Author Organization Department of [facility] rs Address [address] [place] [address] Care Team Providers Name Role Phone SANDRA GASCA Primary Care Provider Unavailable Selected Encounter This section includes the information on record at [place] for the Encounter. Date/Time Encounter Type Encounter Reason Provider Source Description Aug 27, 2020 OFFICE O/P EST PRIMARY ICD-10-CM NEFTALI PASTOR 11:30 AM MOD 30-39 MIN CARE/MEDICINE Z00.00 Encntr for general adult medical exam w/o abnormal findings with Provider Comments: Well adult ([facility] [id number]) [facility] Encounter Template Text not used by [place] Assessments - Encounter Diagnoses This section includes the primary and secondary diagnoses documented for the Encounter. Date/Time Primary/Secondary Diagnosis Name Provider Source Diagnosis Aug 27, 2020 PRIMARY Encntr for general [facility]ILVANA LEMOS [facility] 01:[facility] PM adult medical exam CLINIC w/o abnormal findings Aug 27, 2020 SECONDARY Dorsalgia, SILVANA LEMOS [facility] 01:59 PM unspecified CLINIC Aug 27, 2020 SECONDARY Essential (primary) [place]ILVANA LEMOS [place] 01:[facility] PM hypertension CLINIC Aug 27, 2020 SECONDARY Headache, SILVANA LEMOS [facility] 01:59 PM unspecified CLINIC Aug 27, 2020 SECONDARY Low back pain SILVANA LEMOS [facility] 01:59 PM CLINIC Aug 27, 2020 SECONDARY Pain in unspecified [facility]ILVANA LEMOS [place] [facility] 01:[facility] PM hand CLINIC Aug 27, 2020 SECONDARY Type 2 diabetes SILVANA LEMOS 01:59 PM mellitus without CLINIC complications Plan of Treatment: Future Appointments (+ 6 [...] 09:45 AM AMBULATORY - MEDICINE [facility] CL[facility] IC Oct 29, 2020 01:00 PM AMBULATORY - NONE [facility] SANCHEZ [facility] Oct 29, 2020 01:30 PM AMBULATORY - NONE [facility] SANCHEZ [facility] Nov 03, 2020 11:30 AM AMBULATORY - MEDICINE [facility] CLIN Nov 20, 2020 03:00 PM AMBULATORY - MEDICINE [facility] Nov 27, 2020 12:30 PM AMBULATORY - MEDICINE [facility] Feb 10, 2021 08:00 AM AMBULATORY - MEDICINE [facility] PORTILLO [facility] Feb 23, 2021 10:30 AM AMBULATORY - MEDICINE [facility] PORTILLO [facility] Lab Results: +/- 30 days of the encounter This section includes the Chemistry and Hematology Lab Results on record with [place] for the patient. Radiology Reports and Pathology Reports are provided separately, in subsequent sections.Lab Results This section contains the Chemistry/Hematology Results that were resulted 30 days before or 30 daysafter the date of the Encounter. Date/Time Source Result Type Result - Unit Interpretation Reference Range Comment Sep 12, 2020 09:49 [facility] TESTOSTERONE, TOTAL Speci men Type: SERUM AM Comment: TESTOS TERONE TOTAL INTERPRETATION: Testosterone peaks at approximately 7am and is at its minimum at approximately 8pm. Reference ranges as of 01/10/02: Male 2.8-8.0 ng/mL Female 0.1-0.8 ng/mL Ordering Provid er: NEFTALI PASTOR Report Released Date/Time: Aug 27, 2020 01:58 PM Reporting Lab: LU[facility] CASTELLANOS [facility] [address] [place] [address] Performing Lab: LUKE Rivera [facility] [address] [facility] [address] TESTOSTERONE, TOTAL 2.6 ng/ml L 2.8-8 Sep 12, 2020 09:49 [facility] ANTI-NUCLEAR AB (BILL) Spe cimen Type: SERUM AM No comment enter ed. Ordering Provid er: NEFTALI PASTOR Report Released Date/Time: Aug 27, 2020 01:58 PM Reporting Lab: LUKE Rivera [address] [place] [address] Performing Lab: LUKE Rivera [facility] ; [place] [address] ANTI NUC AB TITER <1:80 <1:80 Sep 12, 2020 09:49 AM [facility] IRON PANEL Specim en Type: BLOOD No comment enter ed. Ordering Provid er: NEFTALI PASTOR Report Released Date/Time: Aug 27, 2020 01:58 PM Reporting Lab: LUKE SANCHEZ[address] [address] Performing Lab: LUKE Rivera [address] [place] [address] UIBC 316 ug/dL 112-346 IRON 67 ug/dL 38-153 TOTAL IRON BINDING CAPACITY 383 ug/dL 25 0-450 % SATURATION 17.5 % L 20-55 Sep 12, 2020 [facility] PSA WITH FREE PSA Specimen T [...] 27, 2020 01:58 PM Reporting Lab: [facility]HEZ[address] [place] [address] Performing Lab: LUKE [address]ANCHEZ[address] [place] [address] PROSTATE SPECIFIC ANTIGEN 2.43 ng/ml 0-4 .00 Sep 12, 2020 09:49 AM [facility] RHEUMATOID FACTOR Spec imen Type: SERUM No comment enter ed. Ordering Provid er: NEFTALI PASTOR Report Released Date/Time: Aug 27, 2020 01:58 PM Reporting Lab: LUKE CASTELLANOS [address] [address] Performing Lab: LUKE Rivera [address] [place] [address] RHEUMATOID FACTOR <14 IU/mL 0-13 Sep 12, 2020 [facility] THYROID STIMULATING Specimen Type: SERUM 09:49 [...] 27, 2020 01:58 PM Reporting Lab: LUKE SANCHEZ[address] [place] [address] Performing Lab: LUKE Rivera [place] [address] [place] [address] THYROID STIMULATING HORMONE 2.19 IU/mL 0.300-4.25 Sep 12, 2020 09:49 AM [facility] URINALYSIS (IRIS) Spec imen Type: URINE No comment enter ed. Ordering Provid er: NEFTALI PASTOR Report Released Date/Time: Aug 27, 2020 01:58 PM Reporting Lab: LUKE [address]INWR[address] [place] [address] Performing Lab: LUKE Rivera [address] [place] [address] URINE COLOR Yellow SPECIFIC GRAVITY 1.022 1.003-1.030 [...] < 2 Sep 12, 2020 09:49 AM [facility] URIC ACID Specim en Type: SERUM [...] 27, 2020 01:58 PM Reporting Lab: [place] [address] [place] [address] Performing Lab: [place] [address] [place] [address] URIC ACID 5.2 mg/dL 3.5-8.5 Sep 12, 2020 [facility] VITAMIN D (25-HYDROXY) Speci men Type: [...] 2020 01:58 PM Reporting Lab: LUKE CASTELLANOS [place] [address] [place] [address] Performing Lab: [place] [address] [place] [address] VITAMIN D (25-HYDROXY) 65.8 ng/mL 30.0-1 00 Sep 12, 2020 [facility] C-REACTIVE PROTEIN Specimen Type: SERUM 09:49 [...] mg/dL Results have been converted to mg/L [facility] 06/30/21 C-REACTIVE PROTEIN reported incorrectly as 0.16 by [[id number]]. Changed to 0.00 on Jun 30, 2021@ 12:29 by [[id number]]. CRP incorrectly reported in mg/dL Results were converted to mg/L Disregard amendments made on 06/30/21 ([facility] 07/01/21) C-REACTIVE PROTEIN reported incorrectly a s 0.00 by [[id number]]. Changed to 1.6 on Jul 01, 2021@12:47 by [[id number]]. Ordering Provid er: NEFTALI PASTOR Report Released Date/Time: Aug 27, 2020 01:58 PM Reporting Lab: [facility] CASTELLANOS [place] [address] [place] [address] Performing Lab: LU[facility] CASTELLANOS [place] [address] [place] [address] C-REACTIVE PROTEIN 1.6 mg/L 0-4.99 Sep 12, 2020 09:49 [facility] CBC & MORPHOLOGY (WITH Sp ecimen Type: BLOOD AM DIFF) No comment enter ed. Ordering Provid er: NEFTALI PASTOR Report Released Date/Time: Aug 27, 2020 01:58 PM Reporting Lab: [facility] CASTELLANOS [place] [address] [place] [address] Performing Lab: LUKE SANCHEZ[address] [place] [address] WBC (TOTAL WBC COUNT) 10.7 K/L H [...] H 0-0.07 Sep 12, 2020 09:49 AM [facility] HEMOGLOBIN A1C Specim en Type: BLOOD [...] 2020 01:58 PM Reporting Lab: LUKE CASTELLANOS [address] [place] [address] Performing Lab: LUKE CASTELLANOS [address] [address] HEMOGLOBIN A1C 10.4 % H 0-5.6 Sep 12, 2020 [facility] COMPREHENSIVE METABOLIC Spec imen Type: SERUM [...] 2020 01:58 PM Reporting Lab: LUKE CASTELLANOS [address] [address] Performing Lab: LUKE CASTELLANOS [address] [address] GLUCOSE 181 mg/dL H 71-109 BUN/UREA (BLOOD [...] L > 90 Sep 12, 2020 09:49 [facility] LIPID PANEL Specimen Type: SERUM AM [...] 2020 01:58 PM Reporting Lab: LUKE CASTELLANOS [address] [place] [address] Performing Lab: LUKE CASTELALNOS [address] [place] [address] CHOLESTEROL 237 mg/dL H <199 TRIGLYCERIDE 248 mg/dL H <149 HDL CHOLESTEROL 42 mg/dL >40 NON-HDL CHOLESTEROL 195 mg/dL <130 LDL, DIRECT 167 mg/dL H 0-129 Sep 12, 2020 09:49 AM [facility] VITAMIN B-12 Specim en Type: SERUM Comment: High d oses of Biotin supplements (>5 mg/day) may falsely increase Vitamin B-12, Vitamin D (25OH), Free T4, and Folate results. Test specimens should be collected at least 8 hrs after last ingestion of high dose biotin. Ordering Provid er: NEFTALI PASTOR Report Released Date/Time: Aug 27, 2020 01:58 PM Reporting Lab: LU[facility] CASTELLANOS [place] [address] [place] [address] Performing Lab: [place] [address] [address] [place] [address] VITAMIN B-12 479 pg/mL 232-1245 Aug 22, 2020 11:18 [facility] VITAMIN D (25-HYDROXY) Sp ecimen Type: [...] 20, 2020 05:09 PM Reporting Lab: [place] [address] [place] [address] Performing Lab: [place] [address] [place] [address] VITAMIN D (25-HYDROXY) 61.9 ng/mL 30.0-1 00 Aug 22, 2020 [facility] COMPREHENSIVE METABOLIC Spec imen Type: SERUM [...] 20, 2020 05:09 PM Reporting Lab: LUKE Rivera [address] [place] [address] Performing Lab: LUKE Rivera [place] [address] [place] [address] GLUCOSE 233 mg/dL H 71-109 BUN/UREA (BLOOD [...] > 90 Aug 22, 2020 11:18 AM [facility] LIPID PANEL Specim en Type: SERUM [...] 20, 2020 05:09 PM Reporting Lab: LUKE Rivera [address] [place] [address] Performing Lab: [place] [address] [address] [place] [address] CHOLESTEROL 226 mg/dL H <199 TRIGLYCERIDE 214 mg/dL H <149 HDL CHOLESTEROL 38 mg/dL L >40 NON-HDL CHOLESTEROL 188 mg/dL <130 LDL, DIRECT 163 mg/dL H 0-129 Aug 22, 2020 11:18 AM [facility] VITAMIN B-12 Specim en Type: SERUM Comment: High d oses of Biotin supplements (>5 mg/day) may falsely increase Vitamin B-12, Vitamin D (25OH), Free T4, and Folate results. Test specimens should be collected at least 8 hrs after last ingestion of high dose biotin. Ordering Provid er: NEFTALI PASTOR Report Released Date/Time: Aug 20, 2020 05:09 PM Reporting Lab: LUKE VINCENT[address] [place] [address] Performing Lab: LUKE Rivera [address] [place] [address] VITAMIN B-12 443 pg/mL 232-1245 Aug 22, 2020 11:18 AM [facility] HEMOGLOBIN A1C Specim en Type: BLOOD [...] 20, 2020 05:09 PM Reporting Lab: [facility] [address]ANCHEZ[address] [address] Performing Lab: [place] [address] [address] HEMOGLOBIN A1C 10.0 % H 0-5.6 Aug 22, 2020 [facility] MICROALBUMIN/CREATININE PANEL Specimen Type: URINE 11:18 AM Comment: CREATI CHEMA, URINE reference ranges apply to first morning void. Ordering Provid er: NEFTALI PASTOR Report Released Date/Time: Aug 20, 2020 05:09 PM Reporting Lab: LUKE SANCHEZ[address] [place] [address] Performing Lab: LUKE Rivera [address] [place] [address] CREATININE, URINE 89.2 mg/dL 40-278 MICROALBUMIN (QUANT) 4.1 mg/dL MICROALBUMIN/CREATININE RATIO 46.0 mg/gCR H 0-30 Aug 22, 2020 11:18 [facility] THYROID STIMULATING Speci men Type: SERUM [...] 2020 05:09 PM Reporting Lab: LUKE CASTELLANOS [address] [place] [address] Performing Lab: LUKE Rivera [address] [place] [address] THYROID STIMULATING HORMONE 0.856 IU/mL 0.300-4.25 Aug 22, 2020 11:18 [facility] CBC WITH Specim en Type: BLOOD AM DIFF No comment enter ed. Ordering Provid er: NEFTALI PASTOR Report Released Date/Time: Aug 25, 2020 07:25 AM Reporting Lab: LUKE CASTELLANOS [address] [place] [address] Performing Lab: LUKE Rivera [facility] ; [place] [address] WBC, IP 8.7 K/uL 4.5-11.0 RBC, IP [...] 0.08 K/L 0.0-0.2 Aug 22, 2020 11:18 [facility] URINALYSIS Spec imen Type: URINE AM No comment enter ed. Ordering Provid er: NEFTALI PASTOR Report Released Date/Time: Aug 25, 2020 07:25 AM Reporting Lab: LUKE CASTELLANOS [address] [place] [address] Performing Lab: LUKE Rivera [facility] ; [place] [address] COLLECTION TYPE, IP (UA) CLEAN CATCH COLOR, [...] 0-1+ BACTERIA, IP (UA) NEGATIVE /hpf Negative Vital Signs: All taken on the encounter date This section contains inpatient and outpatient Vital Signs collected on the date of the Encounter. Date/Time Temperature Pulse Blood Respiratory SP02 Pain Height Weight Raudel dy Source Pressure Rate Mass Index Aug 27 [facility] 2020 11:44 mm[Hg] N [facility] Aug 27 6 [facility] 2020 11:43 mm[Hg] N [facility] Aug 27, 162/98 [facility] 2020 11:43 mm[Hg] N [facility] Aug 27, 96.7 F 92 156/99 93 % 210 lb 32 [facility] 2020 11:39 /min mm[Hg] N [facility] Social History: Smoking Status (Most current) [...] Comment Facility Aug 27, 2020 11:30 AM [place]-TOBACCO USER EVERY DAY [facility] Tobacco Use History This section includes a history of the smoking, or tobacco- related health factors, that were collected on or before the date of the Encounter. The data comes from the [place] facility where the Encounter took place. 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 [facility] Aug 27, 2020 11:30 AM VA-TOBACCO USE MED NO [facility] Aug 27, 2020 11:30 AM [place]-TOBACCO USER EVERY DAY [facility] Sep 08, 2018 10:18 AM VA-TOBACCO USE 30 YEARS OR [facility] MORE Sep 08, 2018 10:18 AM [place]-TOBACCO USE ADVICE [facility] Sep 08, 2018 10:18 AM 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 USE 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 [facility] Sep 08, 2018 10:18 AM [place]-TOBACCO USE MED NO [facility] Sep 08, 2018 10:18 AM VA-TOBACCO USE WI 30 MIN L [facility] Sep 08, 2018 10:18 AM [place]-TOBACCO USER EVERY DAY [facility] Oct 20, 2017 09:18 AM CURRENT TOBACCO USER [facility] Oct 20, 2017 09:18 AM TOBACCO SCREEN COMPLETED [facility] No, not willing to quit now Oct 11, 2016 09:57 AM CURRENT TOBACCO USER [facility] Oct 11, 2016 09:57 AM [facility]ACCO [facility] Oct 11, 2016 09:57 AM TOBACCO SCREEN COMPLETED [facility] No, not willing to quit now Feb 20, 2015 10:04 AM CURRENT TOBACCO USER [facility] Feb 20, 2015 10:04 AM TOBACCO SCREEN COMPLETED [facility] No, not willing to quit now Jan 25, 2014 08:44 AM CURRENT TOBACCO USER [facility] Jan 25, 2014 08:44 AM TOBACCO SCREEN COMPLETED [facility] No, not willing to quit now Encounter Notes: All associated encounter notes This section contains the clinical notes associated to the Encounter. Date/Time Encounter Note(s) Provider Source Sep 14, 2020 09:15 LETTERS: NEFTALI PASTOR [facility] LOCAL TITLE: PROVIDER LETTER STANDARD TITLE: LETTERS DATE OF NOTE: SEP 14, 2020@21:15 ENTRY DATE: SEP 14, 2020@21:15:23 AUTHOR: NEFTALI PASTOR EXP COSIGNER: URGENCY: STATUS: COMPLETED SUBJECT: Repeat & Additional Lab Results Letter . PROVIDER LETTER Has ADDENDA [place] [facility] [address], [address] [place] [address] LISETTE BEAL [address] [place] [address] OCT 08, 2020 Dear LISETTE BEAL, The results of your recent tests have been revie wed. The purpose of this letter is to share those results and the provide r's recommendations with you. LABS Annual/Routine Labs w/o additional labs: HEMAGLOBIN A1C: 10.4 (09/12/20 09:49): Abnormal. Comments: Needs improvement We need to discuss further in regards to changes in your plan of care & treatment of uncontrolled diabetes. Please make a follow-up appointment to do so. GLUCOSE/BLOOD SUGAR: 181 (09/12/20 09:49) -- Anisha poole. Comments: Needs improvement COMPLETE BLOOD COUNT/CBC: Normal. Collection DT Spec PLT WBC RBC HGB HCT MCV MCH 09/12/2020 09:49 BLOOD 228 10.7 H 5.79 H 17.4 H 52.3 H 90.3 30.1 BASIC METABOLIC PANEL/COMPREHENSIVE METABOLIC PA TAY: RESULTS: SODIUM...........: 137 (09/12/20 09:49) Normal. POTASSIUM........: 4.3 (09/12/20 09:49) Normal. BUN..............: 16 (09/12/20 09:49) Normal. CREATININE.......: 1.2 mg/dL (09/12/2020 09:49) Normal. CALCIUM..........: 10.0 (09/12/20 09:49) Normal . LIVER FUNCTION TESTS (LFTs): RESULTS: Normal. Collection DT Spec PROT,T ALB GLOB AST ALT ALP T MAUDE a 09/12/2020 09:49 SERUM 7.7 5.0 2.7 15 23 117 0 .5 LIPID PROFILE / CHOLESTEROL: RESULTS: Abnormal. Collection DT Spec CHOL AST TRIG HDL LDLcalc zCH L/HD NON-HDL a 09/12/2020 09:49 SERUM 237 H 15 248 H 42 195 b 08/22/2020 11:18 SERUM 226 H 16 214 H 38 L 188 12/04/2018 10:53 SERUM 189 16 204 H 37 111 5.1 152 PLEASE NOTE Recommendations: Ellington was advised on changes & modifications t o activity & dietary, exercise can significantly influence cholesterol levels and importance of these changes can have on an individual's car raheem-vascular health. PLEASE NOTE Recommendations: Educated on elevated cholesterol/triglyceride le vels result from ingestion of greasy fatty foods, processed foods, fast shay d, and little to no exercise. Subtle changes in lifestyle, diet lashell fication & a walking regimen can make significant impacts. All of i ch can make a significant difference in an individual's cholesterol/trigly ceride levels. These are a few things I would recommended working on initia llmacie, if you haven't done so already. Any questions/concerns please feel free to contact the office to schedule a follow-up appt to discuss further. Comments: Needs improvement These levels have worsened since your last blood draw. PROSTATE SPECIFIC ANTIGEN/PSA: 2.43 (09/12/20 09 :49) Normal. THYROID STIMULATING HORMONE (TSH): 2.19 ( 09:49) Normal. URINALYSIS (UA): Normal. Collection DT Spec UrCOLOR UR. BLD GLU PROTEIN R BC/HPF WBC/HPF 09/12/2020 09:49 URINE Yellow NEGATIVE NEGATIVE 10 1 1 VITAMIN B12: 479 (09/12/20 09:49) Normal. VITAMIN D: Normal. Collection DT Spec [id number] a 09/12/2020 09:49 SERUM 65.8 ADDITIONAL LAB(s): -Testosterone Level: abnormal low. -Result(s): 2 .6 -Normal Values: 2.8 - 8.0 -Test(s): auto immune testing -- negative. PLAN OF CARE (P.O.C.): Recommendations & Formulated Plan of Care relate d to the today's review & evaluation of notes results above: Please contact [place] outpatient clinic and schedule a follow-up appointment with provider. If you have any questions or concerns, please co ntact the following: [facility] ([facility] @ . You can also utilize [employer]) and send your PACT Team a Secured Message. (PACT Team is "Team Sumany") . Sincerely, Serge Bush [facility] ([facility] [address], [address] [place] [address] (Office) /janet/ NEFTALI PASTOR Nurse Practitioner Signed: 10/08/2020 15:57 10/09/2020 ADDENDUM STATUS: COMPLETED LETTER MAILED TO PATIENT. /janet/ SILVANA LEMOS LPN Signed: 10/09/2020 07:56 Aug 27, 2020 01:57 ADMINISTRATIVE NOTE: [facility] PM LOCAL TITLE: AFTER VISIT SUMMARY STANDARD TITLE: ADMINISTRATIVE NOTE DICT DATE: AUG 27, 2020@13:57:02 ENTRY DATE: JOSE Manrique 2020@13:57:03 DICTATED BY: NEFTALI PASTOR EXP COSIGNER: URGENCY: STATUS: COMPLETED The patient was [...] copy of the after-visit summary provided to th e patient is available in [employer]. SCANNED DOCUMENT SIGNATURE NOT REQUIRED Electronically Filed: 08/27/2020 by: NEFTALI PASTOR Nurse Practitioner Aug 27, 2020 01:08 PRIMARY CARE E & M NOTE: NEFTALI PASTOR [facility] PM LOCAL TITLE: PRIMARY CARE PROVIDER NOTE STANDARD TITLE: PRIMARY CARE E & M NOTE DATE OF NOTE: AUG 27, 2020@13:08 ENTRY DATE: AUG 27, 2020@13:08:48 AUTHOR: NEFTALI PASTOR EXP COSIGNER: URGENCY: STATUS: COMPLETED SUBJECT: Annual wellness visit & multiple joint pain & MAYER's. PRIMARY CARE PROVIDER NOTE(s) FOR ANNUAL RECA LL VISIT APPOINTMENT(s) LISETTE BEAL is a 54 year old MALE . Patient identification confirmed by the followin g items: Full Name, Date of , & SSN prior to intervi ew and examination. Hand washing is completed prior to interview and examination. Both & [facility] Provider & Staff adhered to Covid-19 recomm ended precautions & safety measures as per VA policies & procedures. Protec tive face masks were worn throughtout this appointment. was: Alone History Provided By: Patient / Records Reviewed from: Patient, VA records Primary Healthcare Provider is: VA Primary Provider is Serge Bush @ [facility]. Today's appt is via Office visit a scheduled arleen ointment face to face Chief Complaint/CC: New Pt. / Yearly Appt. Offic e visit Evaluation and management of chronic problem(s) Annual Recall Visit w/ Med/Tx & Lab Review. Annual Recall Visit Healthcare Maintenance & Sta tus. Annual Diabetic Recall Visit w/ Update & Review of Labs. History of Present Illness (Annual Visit): is here today for annual visit w/ review & updates to medication list, diagnosis list & discussion/review of rece nt lab results, if completed prior to today's appointment. Annual wellness w/ DM check. Ellington rep orts multiple medical issues since his last visit with me. Reports that following kimani rns: 1) New onset occiput headaches couple ti mes wkly of unknown etiology. Believes it is due to his chronic pos terior neck pain and increased stressors within his family & home life. Has been using his neck exte nder over the top of door frame, but that only helps a little. Last eye ex am 2 yrs ago. 2) Worsening muscle fatigue that he states has b een ongoing for < 3 months. States he's been exercising more and working out , attempting to build muscle and stamina, which he states has never been an i ssue for him in the past. Now no matter how much he pumps iron, he can't seem to bulk up muscle. PMHx/PSHx/Social Hx & PFHx: See the "WELL ADULT" portion of the Problem(s) L ist for further information regarding the following: Marital Status, Tobacco/Alcohol/Drugs, PMHx/PSHx /PFHx, & if Ellington's care & Healthcare Management is through the this Sc C linic & Provider or being seen by a Non-Va Provider(s) and/or Specialist(s ). ACTIVE PROBLEM LIST: Chronic Problem(s), Dx, Past Med & Surgical Hx. Reviewed & Updated Problem List with Dur ing Today's Visit. Computerized Problem List is the source for the followin. History of surgery 2. Essential hypertension 3. Dental caries 4. History of colonoscopy 01/2018 -- Due at this time, going to do FIT julio ting. 5. Well adult Hx: [place] x 16 yrs. Mos: [employer]. Marital Status: . Alcohol Use: Yes, rarely. Tobacco Use: Yes, smoker (1/2 ppd). Primary healthcare provider is YASEMIN Pastor @ the [facility]. 6. Neck pain 01/2018 -- Getting MICHELLE's thru the Pain Clinic @ [facility] 7. 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 Obesity 11. Chronic pain 12. Tobacco use 13. Depressive disorder 14. Diabetes mellitus Recommended Screening(s) & Reminder(s): Male Screening(s): `````````````````` Other Screening(s): due for updated labs. Reminder(s) Reviewed & Updated: None Clinical Reminders Done Today Amputation Risk Assessment: Diabetic Amputation Risk Assessment = LEVEL 2 - MODERATE RISK Individuals at Level 2, moderate risk, demonstr ate sensory loss and the following additional finding(s): Diminished circulation as evidenced by absent o r weakly palpable pulses. Assess Statin Use - Lipids (CVD/DM): The patient declines to be treated with a stati n. Avg Risk Colorectal Cancer Screen: AVERAGE RISK colorectal cancer screening is due based on information available to this clinical reminder Patient declined screening/surveillance. Patient educated on the benefits of colorectal cancer screening/surveillance and the risk if screenin g/surveillance is not completed. Level of Understanding: Good DM HbA1c >9: Medications have been changed, see orders. Glycohemoglobin (A1C) ordered for today. VITAL SIGNS: Blood Pressure: 129/89 (08/27/2020 11:44) Respiration: 20 (12/07/2018 16:01) Temperture: 96.7 F [35.9 C] (08/27/2020 11:39) Weight: 210 lb [95.5 kg] (08/27/2020 11:39) Pulse: 92 (08/27/2020 11:39) Pain Ratin (08/27/2020 11:43) REVIEW OF SYSTEMS (ROS): GENERAL/CONSTITUTION: C/O: [ ] WEIGHT LOSS [ ] NIGHT SWEATS [ ] FEVER/CHILLS [ ] WEIGHT CHANGES [ ] INSOMNIA [ ] MALAISE [X] FATIGUE [ ] LOSS OF APPETITE [X] BODY ACHES [X] SEE HPI HEENT: C/O: [ ] Earache [ ] Nose Bleed(s) [X] Headache(s) [ ] Eye Sensitivity [ ] Eye Pain [ ] Vision Changes [ ] Double Vision [ ] Sore Throat [ ] Chgs in Vision [ ] Dry Eyes [ ] Epitaxis [ ] Sinus Allergies [ ] Rhinorrhea [ ] Chewing Problem(s) [ ] Swallowing Problems [ ] Congestion [ ] Blood in Sputum [ ] Post Nasal Drip [ ] Hearing Loss, Acute [ ] Hearing Loss, Chroni c [ ] Tinnitus, Chronic [ ] See HPI EYE(s): Denies: Eye drainage, redness, pain, flashing li ghts, floaters or vision changes. CARDIOVASCULAR: Denies: Chest pain, dyspnea, orthopnea, paroxysm al nocturnal dyspnea, palpitations, syncope, dizziness, or edema. RESPIRATORY: Denies: Shortness of breath, cough, hemoptysis, sputum production, painful breathing or wheezing. GASTROINTESTINAL: Denies: Abdominal pain, nausea, vomiting, dyspha triston, heartburn, diarrhea, constipation, changes in bowel habits, melena, or hematochezia GENITOURINARY: Denies: Burning, frequency, hesitency, urgency, incontinence, discharge, or blood in urine. MUSCULOSKELETAL: C/O: GENERALIZED JOINT(s) & MUSCLE(s): [X] Joint Pain [X] Muscle Aches [ ] Joint Swelling [X] Muscle Weakness [X] Joint Stiffness [X] Muscle Stiffness [X] Decreased ROM [X] Painful ROM [X] See HPI UPPER EXTREMITIES: [X] Lt Hand Pain [X] Rt Hand Pain [ ] Lt Elbow Pain [ ] Rt Elbow Pain [ ] Lt Shoulder Pain [ ] Rt Shoulder Pain [X] See HPI SPINE: Chronic Neck and Back Pain CERVICAL SPINE: Chronic worsening, possible sour ce of MAYER's that he's starting to experience. see HPI. LUMBAR SPINE: Chronic worsening CLBP See HPI. NEUROLOGICAL: C/O: [ ] Vertigo [ ] Recent Falls [ ] Memory Changes [ ] Dizziness [X] Numbness, Hands [X] Tingling, Hands [X] Numbness, Feet [X] Tingling, Feet [ ] Acute Headaches [X] Chronic Headaches [ ] Paresthesias [ ] Seizures [X] See HPI SKIN: Denies: Rash, bruising, itching, dryness, new or changing moles, lesions or hair or nail changes. ENDOCRINE: C/O: [ ] Intolerance to Heat [ ] Intolerance to Cold [ ] Increased Thirst [ ] Increased Urination [ ] Heart Palpitations [ ] Abnormal Hair Loss [ ] Diabetes [ ] Abnormal Facial Hair [ ] Abnormal Sweating [ ] Breast Discharge [ ] Enlarged Lymph Nodes [X] See HPI fatigue of unknown etiology. HEMATOLOGIC: Denies: Bleeding, bruising, lymphadenopathy. PSYCHIATRIC: C/O: [ ] Depression [ ] Hair Loss [ ] Mood Changes [ ] Anxiety [ ] Feelings of SI/HI [ ] Increased PTSD [ ] Nightmares [ ] Hot Flashes [ ] Dizzy/Disoriented [X] See HPI increased family stressors. REPRODUCTIVE: Denies: Changes in urinary stream, ED, penile le sions, masses or discharge, testicular or scrotal tenderness or masses, patricio ia or STDs ALLERGIES/IMMUNOLOGIC: No Complaints PHYSICAL EXAM: GENERAL: Alert and oriented X3. Well developed and well n ourished. Mood and affect good. HEENT: Head is normalcephalic, atraumatic, symmetrical. Pupils equal and round, no scleral icterus, reac t to light. NECK: No lymphadenopathy or masses. No bruits or nodul es. Thyroid smooth. RESPIRATORY: Chest Auscultation - clear to auscultation bilat erally. Respirations - are regular and easy without coug h, no unusual effort or audible wheezes. CARDIAC: Heart - Normal RR S1 & S2, no murmurs or rubs no tedly heard. GI/: Active bowel sounds x 4. Abdomen soft, non-tende r, no massess, organmegaly, guarding or rigidity. EXTREMITIES: No edema, clubbing, cyanosis, ulcers, varicositi es, or atrophy. Palpable pulses of all extremities. Normal capil rio refill. MUSCULOSKELETAL: UPPER EXTREMITIES: Abnormal HAND EXAM: Significant Findings: bilaterally pain, stiffnes s, joint swelling, decreased ROM tender, erythematous Joint tenderness periph eral pulses palpable, no deformities, arthritis Visual Exam of the Hand(s) are Enlarged bilatera lly. with mild pain Palpable Exam of the Hand(s) is tender to Arom/P rom bilaterally Limited, Active range of motion bilaterally. 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 Equal strength, DTR 's normal bilateral. mild neuropathy in BLE's. SPINE: Abnormal CERVICAL SPINE EXAM: Abnormal Significant Findings: Decreased/limited Arom, TTP along the posterior neck & muscle areas. Muscle Strength & Resistance is Normal Arom/Prom is Somewhat difficult with mild pain THORACIC SPINE EXAM: Normal LUMBAR SPINE EXAM: Abnormal Significant Findings: tender Muscle Strength & Resistance is Normal with mild pain Lumbar spine w/ noted with Limited AROM/PROM. Pain was noted w/ AROM & against resistance YES. Arom/Prom is Somewhat difficult with mild pain NEUROLOGICAL: Significant Findings: alert to person, place and time, symmetrical reflexes, cranial nerves in tact Guarded, limped gait. VASCULAR: Pulses of the bilaterally upper extremity(s) are Normal. Pulses of the bilaterally lower extremity(s) are Normal. SKIN: Warm and dry with no rashes. No suspicious lesio ns, induration, petechii, or nodules. Normal turgor. PSYCH: Oriented to person, place, and time. Mood & affe ct normal. Recent and remote memory normal, judgment normal . REPRODUCTIVE: Not examined RECTAL: Not examined ALLERGIC/IMMUNOLOGIC: Negative DIABETES REVIEW & MANAGEMENT Diabetic Plan of Care was reviewed & discussed w / in detail during today's visit. Education provided in regards to Ellington's current diagnosis, medication(s) & generated a plan of care. Julio César n's questions & concerns were addressed and answered. reports the following: Occasionally forg ets his medication. Since Ellington's last office appt, 's acti vity has been Blood Pressure Management: Today's current blood pressure is 129/89 (2020 11:44) BP goal of <130/80 is currently achieved with the current medication(s)/treatment(s) prov ided. Ellington has a BP cuff @ home & performs BP - Not very often Reviewed importance of keepi ng Bp's at or below 130/80 to prevent stroke, heart attacks, kidney failure, blindness, & loss of li mbs was reviewed. Ellington performs glucose monitoring @ Home - Yes , quite often Advised importance of monitoring HgBA1c levels. Most recent A1C is 10.0 (08/22/20 11:18) is Norm al A1c Goals of < 6.4% are not currently being achi eved with current treatment regimen. Lipid Goal(s): needs improvement. LABS & IMAGING STUDIES -- CLAIRE GREGORY Discussion During Today's Visit: Labs, &/or Radiology reports were reviewed with the Ellington during today's appointment. Current results reviewed, d iscussed, and all questions answered. states understanding of current Med/Txmnt Plan of Care. The Medication Reconcile was revie wed & completed during today's visit. The up to date Med/txmnt list & t eaching documentation was provided to the Ellington today in the printed after visit summary paperwork. Hemoglobin A1c: 10.0 (08/22/20 11:18) Glucose Levels: 233 (08/22/20 11:18) CBC: LAB CUMULATIVE SELECTED 1 Collection DT Spec WBC RBC HGB HCT MCV MCH MCHC 12/04/2018 10:53 BLOOD 9.6 5.54 16.4 52.2 H 94. 2 29.6 31.4 L 08/30/2018 11:45 BLOOD 9.5 5.47 16.5 51.1 H 93. 4 30.2 32.3 04/24/2018 08:20 BLOOD 8.6 5.06 15.1 48.0 94.9 29.8 31.5 L LAB CUMULATIVE SELECTED 2 Collection DT Spec PLT ESR RDW % NEUT % LYMPH % MONO 12/04/2018 10:53 BLOOD 231 13.7 63.0 22.3 7.6 08/30/2018 11:45 BLOOD 199 14.0 68.5 16.7 7.9 04/24/2018 08:20 BLOOD 219 13.3 57.8 28.6 6.4 LAB CUMULATIVE SELECTED 3 Collection DT Spec % EOS % BASO 12/04/2018 10:53 BLOOD 5.9 0.6 08/30/2018 11:45 BLOOD 5.8 0.5 04/24/2018 08:20 BLOOD 6.4 0.5 Chemistry: Sodium...........: 138 (08/22/20 11:18) Potassium........: 5.6 (08/22/20 11:18) Bun..............: 16 (08/22/20 11:18) Creatinine.......: 1.1 mg/dL (08/22/2020 11:18) Calcium..........: 9.7 (08/22/20 11:18) Liver Tests: Collection DT Spec AST ALT ALP TBIL a 08/22/2020 11:18 SERUM 16 28 105 0.5 Lipid Profile / Cholesterol: Collection DT Spec CHOL AST TRIG HDL LDLcalc zCH L/HD NON-HDL a 08/22/2020 11:18 SERUM 226 H 16 214 H 38 L 188 12/04/2018 10:53 SERUM 189 16 204 H 37 111 5.1 152 08/30/2018 11:45 SERUM 196 14 250 H 36 110 5.4 160 PSA: 2.6 (01/16/18 15:45) TSH: 0.856 (08/22/20 11:18) Urinalysis: No data available for URINE COLOR; U RINE BLOOD; URINE GLUCOSE; zURINE YEAST; URINE PROTEIN; URINE RBC/HPF; URIN E WBC/HPF Vitamin B12: 443 (08/22/20 11:18) Vitamin D: Collection DT Spec [id number] a 08/22/2020 11:18 SERUM 61.9 DIAGNOSIS/ASSESSMENT: Annual Wellness Visit -- Rev iewed & Discussed updates to the Ellington's Medlists, Diagnose(s), & (if completed before appt) abdulkadir jolly lab results. Multiple joint pain/discomfort Bilateral hand pain. Bilateral hip pain Lumbar spine pain Cervical spine pain New onset headaches. DM - uncontrolled. Unable to completely address during today's visit, 's main concern today was the pain he's experiencin g. ACTIVE/HISTORICAL PROBLEM LIST: Code Description M79.643 Hand pain ([facility] [id number]) R51.9 Headache ([facility] [id number]) R69. History of surgery ([facility] [id number]) I10. Essential hypertension ([facility] [id number]) K02.9 Dental caries ([facility] [id number]) R69. 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 Stone-Stahli line ([facility] [id number]) H25.813 Combined form of senile cataract ([facility] [phone] [id number]) E66.9 Obesity ([facility] [id number]) G89.4 Chronic pain ([facility] [id number]) Z72.0 Tobacco use ([facility] [id number]) F32.9 Depressive disorder ([facility] [id number]) E11.9 Diabetes mellitus ([facility] [id number]) ALLERGIES: Patient has answered NKA ALLERGIES WERE REVIEWED & UPDATED IF NEEDED * Active and Recently Outpatient Medicatio ns (including Supplies): Active Outpatient Medications Status 1) ALCOHOL PREP PAD USE PAD TO AFFECTED AREA DIRECTED ACTIVE 2) ALOGLIPTIN 12.5MG TAB TAKE ONE TABLET BY MOUT H EVERY ACTIVE DAY FOR DIABETES 3) CARBOXYMETHYLCELLULOSE 0.5% OPH 15ML LIUS INST ILL 1 ACTIVE DROP IN EACH EYE FOUR TIMES A DAY FOR DRY EYES 4) CHOLECALCIF 125MCG (D3-5,000UNIT) CAP TAKE ON E ACTIVE CAPSULE BY MOUTH DAILY 5) FISH OIL 1000MG (500MG DHA/EPA) CAP TAKE TWO CAPSULES ACTIVE BY MOUTH EVERY DAY FOR HYPERLIPIDEMIA. 6) INSULIN,GLARGINE 100 UNIT/ML 3ML SOLOSTR INJE CT 23 ACTIVE UNITS UNDER SKIN AT BEDTIME 7) LANCET,SOFTCLIX USE 1 LANCET NEEDED ACTIVE 8) LISINOPRIL 10MG TABLET TAKE ONE TABLET BY PEPPER TH DAILY ACTIVE TO LOWER BLOOD PRESSURE 9) METFORMIN HCL 1000MG TAB TAKE ONE TABLET BY M OUTH ACTIVE TWICE A DAY FOR DIABETES 10) METHOCARBAMOL 750MG TAB TAKE TWO TABLETS BY MOUTH ACTIVE EVERY 8 HOURS NEEDED FOR MUSCLE SPASMS 11) NAPROXEN 500MG TAB TAKE ONE TABLET BY MOUTH TWICE A ACTIVE DAY FOR PAIN 12) NEEDLE,PEN 30G,8MM USE 1 NEEDLE DIRECTED ACTIVE NEEDED FOR USE WITH INSULIN PEN INJECTIONS 13) PREGABALIN 150MG ORAL CAP TAKE ONE CAPSULE ( 150MG) BY ACTIVE MOUTH TWICE A DAY FOR DIABETIC NERVE PAIN 14) VENLAFAXINE HCL 75MG 24HR SA CAP TAKE ONE CA PSULE BY ACTIVE MOUTH TWICE A DAY FOR PAIN MANAGEMENT / DEPRESS ION 15) ZZ ACCU-CHEK DARCY PLUS(GLU) TEST STRIP USE 1 STRIP ACTIVE THREE TIMES A DAY FOR BLOOD GLUCOSE TESTING Pending Outpatient Medications Status 1) ACCU-CHEK GUIDE (GLUCOSE) METER USE THE METER PENDING DIRECTED NEEDED 2) ACCU-CHEK GUIDE(GLUCOSE)HI/LO CNTRL SOLN USE ONE DROP PENDING DIRECTED NEEDED 3) DICLOFENAC NA 1% TOP GEL APPLY 2-4 GRAMS D IRECTED PENDING TO AFFECTED AREA TWICE A DAY NEEDED FOR PAIN * LIMIT DAILY DOSE TO 8 GRAMS TO UPPER BODY AND 1 6 GRAMS TO LOWER BODY Active Non-VA Medications Status 1) Non-VA ACETAMINOPHEN 500MG TAB 500MG BY MOUTH ACTIVE NEEDED 19 Total Medications No Active Remote Medications for this patient ACTIVE MEDS RECONCILED Med Reconcile done & Med list/teaching document given to Ellington today. Meds/Txmnts reviewed, discussed & renewed/refill ed if needed today. Medications accurate and reviewed with patient. currently reports taking & tolerating medications as direc natividad & prescribed. Reports no adverse reactions or side effects not ed to meds/txmnts. was advised on the importance of taking their medications as directed. Potential side effects and risks, ned g with adverse reactions were also reviewed with the Ellington, especially if medications/treatments are not taken as prescribed. The Risks & Benefit s of their medications/treatments was discussed also during today's visit. Ellington's medication questions were answered to his/her satisfaction. was informed of any noted changes made t o their med/txmnt plan of care during appointment (including indications f or all new medications). Medication changes per plan of care, as noted wi thin this note. Medications/Treatments list(s) were reviewed & c ompared for the Ellington in CPRS included the following: Active medications, Recently medications, Remote data view medications, Non-V A medications. Noted discrepancies with medication list: None, the patient is only taking the med ications listed in CPRS as prescribed. Activity/Exercise Recommendation(s): Exercise Regimen: Recommended education provided to today to initiate/continue a mild/moderate aerobic activity, (such as a simpl e walking regimen, to start with) for at least 10-20 minutes, 3-5 time s per week and then gradually increase the duration overtime. Advise d to stop and seek medical attention if chest pain/discomfort or any other abnormal exertional signs and symptoms were to arise. Dx Instruction & Education: Back pain (chronic), Headache, Hyperlipidemia, Osteoarthritis Today's Pain Level - 6 (08/27/2020 11:43) Pain Control &/or Relief Precautions Reviewed Du ring This Visit. Advised to utilize OTC (ES Tylenol, Alev e, Ibuprofen, Naproxen) pain relievers as needed & directed for pain/dis comfort/swelling relief. As long as they're no allergic or have been told to avoid certain classes of medication(s). Musculoskeletal Pain/Discomfort [place], Educati on & Discussion with today. Ellington was instructed & educated on conservative measures for pain/discomfort control & was advised on pre cautions regarding current musculoskeletal condition(s). Advised against an y abnormal HEAVY weight lifting, prolonged standing, &/or sitting. Avoid twisting and/or turning manuevers that may put at a increased ri sk of worsening pain/discomfort. Avoid movements/manuevers of the following affec natividad area(s): General Joint Pain, Generalized Muscle Pain, Eastman d, Head/Headache, Lower Back, Neck Instructed to avoid impact activities or movemen t(s) that may cause or put undue stressor(s) on affected area(s) &/or joint (s). Avoid lifting/carrying > 10 lbs, as directed by provider. PLAN OF CARE Plan Of Care (P.O.C.) Today's Plans/Orders/Referrals/Discussion: Repeat labs and include the following: BILL, Testosterone, sed rate, crp, iron p rofile RF, uric acid, plus my routine. Referral orders for the following: CT of the brain. Xr's of the neck, bilateral hips & hands, lumbar spine. f/up after labs & imaging completed. advised to work on Dm. This area was briefly dis cussed, Ellington's primary concern during today's appt was his worsen pain/ discomfort, fatigue of entire body, muscles & joints. Ellington was advised during todays visit to matilde dennis w/ current plan of care, except for stated changes above, which have been discussed w/ the the Ellington during today's appointment. --------- Item Ordered START DATE STOP DATE ENTERED PSA WITH FREE PSA REFL AUG 27, 2020@13:02 RHEUMATOID FACTOR AUG 27, 2020@13:02 TESTOSTERONE, TOTAL AUG 27, 2020@13:02 THYROID STIMULATING HO AUG 27, 2020@13:02 URINALYSIS (IRIS) AUG 27, 2020@13:02 URIC ACID AUG 27, 2020@13:02 VITAMIN D (25-HYDROXY) AUG 27, 2020@13:02 C-REACTIVE PROTEIN AUG 27, 2020@13:02 CBC & MORPHOLOGY (WITH AUG 27, 2020@13:01 HEMOGLOBIN A1C AUG 27, 2020@13:01 COMPREHENSIVE METABOLI AUG 27, 2020@13:00 LIPID PANEL AUG 27, 2020@13:00 ANTI-NUCLEAR AB (BILL) AUG 27, 2020@13:00 VITAMIN B-12 AUG 27, 2020@13:00 COMMUNITY CARE-CT SCAN AUG 27, 2020@12:47:17 CT A/FEE BASED OUTSIDE AUG 27, 2020@12:47:17 COMMUNITY CARE-RADIOLO AUG 27, 2020@12:43:39 XRAY (RAD) A/FEE BASED AUG 27, 2020@12:43:39 Text Order: Return to [facility] on or around ( Aug 28, 2020 ) for a total of 1 appointment(s) Prerequisites: Non-fasting Labs Ellington to Rtc to complete recommend labs per V a Pcp Text Order: Return to [facility] on or around ( Aug 28, 2020 ) for a total of 1 appointment(s) Prerequisites: Non-fasting Labs to Rtc to complete recommend labs per V a Pcp DICLOFENAC GEL,TOP AUG 27, 2020@12:34 ACCU-CHECK GUIDE METER AUG 27, 2020@12:11 ACCU-CHEK GUIDE(GLUCOS AUG 27, 2020@12:11 Return To Clinic Appointment: Next Routine Return To Clinic Appointment (RTCA) : Rtca in appx 1 month for next visit With [facility] Appx 30-60 mins was spent in coordination of michelle cheng. Ellington was also informed that they can schedule their future recall appt today before leaving the clinic and they can arr bakari this by stopping at the front desk attendant and talking with the MSA. Reminde d to obtain labs @ least one wk prior to the next RC appt w/ PCP. Annual labs that need obtained prior to next annual visit. (A1c, CBC, CMP, UA, MICROALBUMIN, B12, VIT D, L IPID PANEL, TSH) TESTOSTERONE (MEN ON TESTOSTERONE REPLACEMENT THERAPY). PSA (MEN AGE 40 TO 80 y/o & older) or Hx of Pro state issues. AVS (After Visit Summary): This AVS was entered & printed at the end of tovirgilio ay's visit. Medication & Treatments & Referral Orders were reviewed for i ndication, dosing, duration, and adverse reactions/side effects with the Low mccauley during today's visit. voiced understanding current plan of car e and is in agreement with today's plan. Ellington was involved with the deci raven making during this visit. Questions & Concerns were addressed and a nswered. Care In The Community ([facility]) or Office o f Care in Community (OCC) Information: Ellington was informed about the process of [facility]/O CC, in regards to referrals/consults, that will be submitted on r behalf. Information regarding the [facility]/OCC Department in formation was given to the Ellington today. was informed that onc e the referral(s)/order(s) have been authorized & approved, a representativ e from [facility]/OCC Department will contact them. Informed the Ellington that the [facility] represent ative will make three attempts (#1 - Telephone attempt, #2 - The 14 Da y Letter, #3 - Telephone, final attempt) to coordinate getting the referra l(s)/order(s) arranged with the . If the community service representative is unabl e to coordinate with the within those three attempts, then the re ferral orders will be discontinued and will need to be resubmitted by the [facility] Provider if the referral(s)/order(s) are still recommended for c are. These steps were reviewed & discussed in detail with the Ellington during today's visit, all questions answered & verbal understanding was vo iced by the . Steps: #1 - Initial telephone call, if unsuccessful, en the following. #2 - The '14 Day Letter' will be sent to there h ome address. It informs the Ellington that they have 14 days to contact [facility] to arrange further completion of the referral. If no response to t he 14 day letter, then the final step. #3 - Telephone call. This is the final attempt t o fulfill this referral with the Ellington. If unsuccessful, then the ref erral is cancelled and if still needed by the , then a new refe rral would need to be submitted. Ellington agrees to this noted Plan of Care. All q uestions & concerns brought forth at this time were answered to the best of present knowledge. /es/ NEFTALI PASTOR Nurse Practitioner Signed: 08/27/2020 13:59 Aug 27, 2020 11:44 PRIMARY CARE NURSING NOTE: SILVANA LEMOS [facility] LOCAL TITLE: PLASTER MODEL AND MOLD MAKER NURSING NOTE (T) STANDARD TITLE: PRIMARY CARE NURSING NOTE DATE OF NOTE: AUG 27, 2020@11:44 ENTRY DATE: AUG 27, 2020@11:44:47 AUTHOR: SILVANA LEMOS EXP COSIGNER: URGENCY: STATUS: COMPLETED Patient identification is confirmed by full name , date of and social security number prior to interview and examinati on. Hand washing is completed prior to interview and examination. Allergies/ADR: Patient has answered NKA Allergy list correct (if no, update)? Yes MEDICATION RECONCILIATION Patient taking ASA? No Medication information in the form of a Interview was obtained from the Patient and compared to the medications listed for the p atient in CPRS including: Active medications, Recently medications , Non-VA medications Active and Recently Outpatient Medicatio ns (excluding Supplies): Active Outpatient Medications Status 1) ALOGLIPTIN 12.5MG TAB TAKE ONE TABLET BY MOUT H EVERY ACTIVE DAY FOR DIABETES 2) CARBOXYMETHYLCELLULOSE 0.5% OPH 15ML LUIS INST ILL 1 ACTIVE DROP IN EACH EYE FOUR TIMES A DAY FOR DRY EYES 3) CHOLECALCIF 125MCG (D3-5,000UNIT) CAP TAKE ON E ACTIVE CAPSULE BY MOUTH DAILY 4) FISH OIL 1000MG (500MG DHA/EPA) CAP TAKE TWO CAPSULES ACTIVE BY MOUTH EVERY DAY FOR HYPERLIPIDEMIA. 5) INSULIN,GLARGINE 100 UNIT/ML 3ML SOLOSTR INJE CT 23 ACTIVE UNITS UNDER SKIN AT BEDTIME 6) LISINOPRIL 10MG TABLET TAKE ONE TABLET BY PEPPER TH DAILY ACTIVE TO LOWER BLOOD PRESSURE 7) METFORMIN HCL 1000MG TAB TAKE ONE TABLET BY M OUTH ACTIVE TWICE A DAY FOR DIABETES 8) METHOCARBAMOL 750MG TAB TAKE TWO TABLETS BY M OUTH ACTIVE EVERY 8 HOURS NEEDED FOR MUSCLE SPASMS 9) NAPROXEN 500MG TAB TAKE ONE TABLET BY MOUTH T WICE A ACTIVE DAY FOR PAIN 10) PREGABALIN 150MG ORAL CAP TAKE ONE CAPSULE ( 150MG) BY ACTIVE MOUTH TWICE A DAY FOR DIABETIC NERVE PAIN 11) VENLAFAXINE HCL 75MG 24HR SA CAP TAKE ONE CA PSULE BY ACTIVE MOUTH TWICE A DAY FOR PAIN MANAGEMENT / DEPRESS ION 12) ZZ ACCU-CHEK DARCY PLUS(GLU) TEST STRIP USE 1 STRIP ACTIVE THREE TIMES A DAY FOR BLOOD GLUCOSE TESTING Active Non-VA Medications Status 1) Non-VA ACETAMINOPHEN 500MG TAB 500MG BY MOUTH ACTIVE NEEDED 2) Non-VA AMOXICILLIN 875/CLAV K 125MG TAB 1 TAB LET BY ACTIVE MOUTH TWICE A DAY 14 Total Medications No Active Remote Medications for this patient IDENTIFIED MEDICATION DISCREPANCIES INCLUDED AND PROVIDER NOTIFIED: None, the patient is only t aking the medications listed in CPRS as prescribed. Age:54 Height:68 in [172.7 cm] (02/20/2015 10:07) Weight:210 lb [95.5 kg] (08/27/2020 11:39) VITALS Temperature:96.7 F [35.9 C] (08/27/2020 11:39) BP:129/89 (08/27/2020 11:44) Pulse:92 (08/27/2020 11:39) Resp:20 (12/07/2018 16:01) SpO2:93% DATE: Aug@11:42:52; [X]On room air [ ]On L/min. 02 BMI:32* PAIN (scale 0-10):6 (08/27/2020 11:43) Is this pain level tolerable? Pain Location:Left hip, hands, feet CC:6 [place] APPT, NECK AND BACK DISCOMFORT, LEFT HIP Clinical Reminders Done Today Advance Directive Education: Patient has Advance Directive but is not on samantha e here. Patient was instructed to bring in. Alcohol Use Screen (AUDIT-C): Alcohol Screen: SCREEN FOR ALCOHOL (AUDIT-C) An alcohol screening test (AUDIT-C) was negativ e (score=3). 1. How often did you have a drink containing al cohol in the past year? Two to three times per week 2. How many drinks containing alcohol did you h ave on a typical day when you were drinking in the past year? One or two drinks 3. How often did you have six or more drinks on one occasion in the past year? Never Learning Assessment: Ability to Learn: Patient indicates interest in learning. Learning Preferences/Potential Barriers: Patient prefers learning in a one to one, direc t instruction method. Are you registered for [employer] ([employer] [place])? No - Are you interested in registering? No If ' yes' please hand [place] [employer] brochure. Degree of Understanding: /caregiver verbalized understanding of i nformation given. Primary Language and Language Preference: Indonesian Travel and Symptom Screen: The patient indicated [...] chickenpox, or zoster in last 30 days. Depression Screening: Perform PHQ-2 A PHQ-2 screen was performed. The score was 1 w hich is a negative screen for depression. Over the past two weeks, how often have you bee n bothered by the following problems? 1. Little interest or pleasure in doing things Not at all 2. Feeling down, depressed, or hopeless Several days Tobacco Use Screening: The patient uses tobacco every day. The patient does not use tobacco within 30 naz julio of waking up. The patient has been smoking or using tobacco f or thirty years or more. Patient was advised to quit smoking and/or usin g tobacco. Discussion with patient included: - Quitting smoking or tobacco use is one of the most important things you can do to protect and improve your h [facility] and [place] has the resources to support you. - Set a quit date when you are ready to quit. - Get support from your family and friends. - Review any past quit attempts- What helped? W hat didn't? - On the day you plan to quit, get rid of all c igarettes and tobacco products from your home, car or work. - Using a combination of behavioral counseling or other support strategies and FDA-approved cessation medicatio ns is the most effective way to ensure success in quitting. Patient was offered Behavioral Counseling and o ther support strategies to assist with quitting. Discussion with patient i ncluded: - Behavioral counseling or other support sol alcantara greatly increases your chances of successfully quitting smoking or tobacco use by helping you develop a quit plan and providing support and other strategies to make behavioral changes to help you quit. - [place] has a number of behavioral counseling opti ons to help you with quitting, including: * Provide information about the facility smokin g or tobacco use treatment options or clinics * [place]'s national quitline, 2-327-ZXTP-VET, with counseling available Tuesday-Tuesday The patient was not interested in receiving add itional information about how to use the treatment options karina naqvi Patient was offered FDA-approved cessation medi cations. Discussion with patient included: - Medications for Nicotine replacement therapy such as the patch, gum or lozenge, and other medications sandoval ch as varenicline or bupropion, can play an important role in the initial weeks and months after you quit smoking or tobacco us e. - Medications help with cravings and withdrawal symptoms and they greatly increase your chances of successfully q uitting. The patient was not interested in a prescriptio n for tobacco cessation medications. Diabetic Pedal Pulse Exam: Patient received diab-pedal pulse exam at this encounter. Result of Exam: Normal EDUCATION [place] was educated on proper foot care and da hemant examination of feet. Educational materials were made available to Gaby burton regarding appropriate foot care hygiene. Level of Understanding: ... Verbalizes Understanding Diabetic Sensory Foot Exam: Patient had diab-sensory foot exam completed by monofilament at this encounter. Result of Exam: Abnormal Comment: DECREASED SENSORY BALL OF FEET TO TOES BILATERALLY EDUCATION [place] was educated on proper foot care and da hemant examination of feet. Educational materials were made available to Gaby burton regarding appropriate foot care hygiene. Level of Understanding: ... Verbalizes Understanding Diabetic Visual Foot Exam: Patient had diab-visual foot exam at this [facility] nter. Result of Exam: Normal EDUCATION [place] was educated on proper foot care and da hemant examination of feet. Educational materials were made available to Gaby burton regarding appropriate foot care hygiene. Level of Understanding: ... Verbalizes Understanding Prostate Counseling: Patient received prostate developmental training counselor risk/benefits at this encounter. Level of Understanding: Good Suicide Screen: C-SSRS Screening [place] Suicide Severity Rating Scale (C-SSRS) screener 1. Over the past month, have you wished you wer e or wished you could go to sleep and not wake up? No 2. Over the past month, have you had any actual thoughts of killing yourself? No 3. Over the past month, have you been thinking about how you might do this? Response not required due to responses to other questions. 4. Over the past month, have you had these thou ghts and had some intention of acting on them? Response not required due to responses to other questions. 5. Over the past month, have you started to wor k out or worked out the details of how to kill yourself? Response not required due to responses to other questions. 6. If yes, at any time in the past month did yo u intend to carry out this plan? Response not required due to responses to other questions. 7. In your lifetime, have you ever done anythin g, started to do anything, or prepared to do anything to end you r life (for example, collected pills, obtained a gun, gave away valu [place], went to the roof but didn't jump)? No 8. If YES, was this within the past 3 months? Response not required due to responses to other questions. /janet/ SILVANA LEMOS LPN Signed: 08/27/2020 12:00
--- OUTSIDE RECORDS SUMMARY | 2021-08-18 20:46 | External Medical Summary | Encounter Summary ---
:1965 Author Organization Department of [facility] rs Address [address] [place] [address] Care Team Providers Name Role Phone SANDRA GASCA Primary Care Provider Unavailable Selected Encounter This section includes the information on record at [place] for the Encounter. Date/Time Encounter Type Encounter Description Reason Provider Source Oct 29, 2020 12:00 Outpatient Encounter COMMUNITY CARE PM CONSULT IHE Encounter Template Text not used by [place] Plan of Treatment: Future Appointments (+ 6 months) and Future Tests (+/- 45 days) The Plan of Treatment section includes future care activities for the patient from all [place] treatmentfacilities. This section includes future appointments and future orders which are active, pending orscheduled.Future Appointments This section includes appointments that were scheduled to occur 6 months from the date of the Encounter, up to a maximum of 20 appointments. The data comes from all [place] treatment facilities. Appointment Date/Time Appointment Type Appointment Facili ty Name Nov 03, 2020 11:30 AM AMBULATORY - MEDICINE [facility] Nov 20, 2020 03:00 PM AMBULATORY - MEDICINE [facility] Nov 27, 2020 12:30 PM AMBULATORY - MEDICINE [facility] Feb 10, 2021 08:00 AM AMBULATORY - MEDICINE [facility] Feb 23, 2021 10:30 AM AMBULATORY - MEDICINE [facility] Apr 08, 2021 02:00 PM AMBULATORY - MEDICINE [facility] Apr 10, 2021 10:00 AM AMBULATORY - MEDICINE [facility] Apr 10, 2021 10:30 AM AMBULATORY - MEDICINE [facility] Apr 13, 2021 08:15 AM AMBULATORY - MEDICINE [facility] Apr 15, 2021 03:30 PM AMBULATORY - MEDICINE [facility] Apr 21, 2021 08:00 AM AMBULATORY - MEDICINE [facility] Radiology Reports: +/- 30 days of the [...] the Encounter. The data comes from all [place] treatment facilities. Date/Time Radiology Report Provider Source Oct 29, 2020 01:28 PM HIPS BILAT 5V: LISETTE ESTEBAN [id number] -NOV 16 4 [facility] Exm Date: OCT 29, 2020@13:28 Req Phys: SHARMIN SUH Loc: OUTSIDE WW RAD -X (Req'g Loc) Im Loc: [place] [id number] Service: Unknown (Case 86 COMPLETE) HIPS BILAT 5V (RAD Detailed) CPT:28436 Reason for Study: OUTSIDE STUDY IMPORTED ARB Clinical History: OUTSIDE STUDY IMPORTED ARB Report Status: Electronically Filed Date Report ed: Report: Impression: OUTSIDE STUDY IMPORTED Primary Diagnostic Code: VERIFIED BY: / *ELECTRONICALLY FILED* Oct 29, 2020 01:24 PM SPINE LUMBOSACRAL MIN 2 VIEWS: LISETTE WHATLEY [id number] -NOV 16 4 M [facility] Exm Date: OCT 29, 2020@13:24 Req Phys: SHARMIN SUH Loc: OUTSIDE WW RAD -X (Req'g Loc) Img Loc: [place] 86 Service: Unknown (Case 87 COMPLETE) SPINE LUMBOSACRAL MIN 2 VIEWS (RAD Detailed) CPT:29687 Reason for Study: OUTSIDE STUDY IMPORTED ARB Clinical History: OUTSIDE STUDY IMPORTED ARB Report Status: Electronically Filed Date Report ed: Report: Impression: OUTSIDE STUDY IMPORTED Primary Diagnostic Code: VERIFIED BY: / *ELECTRONICALLY FILED* Oct 29, 2020 01:18 PM HAND LEFT: LISETTE ESTEBAN [id number] -NOV 16 4 M [facility] Exm Date: OCT 29, 2020@13:18 Req Phys: SHARMIN SUH Loc: OUTSIDE WW RAD -X (Req'g Loc) Img Loc: [place] [address] Service: Unknown (Case 88 COMPLETE) HAND LEFT (RAD Detailed) CPT: 75542 CPT Modifiers : LT LEFT SIDE Reason for Study: OUTSIDE STUDY IMPORTED ARB Clinical History: OUTSIDE STUDY IMPORTED ARB Report Status: Electronically Filed Date Report ed: Report: Impression: OUTSIDE STUDY IMPORTED Primary Diagnostic Code: VERIFIED BY: / *ELECTRONICALLY FILED* Oct 29, 2020 01:17 PM HAND RIGHT: LISETTE ESTEBAN ZAYDA [id number] -NOV 16 4 M [facility] Exm Date: OCT 29, 2020@13:17 Req Phys: SHARMIN SUH Loc: OUTSIDE WW RAD -X (Req'g Loc) Img Loc: [place] [address] Service: Unknown (Case 89 COMPLETE) HAND RIGHT (RAD Detailed) CPT :35133 CPT Modifiers : RT RIGHT SIDE Reason for Study: OUTSIDE STUDY IMPORTED ARB Clinical History: OUTSIDE STUDY IMPORTED ARB Report Status: Electronically Filed Date Report ed: Report: Impression: OUTSIDE STUDY IMPORTED Primary Diagnostic Code: VERIFIED BY: / *ELECTRONICALLY FILED* Oct 29, 2020 01:07 PM SPINE CERVICAL MIN 4 VIEWS: LUKE Miguel VELASQUEZLISETTE MULLER ZAYDA [id number] -NOV 16 4 M [facility] Exm Date: OCT 29, 2020@13:07 Req Phys: SHARMIN SUH Loc: OUTSIDE WW RAD -X (Req'g Loc) Img Loc: [place] 86 Service: Unknown (Case 120 COMPLETE) SPINE CERVICAL MIN 4 VIEWS ( RAD Detailed) CPT:94348 Reason for Study: OUTSIDE STUDY IMPORTED ARB Clinical History: OUTSIDE STUDY IMPORTED ARB Report Status: Electronically Filed Date Report ed: Report: Impression: OUTSIDE STUDY IMPORTED Primary Diagnostic Code: VERIFIED BY: / *ELECTRONICALLY FILED* Oct 29, 2020 12:[address] HEAD WITHOUT CONTRAST: LISETTE WHATLEY [id number] -NOV 16 4 M [facility] Exm Date: OCT 29, 2020@12:45 Req Phys: NEFTALI PASTOR Loc: OUTSIDE CT- X (Req'g Loc) Img Loc: OUTSIDE [facility] CT Service: Unknown (Case 146 COMPLETE) CT HEAD WITHOUT CONTRAST (CT Detailed) CPT:99006 Reason for Study: Outside Study Imported ART Clinical History: Outside Study Imported ART Report Status: Electronically Filed Date Report ed: Report: Impression: OUTSIDE STUDY IMPORTED VERIFIED BY: / *ELECTRONICALLY FILED* Encounter Notes: All associated encounter notes This section contains the clinical notes associated to the Encounter. Date/Time Encounter Note(s) Provider Source Oct 29, 2020 12:00 PM NONVA CONSULT: AIDEE DAVILA LOCAL TITLE: COMMUNITY CARE-CONSULT RESULT NOTE [facility] STANDARD TITLE: NONVA CONSULT DATE OF NOTE: OCT 29, 2020@12:00 ENTRY DATE: NOV 14, 2020@15:27:22 AUTHOR: AIDEE DAVILA EXP COSIGNER: URGENCY: STATUS: COMPLETED The following Non VA Care consult has be en completed. See scanned document for report. NON VA Care Consult Results Radiology Comment: [facility] / X-RAY LUMBAR SPINE /es/ AIDEE DAVILA STUDIO COORDINATOR Signed: 11/14/2020 15:29 Oct 29, 2020 12:00 PM NONVA CONSULT: [place] STEARNS LOCAL TITLE: COMMUNITY CARE-CONSULT RESULT NOTE [facility] STANDARD TITLE: NONVA CONSULT DATE OF NOTE: OCT 29, 2020@12:00 ENTRY DATE: JANUARY 07, 2021@07:24:37 AUTHOR: [place] STEARNS EXP COSIGNER: URGENCY: STATUS: COMPLETED The following Non VA Care consult has been compl eted. See scanned document for report. NON VA Care Consult Results [facility] / DRAD/HIPS, BILAT 3 - 4 VIEWS NEFTALI PASTOR NP DOS: 10/29/2020 /janet/ [place] STEARNS CONTRACT SCANNER-ISSU Signed: 01/07/2021 07:25
--- OUTSIDE RECORDS SUMMARY | 2021-08-18 20:46 | External Medical Summary | Encounter Summary ---
:1965 Author Organization Department [facility] Address [address] [place] [address] Care Team Providers Name Role Phone SANDRA GASCA Primary Care Provider Unavailable Selected Encounter This section includes the information on record at MD for the Encounter. Date/Time Encounter Type Encounter Reason Provider Source Description Nov 03, 2020 Outpatient TELEPHONE PRIMARY ICD-10-CM Z71.2 JANE PASTOR 11:30 AM Encounter CARE Person consulting L for explanation of exam or test findings with Provider Comments: Explanation of Exam or Test Finding IHE Encounter Template Text not used by MD Assessments - Encounter Diagnoses This section includes the primary and secondary diagnoses documented for the Encounter. Date/Time Primary/Secondary Diagnosis Name Provider Source Diagnosis Nov 03, 2020 [facility] for explanation CLINIC of exam or test findings Nov 03, 2020 SECONDARY [facility]algia[facility] unspecified CLINIC Nov 03, 2020 SECONDARY Headache[facility] AM unspecified CLINIC Nov 03, 2020 SECONDARY Low back pain [facility]30 AM [facility] Nov 03, 2020 SECONDARY Pain in [facility] AM unspecified hand CLINIC Plan of Treatment: Future Appointments (+ [...] 20 appointments. The data comes from all MD treatment [facility]. Appointment Date/Time Appointment Type Appointment Facili ty Name Nov 20, 2020 03:00 PM AMBULATORY - MEDICINE [facility] Nov 27, 2020 12:30 PM AMBULATORY - MEDICINE [facility] Feb 10, 2021 08:00 AM AMBULATORY - MEDICINE [facility] Feb 23, 2021 10:30 AM AMBULATORY - MEDICINE [facility] Apr 08, 2021 02:00 PM AMBULATORY - MEDICINE [facility] Apr 10, 2021 10:00 AM AMBULATORY - MEDICINE [facility] Apr 10, 2021 10:30 AM AMBULATORY - MEDICINE [facility] Apr 13, 2021 08:15 AM AMBULATORY - MEDICINE [facility] Apr 15, 2021 03:30 PM AMBULATORY - MEDICINE [facility] Apr 21, 2021 08:00 AM AMBULATORY - MEDICINE [facility] May 04, 2021 09:40 AM AMBULATORY - NONE [facility] Active, Pending, and Scheduled Orders This section includes a listing of several types of active, pending, and scheduled orders, including clinic medications orders, diagnostic test orders, procedure orders and consult orders; where the start date of the order is 45 days before the date of the Encounter or 45 days after the date of the Encounter. The [facility] Test Date/Time Test Type Test Details Facility Name December 14, 2020 10:09 AM Consult Order [facility]ITY [facility]ARE-[facility] Cons [employer] Machine Operator's Choice Social History: Smoking Status (Most current) and Tobacco Use (All prior to encounter date) This section includes the most current, and the historical, smoking and tobacco-related health factors from the MD facility where the Encounter took place.Current Smoking Status This section includes the most current smoking, or tobacco-related health factor, from the MD facility where the Encounter took place. Date/Time Current Smoking Status Comment Facility Aug 27, 2020 11:30 AM VA-TOBACCO USER EVERY DAY [facility] Tobacco Use History This section includes a history of the smoking, or tobacco- related health factors, that were collected on or before the date of the Encounter. The data comes from the MD facility where the Encounter took place. 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 [facility] Aug 27, 2020 11:30 AM VA-TOBACCO USE MED NO [facility] Aug 27, 2020 11:30 AM VA-TOBACCO USER EVERY DAY [facility] Sep 08, 2018 10:18 AM VA-TOBACCO USE 30 YEARS OR [facility] MORE Sep 08, 2018 10:18 AM VA-TOBACCO USE ADVICE [facility] Sep 08, 2018 10:18 AM 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 [facility] Sep 08, 2018 10:18 AM VA-TOBACCO USE MED NO [facility] Sep 08, 2018 10:18 AM VA-TOBACCO USE WI 30 MIN [facility] Sep 08, 2018 10:18 AM VA-TOBACCO USER EVERY DAY [facility] Oct 20, 2017 09:18 AM CURRENT TOBACCO USER [facility] Oct 20, 2017 09:18 AM TOBACCO SCREEN COMPLETED [facility] No, not willing to quit now Oct 11, 2016 09:57 AM CURRENT TOBACCO USER [facility] Oct 11, 2016 09:57 AM TOBACCO MEDICATION [facility]ER [facility] INTERVENTION Oct 11, 2016 09:57 AM TOBACCO SCREEN COMPLETED [facility] No, not willing to quit now Feb 20, 2015 10:04 AM CURRENT TOBACCO USER [facility] Feb 20, 2015 10:04 AM TOBACCO SCREEN COMPLETED [facility] No, not willing to quit now Jan 25, 2014 08:44 AM CURRENT TOBACCO USER [facility] Jan 25, 2014 08:44 AM TOBACCO SCREEN COMPLETED [facility] No, not willing to quit now [...] the Encounter. The data comes from all MD treatment facilities. Date/Time Radiology Report Provider Source Oct 29, 2020 01:28 PM HIPS BILAT 5V: LISETTE ESTEBAN ZAYDA [id number] -NOV 16 4 M [facility] Exm Date: OCT 29, 2020@13:28 Req Phys: SHARMIN SUH Loc: OUTSIDE WW RAD -X (Req'g Loc) Img Loc: [place] [address] Service: Unknown (Case 86 COMPLETE) HIPS BILAT 5V (RAD Detailed) CPT:45800 Reason for Study: OUTSIDE STUDY IMPORTED ARB Clinical History: OUTSIDE STUDY IMPORTED ARB Report Status: Electronically Filed Date Report ed: Report: Impression: OUTSIDE STUDY IMPORTED Primary Diagnostic Code: VERIFIED BY: / *ELECTRONICALLY FILED* Oct 29, 2020 01:24 PM SPINE LUMBOSACRAL MIN 2 VIEWS: LUKE MORTENSENINWRLISETTE HERRING ZAYDA [id number] -NOV 16 4 M [facility] Exm Date: OCT 29, 2020@13:24 Req Phys: SHARMIN SUH Loc: OUTSIDE WW RAD -X (Req'g Loc) Img Loc: [place] [address] Service: Unknown (Case 87 COMPLETE) SPINE LUMBOSACRAL MIN 2 VIEWS (RAD Detailed) CPT:54693 Reason for Study: OUTSIDE STUDY IMPORTED ARB Clinical History: OUTSIDE STUDY IMPORTED ARB Report Status: Electronically Filed Date Report ed: Report: Impression: OUTSIDE STUDY IMPORTED Primary Diagnostic Code: VERIFIED BY: / *ELECTRONICALLY FILED* Oct 29, 2020 01:18 PM HAND LEFT: LUKE Robertson Daily BEALLISETTE PRIEST [id number] -NOV 16 4 M [facility] Exm Date: OCT 29, 2020@13:18 Req Phys: SHARMIN SUH Loc: OUTSIDE WW RAD -X (Req'g Loc) Img Loc: [facility] 86 Service: Unknown (Case 88 COMPLETE) HAND LEFT (RAD Detailed) CPT: 81240 CPT Modifiers : LT LEFT SIDE Reason for Study: OUTSIDE STUDY IMPORTED ARB Clinical History: OUTSIDE STUDY IMPORTED ARB Report Status: Electronically Filed Date Report ed: Report: Impression: OUTSIDE STUDY IMPORTED Primary Diagnostic Code: VERIFIED BY: / *ELECTRONICALLY FILED* Oct 29, 2020 01:17 PM HAND RIGHT: LISETTE ESTEBAN [id number] -NOV 16 4 M [facility] Exm Date: OCT 29, 2020@13:17 Req Phys: SHARMIN SUH Loc: OUTSIDE WW RAD -X (Req'g Loc) Img Loc: [place] [address] Service: Unknown (Case 89 COMPLETE) HAND RIGHT (RAD Detailed) CPT :24440 CPT Modifiers : RT RIGHT SIDE Reason for Study: OUTSIDE STUDY IMPORTED ARB Clinical History: OUTSIDE STUDY IMPORTED ARB Report Status: Electronically Filed Date Report ed: Report: Impression: OUTSIDE STUDY IMPORTED Primary Diagnostic Code: VERIFIED BY: / *ELECTRONICALLY FILED* Oct 29, 2020 01:07 PM SPINE CERVICAL MIN 4 VIEWS: LISETTE WHATLEY [id number] -NOV 16 4 M [facility] Exm Date: OCT 29, 2020@13:07 Req Phys: SHARMIN SUH Loc: OUTSIDE WW RAD -X (Req'g Loc) Img Loc: [facility] 86 Service: Unknown (Case 120 COMPLETE) SPINE CERVICAL MIN 4 VIEWS ( RAD Detailed) CPT:94031 Reason for Study: OUTSIDE STUDY IMPORTED ARB Clinical History: OUTSIDE STUDY IMPORTED ARB Report Status: Electronically Filed Date Report ed: Report: Impression: OUTSIDE STUDY IMPORTED Primary Diagnostic Code: VERIFIED BY: / *ELECTRONICALLY FILED* Oct 29, 2020 12:[address] HEAD WITHOUT CONTRAST: LISETTE WHATLEY [id number] -NOV 16, 196 4 M [facility] Exm Date: OCT 29, 2020@12:45 Req Phys: NEFTALI PASTOR Pat Loc: OUTSIDE WW CT- X (Req'g Loc) Img Loc: OUTSIDE [facility] CT Service: Unknown (Case 146 COMPLETE) CT HEAD WITHOUT CONTRAST (CT Detailed) CPT:35299 Reason for Study: Outside Study Imported ART Clinical History: Outside Study Imported ART Report Status: Electronically Filed Date Report ed: Report: Impression: OUTSIDE STUDY IMPORTED VERIFIED BY: / *ELECTRONICALLY FILED* Encounter Notes: All associated encounter notes This section contains the clinical notes associated to the Encounter. Date/Time Encounter Note(s) Provider Source Nov 03, 2020 12:29 PM NO SHOW NOTE: NEFTALI PASTOR [facility] LOCAL TITLE: NO SHOW NOTE STANDARD TITLE: NO SHOW NOTE DATE OF NOTE: NOV 03, 2020@12:29 ENTRY DATE: NOV 03, 2020@12:29:40 AUTHOR: NEFTALI PASTOR EXP COSIGNER: URGENCY: STATUS: COMPLETED SUBJECT: f/up to discuss imaging results. NO SHOW NOTE Has ADDENDA PROVIDER VISIT -- NO SHOW NOTE LISETTE BEAL 54 year old MALE. Patient identification is confirmed by full name , date of and the last four of their social security number was verifie d prior to interview & discussion at the start of today's appointment. APPOINTMENT TYPE: Telephone REASON FOR TODAY'S VISIT: Review imaging results . NO ANSWER: This scheduled visit resulted in a No Answer/No Show, see below for reason(s). Generic message was left on [place]'s voicemail. Instructed on to call [phone] to resched ule this Tele-Visit Appt. Do not call # on their NAFISA log. /es/ NEFTALI PASTOR Nurse Practitioner Signed: 11/03/2020 12:31 11/06/2020 ADDENDUM STATUS: COMPLETED Please attempt to reschedule tele appt. /es/ SILVANA LEMOS LPN Signed: 11/06/2020 12:58 Receipt Acknowledged By: 11/07/2020 15:19 /es/ Freddy SILVA MSA 11/07/2020 ADDENDUM STATUS: COMPLETED THIS HAS BEEN RESCHEDULED /es/ Freddy SILVA MSA Signed: 11/07/2020 15:19
--- OUTSIDE RECORDS SUMMARY | 2021-08-18 20:46 | External Medical Summary | Encounter Summary ---
:1965 Author Organization [facility] Address [address] [place] [address] Care Team Providers Name Role Phone SANDRA GASCA Primary Care Provider Unavailable Selected Encounter This section includes the information on record at [place] for the Encounter. Date/Time Encounter Type Encounter Description Reason Provider Source Nov 06, 2020 02:17 Outpatient Encounter COMMUNITY CARE PM CONSULT IHE Encounter Template Text not used by [place] Plan of Treatment: Future Appointments (+ 6 months) and Future Tests (+/- 45 days) The Plan of Treatment section includes future care activities for the patient from all [place] treatmentfacilities. This section includes future appointments and future orders which are active, pending orscheduled.Future Appointments This section includes appointments that were scheduled to occur 6 months from the date of the Encounter, up to a maximum of 20 appointments. The data comes from all [place] treatment facilities. Appointment Date/Time Appointment Type Appointment Facili ty Name Nov 20, 2020 03:00 PM AMBULATORY - MEDICINE [facility] Nov 27, 2020 12:30 PM AMBULATORY - MEDICINE [facility] Feb 10, 2021 08:00 AM AMBULATORY - MEDICINE [facility] PORT[facility]O [facility] Feb 23, 2021 10:30 AM AMBULATORY - MEDICINE [facility] Apr 08, 2021 02:00 PM AMBULATORY - MEDICINE [facility] Apr 10, 2021 10:00 AM AMBULATORY - MEDICINE [facility] Apr 10, 2021 10:30 AM AMBULATORY - MEDICINE [facility] Apr 13, 2021 08:15 AM AMBULATORY - MEDICINE [facility] Apr 15, 2021 03:30 PM AMBULATORY - MEDICINE [facility] Apr 21, 2021 08:00 AM AMBULATORY - MEDICINE [facility] AilynDaily PORTILLO [facility] May 04, 2021 09:40 AM AMBULATORY - NONE [facility] AilynDaily SANCHEZ [facility] Active, Pending, and Scheduled Orders This section includes a listing of several types of active, pending, and scheduled orders, including clinic medications orders, diagnostic test orders, procedure orders and consult orders; where the start date of the order is 45 days before the date of the Encounter or 45 days after the date of the Encounter. The data comes from all [facility]. Test Date/Time Test Type Test Details Facility Name December 14, 2020 10:09 AM Consult Order COMMUNITY CARE-[facility] Cons Pediatric Dental Hygienist's Choice Radiology Reports: +/- 30 days of [...] the Encounter. The data comes from all [facility]. Date/Time Radiology Report Provider Source Oct 29, 2020 01:28 PM HIPS BILAT 5V: LUKE CASTELLANOS NILADMLISETTE ZAYDA [id number] -[birth year], [birth year] 4 M [facility] Exm Date: OCT 29, 2020@13:28 Req Phys: SHARMIN SUH Loc: OUTSIDE WW RAD -X (Req'g Loc) Img Loc: [facility]ILD[facility] 86 Service: Unknown (Case 86 COMPLETE) HIPS BILAT 5V (RAD Detailed) CPT:60029 Reason for Study: OUTSIDE STUDY IMPORTED ARB Clinical History: OUTSIDE STUDY IMPORTED ARB Report Status: Electronically Filed Date Report ed: Report: Impression: OUTSIDE STUDY IMPORTED Primary Diagnostic Code: VERIFIED BY: / *ELECTRONICALLY FILED* Oct 29, 2020 01:24 PM SPINE LUMBOSACRAL MIN 2 VIEWS: LISETTE WHATLEY [id number] -NOV 16 4 M [facility] Exm Date: OCT 29, 2020@13:24 Req Phys: SHARMIN SUH Loc: OUTSIDE WW RAD -X (Req'g Loc) Img Loc: [facility]ILD[facility] 86 Service: Unknown (Case 87 COMPLETE) SPINE LUMBOSACRAL MIN 2 VIEWS (RAD Detailed) CPT:72155 Reason for Study: OUTSIDE STUDY IMPORTED ARB Clinical History: OUTSIDE STUDY IMPORTED ARB Report Status: Electronically Filed Date Report ed: Report: Impression: OUTSIDE STUDY IMPORTED Primary Diagnostic Code: VERIFIED BY: / *ELECTRONICALLY FILED* Oct 29, 2020 01:18 PM HAND LEFT: LISETTE ESTEBAN ZAYDA [id number] -NOV 16 4 M [facility] Exm Date: OCT 29, 2020@13:18 Req Phys: SHARMIN SUH Loc: OUTSIDE WW RAD -X (Req'g Loc) Img Loc: [place] [address] Service: Unknown (Case 88 COMPLETE) HAND LEFT (RAD Detailed) CPT: 35723 CPT Modifiers : LT LEFT SIDE Reason for Study: OUTSIDE STUDY IMPORTED ARB Clinical History: OUTSIDE STUDY IMPORTED ARB Report Status: Electronically Filed Date Report ed: Report: Impression: OUTSIDE STUDY IMPORTED Primary Diagnostic Code: VERIFIED BY: / *ELECTRONICALLY FILED* Oct 29, 2020 01:17 PM HAND RIGHT: LISETTE ESTEBAN [id number] -NOV 16 4 M [facility] Exm Date: OCT 29, 2020@13:17 Req Phys: SHARMIN SUH Loc: OUTSIDE WW RAD -X (Req'g Loc) Img Loc: [facility]ILD[facility] 86 Service: Unknown (Case 89 COMPLETE) HAND RIGHT (RAD Detailed) CPT :07211 CPT Modifiers : RT RIGHT SIDE Reason for Study: OUTSIDE STUDY IMPORTED ARB Clinical History: OUTSIDE STUDY IMPORTED ARB Report Status: Electronically Filed Date Report ed: Report: Impression: OUTSIDE STUDY IMPORTED Primary Diagnostic Code: VERIFIED BY: / *ELECTRONICALLY FILED* Oct 29, 2020 01:07 PM SPINE CERVICAL MIN 4 VIEWS: LISETTE WHATLEY ZAYDA [id number] -NOV 16 4 M [facility] Exm Date: OCT 29, 2020@13:07 Req Phys: SHARMIN SUH Loc: OUTSIDE RAD -X (Req'g Loc) Img Loc: [place] [address] Service: Unknown (Case 120 COMPLETE) SPINE CERVICAL MIN 4 VIEWS ( RAD Detailed) CPT:42481 Reason for Study: OUTSIDE STUDY IMPORTED ARB Clinical History: OUTSIDE STUDY IMPORTED ARB Report Status: Electronically Filed Date Report ed: Report: Impression: OUTSIDE STUDY IMPORTED Primary Diagnostic Code: VERIFIED BY: / *ELECTRONICALLY FILED* Oct 29, 2020 12:[address] HEAD WITHOUT CONTRAST: LISETTE WHATLEY ZAYDA [id number] -NOV 16 4 M [facility] Exm Date: OCT 29, 2020@12:45 Req Phys: NEFTALI PASTOR Loc: OUTSIDE WW CT- X (Req'g Loc) Img Loc: OUTSIDE [facility] CT Service: Unknown (Case 146 COMPLETE) CT HEAD WITHOUT CONTRAST (CT Detailed) CPT:65354 Reason for Study: Outside Study Imported ART Clinical History: Outside Study Imported ART Report Status: Electronically Filed Date Report ed: Report: Impression: OUTSIDE STUDY IMPORTED VERIFIED BY: / *ELECTRONICALLY FILED* Encounter Notes: All associated encounter notes This section contains the clinical notes associated to the Encounter. Date/Time Encounter Note(s) Provider Source Nov 06, 2020 02:17 ADMINISTRATIVE NOTE: JUAN CARLOS BAEZ III LOCAL TITLE: TELEPHONE CONTACT CALL CENTER ADMTorrey CASTELLANOS [facility] STANDARD TITLE: ADMINISTRATIVE NOTE DATE OF NOTE: NOV 06, 2020@14:17:03 ENTRY DATE: NOV 06, 2020@14:19:47 AUTHOR: JUAN CARLOS BAEZ III EXP COSIGNER: URGENCY: STATUS: COMPLETED TELEPHONE CONTACT CALL CENTER ADMIN Has ADD ENDA The following identifiers were used to verify th is patient: . SSN. The patient, LISETTE BEAL ([id number]) Ph one: called the call center. Contact Type of call: V20 PACT MSG. Comments: [place] called to request a telephone appointmen t with PCP. "I would like to go over CT and x-ray results." Demographics verified. Author: JUAN CARLOS BAEZ III Evaluation/Management Code: HC PRO PHONE CALL 5- 10 MIN ([id number]). Starting at: 11/06/2020 @ 2:17:03 PM Ending at: 11/06/2020 @ 2:19:34 PM Length: 2 minutes. Caller Area: [address] Chief Complaint: Not applicable to call. Caller Response: V20 RETURN CALL Caller/[place] verbalize understanding; acknowle dges message. Patient's Email Address: [email or web address] Class Code: Other specified counseling. /chelsea BAEZ III/ELE Visn 20 call center Signed: 11/06/2020 14:19 Receipt Acknowledged By: 11/06/2020 15:44 /chelsea SILVA MSA 11/06/2020 ADDENDUM STATUS: COMPLETED CALL PLACED TO APPOINTMENT SCHEDULED. /chelsea SILVA MSA Signed: 11/06/2020 15:39
--- OUTSIDE RECORDS SUMMARY | 2021-08-18 20:46 | External Medical Summary | Encounter Summary ---
:1965 Author Organization [facility] Address [address] [place] [address] Care Team Providers Name Role Phone SANDRA GASCA Primary Care Provider Unavailable Selected Encounter This section includes the information on record at [place] for the Encounter. Date/Time Encounter Type Encounter Description Reason Provider Source Oct 29, 2020 09:00 Outpatient Encounter COMMUNITY CARE AM CONSULT IHE Encounter Template Text not used by [place] Plan of Treatment: Future Appointments (+ 6 months) and Future Tests (+/- 45 days) The Plan of Treatment section includes future care activities for the patient from all [place] treatmentfacilities. This section includes future appointments and future orders which are active, pending orscheduled.Future Appointments This section includes appointments that were scheduled to occur 6 months from the date of the Encounter, up to a maximum of 20 appointments. The data comes from all [place] treatment facilities. Appointment Date/Time Appointment Type Appointment Facili ty Name Nov 03, 2020 11:30 AM AMBULATORY - MEDICINE [facility] Nov 20, 2020 03:00 PM AMBULATORY - MEDICINE [facility] Nov 27, 2020 12:30 PM AMBULATORY - MEDICINE [facility] Feb 10, 2021 08:00 AM AMBULATORY - MEDICINE [facility]O [facility] Feb 23, 2021 10:30 AM AMBULATORY - MEDICINE [facility] Apr 08, 2021 02:00 PM AMBULATORY - MEDICINE [facility] Apr 10, 2021 10:00 AM AMBULATORY - MEDICINE [facility] Apr 10, 2021 10:30 AM AMBULATORY - MEDICINE [facility] Apr 13, 2021 08:15 AM AMBULATORY - MEDICINE [facility] Apr 15, 2021 03:30 PM AMBULATORY - MEDICINE [facility] Apr 21, 2021 08:00 AM AMBULATORY - MEDICINE [facility] Radiology Reports: +/- 30 days of the [...] the Encounter. The data comes from all [place] treatment facilities. Date/Time Radiology Report Provider Source Oct 29, 2020 01:28 PM HIPS BILAT 5V: LISETTE ESTEBAN [id number] -NOV 16 4 M [facility] Exm Date: OCT 29, 2020@13:28 Req Phys: SHARMIN SUH Loc: OUTSIDE WW RAD -X (Req'g Loc) Img Loc: [place] [address] Service: Unknown (Case 86 COMPLETE) HIPS BILAT 5V (RAD Detailed) CPT:42943 Reason for Study: OUTSIDE STUDY IMPORTED ARB Clinical History: OUTSIDE STUDY IMPORTED ARB Report Status: Electronically Filed Date Report ed: Report: Impression: OUTSIDE STUDY IMPORTED Primary Diagnostic Code: VERIFIED BY: / *ELECTRONICALLY FILED* Oct 29, 2020 01:24 PM SPINE LUMBOSACRAL MIN 2 VIEWS: LISETTE WHATLEY [id number] -NOV 16 4 M [facility] Exm Date: OCT 29, 2020@13:24 Req Phys: SHARMIN SUH Loc: OUTSIDE WW RAD -X (Req'g Loc) Img Loc: [facility] 86 Service: Unknown (Case 87 COMPLETE) SPINE LUMBOSACRAL MIN 2 VIEWS (RAD Detailed) CPT:85241 Reason for Study: OUTSIDE STUDY IMPORTED ARB Clinical History: OUTSIDE STUDY IMPORTED ARB Report Status: Electronically Filed Date Report ed: Report: Impression: OUTSIDE STUDY IMPORTED Primary Diagnostic Code: VERIFIED BY: / *ELECTRONICALLY FILED* Oct 29, 2020 01:18 PM HAND LEFT: LISETTE ESTEBAN [id number] -NOV 16 4 M [facility] Exm Date: OCT 29, 2020@13:18 Req Phys: SHARMIN SUH Loc: OUTSIDE WW RAD -X (Req'g Loc) Im Loc: [place] [address] Service: Unknown (Case 88 COMPLETE) HAND LEFT (RAD Detailed) CPT: 79399 CPT Modifiers : LT LEFT SIDE Reason for Study: OUTSIDE STUDY IMPORTED ARB Clinical History: OUTSIDE STUDY IMPORTED ARB Report Status: Electronically Filed Date Report ed: Report: Impression: OUTSIDE STUDY IMPORTED Primary Diagnostic Code: VERIFIED BY: / *ELECTRONICALLY FILED* Oct 29, 2020 01:17 PM HAND RIGHT: LISETTE ESTEBAN [id number] -NOV 16 4 M [facility] Exm Date: OCT 29, 2020@13:17 Req Phys: SHARMIN SUH Loc: OUTSIDE WW RAD -X (Req'g Loc) Img Loc: [place] [address] Service: Unknown (Case 89 COMPLETE) HAND RIGHT (RAD Detailed) CPT :80790 CPT Modifiers : RT RIGHT SIDE Reason for Study: OUTSIDE STUDY IMPORTED ARB Clinical History: OUTSIDE STUDY IMPORTED ARB Report Status: Electronically Filed Date Report ed: Report: Impression: OUTSIDE STUDY IMPORTED Primary Diagnostic Code: VERIFIED BY: / *ELECTRONICALLY FILED* Oct 29, 2020 01:07 PM SPINE CERVICAL MIN 4 VIEWS: LUKE MDaily CASTELLANOS LISETTE BEAL ZAYDA [phone] -NOV 16 4 M [facility] Exm Date: OCT 29, 2020@13:07 Req Phys: SHARMIN SUH Loc: OUTSIDE WW RAD -X (Req'g Loc) Img Loc: [facility] Service: Unknown (Case 120 COMPLETE) SPINE CERVICAL MIN 4 VIEWS ( RAD Detailed) CPT:10840 Reason for Study: OUTSIDE STUDY IMPORTED ARB Clinical History: OUTSIDE STUDY IMPORTED ARB Report Status: Electronically Filed Date Report ed: Report: Impression: OUTSIDE STUDY IMPORTED Primary Diagnostic Code: VERIFIED BY: / *ELECTRONICALLY FILED* Oct 29, 2020 12:[address] HEAD WITHOUT CONTRAST: LUKE AilynDaily CASTELLANOS LISETTE BEAL ZAYDA [id number] -NOV 16 4 M [facility] Exm Date: OCT 29, 2020@12:45 Req Phys: NEFTALI PASTOR Loc: OUTSIDE CT- X (Req'g Loc) Img Loc: OUTSIDE [facility] CT Service: Unknown (Case 146 COMPLETE) CT HEAD WITHOUT CONTRAST (CT Detailed) CPT:12379 Reason for Study: Outside Study Imported ART Clinical History: Outside Study Imported ART Report Status: Electronically Filed Date Report ed: Report: Impression: OUTSIDE STUDY IMPORTED VERIFIED BY: / *ELECTRONICALLY FILED* Encounter Notes: All associated encounter notes This section contains the clinical notes associated to the Encounter. Date/Time Encounter Note(s) Provider Source Oct 29, 2020 09:00 AM NONVA CONSULT: SILVANO RAYO LOCAL TITLE: COMMUNITY CARE-CONSULT RESULT NOTE [facility] STANDARD TITLE: NONVA CONSULT DATE OF NOTE: OCT 29, 2020@09:00 ENTRY DATE: OCT 31, 2020@11:47:17 AUTHOR: SILVANO RAYO EXP COSIGNER: URGENCY: STATUS: COMPLETED The following Non VA Care consult has be en completed. See scanned document for report. NON VA Care Consult Results Radiology Comment: General /es/ SILVANO RAYO RESIDENTIAL PROGRAM COORDINATOR Signed: 10/31/2020 11:47
--- OUTSIDE RECORDS SUMMARY | 2021-08-18 20:52 | External Medical Summary | Encounter Summary ---
:1965 Author Organization [facility] Address [address] [place] [address] Care Team Providers Name Role Phone SANDRA GASCA Primary Care Provider Unavailable Selected Encounter This section includes the information on record at [place] for the Encounter. Date/Time Encounter Type Encounter Description Reason Provider Source Apr 21, 2021 11:06 Outpatient Encounter PRIMARY CARE/MEDICINE AM IHE Encounter [...] Date/Time Appointment Type Appointment Facili ty Name May 04, 2021 09:40 AM AMBULATORY - NONE [facility] Jun 24, 2021 01:00 PM AMBULATORY - NONE [facility] SANC[facility] Aug 26, 2021 09:30 AM AMBULATORY - MEDICINE [facility] Sep 02, 2021 02:00 PM AMBULATORY - MEDICINE [facility] Sep 02, 2021 03:00 PM AMBULATORY - NONE [place] [facility] Active, Pending, and Scheduled [...] the Encounter. The data comes from all [place] treatment facilities. Test Date/Time Test Type Test Details Facility Name May 05, 2021 10:49 AM Consult Order [facility]-PODIATRY MARGUERITE CASTELLANOS Cons Skin Peeling Machine Operator's Choice [facility] Encounter Notes: All associated encounter notes This section contains the clinical notes associated to the Encounter. Date/Time Encounter Note(s) Provider Source Apr 21, 2021 11:06 AM PHYSICIAN NOTE: NIKI VAUGHAN [facility] LOCAL TITLE: OUTSIDE MEDICAL RECORD - SUMMARY STANDARD TITLE: PHYSICIAN NOTE DATE OF NOTE: APR 21, 2021@11:06 ENTRY DATE: APR 21, 2021@11:06:33 AUTHOR: NIKI VAUGHAN I EXP COSIGNER: URGENCY: STATUS: COMPLETED Date of Visit: 04/16/21 Outside Provider: Adriana HAZEL Location: [facility] wound care Reason for Visit: new pt, left great toe wound /es/ NIKI VAUGHAN LPN Signed: 04/21/2021 11:10
--- OUTSIDE RECORDS SUMMARY | 2021-08-18 20:52 | External Medical Summary | Encounter Summary ---
:1965 Author Organization [facility] of [facility] rs Address [address] [place] [address] Care Team Providers Name Role Phone SANDRA GASCA Primary Care Provider Unavailable Selected Encounter This section includes the information on [place] at [place] for the Encounter. Date/Time Encounter Type Encounter Description Reason Provider Source May 05, 2021 01:40 Outpatient Encounter COMMUNITY CARE PM CONSULT IHE [...] Date/Time Appointment Type Appointment Facili ty Name Jun 24, 2021 01:00 PM AMBULATORY - NONE [facility] SANCHEZ [facility] Aug 26, 2021 09:30 AM AMBULATORY - MEDICINE [facility] Sep 02, 2021 02:00 PM AMBULATORY - MEDICINE [facility] PORTILLO [facility] Sep 02, 2021 03:00 PM AMBULATORY [...] Consult Order COMMUNITY CARE-PODIATRY MARGUERITE CASTELLANOS Cons [employer] Developer's Choice [facility] Encounter Notes: All associated encounter notes This section contains the clinical notes associated to the Encounter. Date/Time Encounter Note(s) Provider Source May 05, 2021 01:40 PM ADMINISTRATIVE NOTE: MARYAM CAVAZOS LOCAL TITLE: ADMINISTRATIVE NOTE [facility] STANDARD TITLE: ADMINISTRATIVE NOTE DATE OF NOTE: MAY 05, 2021@13:40 ENTRY DATE: MAY 05, 2021@13:41:01 AUTHOR: MARYAM CAVAZOS EXP COSIGNER: URGENCY: STATUS: COMPLETED The veterans enrollment status is "COPAY TEST RE QUIRED" The was mailed the following letter: Date: MAY 05, 2021 LISETTE BEAL [address] [facility] [place] [address] Dear LISETTE BELA, According to our records, we do not [...] VA Form [id number], providing information based on . What If You Have Questions? If you have questions, mina cheng contact me at or [phone], Ext: [phone] during our normal business hours of Tuesday thru Tuesday, from 8:00am to 4:00pm. Sincerely, Enrollment/Eligibility Department /es/ MARYAM CAVAZOS HEALTH SURGICAL TRAINING SPECIALIST Signed: 05/05/2021 13:41
--- OUTSIDE RECORDS SUMMARY | 2021-08-18 20:52 | External Medical Summary | Encounter Summary ---
:1965 Author Organization Department of [facility] rs Address [address] [place] [address] Care Team Providers Name Role Phone SANDRA GASCA Primary Care Provider Unavailable Selected Encounter This section includes the information on record at [place] for the Encounter. Date/Time Encounter Type Encounter Description Reason Provider Source May 05, 2021 10:45 Outpatient Encounter TELEPHONE/ANCILLARY AM IHE Encounter Template Text not used by [place] Plan of Treatment: Future Appointments (+ 6 months) and Future Tests (+/- 45 days) The Plan of Treatment section includes future care activities for the patient from all [place] treatmentfacilities. This section includes future appointments and future orders which are active, pending orscheduled.Future Appointments This section includes appointments that were scheduled to occur 6 months from the date of the Encounter, up to a maximum of 20 appointments. The data comes from all [place] treatment facilities. Appointment Date/Time Appointment Type Appointment Facili ty Name Jun 24, 2021 01:00 PM AMBULATORY - NONE [facility] SANCHEZ [facility] Aug 26, 2021 09:30 AM AMBULATORY - MEDICINE [facility] Sep 02, 2021 02:00 PM AMBULATORY - MEDICINE [place]O [facility] Sep 02, 2021 03:00 PM AMBULATORY - NONE [place] [facility] Active, Pending, and Scheduled [...] the Encounter. The data comes from all [place] treatment facilities. Test Date/Time Test Type Test Details Facility Name May 05, 2021 10:49 AM Consult Order COMMUNITY CARE-PODIATRY MARGUERITE CASTELLANOS [facility] Vending Route Servicer's Choice [facility] Encounter Notes: All associated encounter notes This section contains the clinical notes associated to the Encounter. Date/Time Encounter Note(s) Provider Source May 05, 2021 10:52 AM LETTERS: MICHAEL ELIZALDE LOCAL TITLE: COMMUNITY CARE-REQUEST FOR SERVICE S (RFS) LETTER [place] [facility] STANDARD TITLE: LETTERS DATE OF NOTE: MAY 05, 2021@10:52 ENTRY DATE: MAY 05, 2021@10:52:13 AUTHOR: MICHAEL ELIZALDE COSIGNER: URGENCY: STATUS: COMPLETED Dear Provider, FAX# [phone] Information: Patient Name: LISETTE BEAL Date of : Nov The Office of Care in the Community has receive d the request from you for services that were originall y authorized in the [employer] for this [place]. Upon review, the following determinatio n has been made: Service has been approved: 1 week RFS submitted by Kim Wright @ [facility] Wound Care requestig a referral to Gold Earl on NPI# [id number] Podiatry @ [facility] requesting contin uation of care; [address] [place] [address], [place]. [id number] P:# [phone] F:# [phone]. ICD Code: T14.90XA. A new Auth# will be issued to facility. No visits should take place until Auth# is rece ived: For questions regarding Authorizations please ca ll the "Office of Care in the Community Health" P #[phone]. COMMUNITY PROVIDER WILL RECEIVE AUTHORIZATION INFORMATION SEPARATELY Thank you for caring for our Veterans; Michael Elizalde #[phone] ext. [phone]. As a reminder, if applicable, ret urn medical records within 30 days for routine services. Office of Community Care
--- OUTSIDE RECORDS SUMMARY | 2021-08-18 20:52 | External Medical Summary | Encounter Summary ---
:1965 Author Organization Department of [facility] rs Address [address] [place] [id number] Care Team Providers Name Role Phone SANDRA GASCA Primary Care Provider Unavailable Selected Encounter This section includes the information on record at [place] for the Encounter. Date/Time Encounter Type Encounter Description Reason Provider Source Apr 15, 2021 08:00 Outpatient Encounter COMMUNITY CARE AM CONSULT IHE Encounter Template Text not used by [place] Plan of Treatment: Future Appointments (+ 6 months) and Future Tests (+/- 45 days) The Plan of Treatment section includes future care activities for the patient from all [place] treatmentfacilities. This section includes future appointments and future orders which are active, pending orscheduled.Future Appointments This section includes appointments that were scheduled to occur 6 months from the date of the Encounter, up to a maximum of 20 appointments. The data comes from all [place] treatment facilities. Appointment Date/Time Appointment Type Appointment Facili ty Name Apr 21, 2021 08:00 AM AMBULATORY - MEDICINE LUKE PORTILLO [facility] May 04, 2021 09:40 AM AMBULATORY - NONE LUKE SANCHEZ [facility] Jun 24, 2021 01:00 PM AMBULATORY - NONE LUKE SANCHEZ [facility] Aug 26, 2021 09:30 AM AMBULATORY - MEDICINE [facility] IC Sep 02, 2021 02:00 PM AMBULATORY - MEDICINE LUKE PORTILLO [facility] Sep 02, 2021 03:00 PM AMBULATORY - NONE [facility] ENTER Active, Pending, and [...] the Encounter. The data comes from all [place] treatment facilities. Test Date/Time Test Type Test Details Facility Name May 05, 2021 10:49 AM Consult Order COMMUNITY CARE-PODIATRY MARGUERITE CASTELLANOS Cons Skates Operator's Choice [facility] Encounter Notes: All associated encounter notes This section contains the clinical notes associated to the Encounter. Date/Time Encounter Note(s) Provider Source Apr 15, 2021 08:00 AM NONVA CONSULT: JONATHAN ESPINAL LOCAL TITLE: COMMUNITY CARE-CONSULT RESULT NOTE [facility] STANDARD TITLE: NONVA CONSULT DATE OF NOTE: APR 15, 2021@08:00 ENTRY DATE: APR 23, 2021@09:09:11 AUTHOR: JONATHAN ESPINAL EXP COSIGNER: URGENCY: STATUS: COMPLETED The following Non VA Care consult has be en completed. See scanned document for report. NON VA Care Consult Results Other: Wound Care [facility] Kim Wright CC: DME request for dressing changes DOS: 04/15/2021 /janet/ JONATHAN ESPINAL ADVANCED COMMUNITY DEVELOPMENT DIRECTOR CONSULT MGMT Signed: 04/23/2021 09:10 Receipt Acknowledged By: 04/23/2021 09:18 /es/ ROBYN HERNANDEZ JR Physician Strategic Planning Consultant for MARY SOUZA 04/23/2021 09:14 /es/ MEAGAN ARCOS RN
--- OUTSIDE RECORDS SUMMARY | 2021-08-18 20:53 | External Medical Summary | Encounter Summary ---
:1965 Author Organization Department of [facility] rs Address [address] [place] [address] Care Team Providers Name Role Phone SANDRA GASCA Primary Care Provider Unavailable Selected Encounter This section includes the information on record at [place] for the Encounter. Date/Time Encounter Type Encounter Description Reason Provider Source Apr 06, 2021 12:00 Outpatient Encounter COMMUNITY CARE PM CONSULT IHE Encounter Template Text not used by [place] Plan of Treatment: Future Appointments (+ 6 months) and Future Tests (+/- 45 days) The Plan of Treatment section includes future care activities for the patient from all [place] treatmentfacilities. This section includes future appointments and future orders which are active, pending orscheduled.Future Appointments This section includes appointments that were scheduled to occur 6 months from the date of the Encounter, up to a maximum of 20 appointments. The data comes from all [place] treatment facilities. Appointment Date/Time Appointment Type Appointment Facili ty Name Apr 08, 2021 02:00 PM AMBULATORY - MEDICINE [facility] IC Apr 10, 2021 10:00 AM AMBULATORY - MEDICINE [facility] Apr 10, 2021 10:30 AM AMBULATORY - MEDICINE [facility] PORTILLO [facility] Apr 13, 2021 08:15 AM AMBULATORY - MEDICINE [facility] Apr 15, 2021 03:30 PM AMBULATORY - MEDICINE [facility] Apr 21, 2021 08:00 AM AMBULATORY - MEDICINE [facility] PORTILLO [facility] May 04, 2021 09:40 AM AMBULATORY - NONE [facility]KE SANCHEZ [facility] Jun 24, 2021 01:00 PM AMBULATORY - NONE [facility] Aug 26, 2021 09:30 AM AMBULATORY - MEDICINE [facility] Sep 02, 2021 02:00 PM AMBULATORY - MEDICINE [facility] PORTILLO [facility] Sep 02, 2021 03:00 PM AMBULATORY - NONE [facility] MED[facility] C ENTER Active, Pending, [...] the Encounter. The data comes from all [place] treatment facilities. Test Date/Time Test Type Test Details Facility Name May 05, 2021 10:49 AM Consult Order COMMUNITY CARE-PODIATRY MARGUERITE CASTELLANOS Cons Litigation Legal Assistant's Choice [facility] Encounter Notes: All associated encounter notes This section contains the clinical notes associated to the Encounter. Date/Time Encounter Note(s) Provider Source Apr 06, 2021 12:00 PM NONVA REPORT: VALORIE WADSWORTH LOCAL TITLE: NON-VA REPORT OTHER [facility] STANDARD TITLE: NONVA REPORT DATE OF NOTE: APR 06, 2021@12:00 ENTRY DATE: MAY 05, 2021@10:52:04 AUTHOR: VALORIE WADSWORTH EXP COSIGNER: URGENCY: STATUS: COMPLETED See scanned report in [employer]. NON VA Care Consult Results NAME OF FACILITY-[facility] PHYSICIAN'S NAME-RANDELL BAEZ DOS:04/06/21 See scanned report in [employer]. /janet/ VALORIE WADSWORTH Signed: 05/05/2021 10:52
--- OUTSIDE RECORDS SUMMARY | 2021-08-18 20:53 | External Medical Summary ---
:1965 Author Organization Department of [facility] rs Address [address] [place] [address] Care Team Providers Name Role Phone SANDRA GASCA Primary Care Provider Unavailable Selected Encounter This section includes the information on record at [place] for the Encounter. Date/Time Encounter Type Encounter Description Reason Provider Source Apr 16, 2021 08:00 Outpatient Encounter COMMUNITY CARE AM CONSULT IHE Encounter Template Text not used by [place] Plan of Treatment: Future Appointments (+ 6 months) and Future Tests (+/- 45 days) The Plan of Treatment section includes future care activities for the patient from all [place] treatmentfacilities. This section includes future appointments and future orders which are active, pending orscheduled.Future Appointments This section includes appointments that were scheduled to occur 6 months from the date of the Encounter, up to a maximum of 20 appointments. The data comes from all [place] treatment facilities. Appointment Date/Time Appointment Type Appointment Facili ty Name Apr 21, 2021 08:00 AM AMBULATORY - MEDICINE [facility] PROTILLO [facility] May 04, 2021 09:40 AM AMBULATORY - NONE [facility] SANC[facility]Z [facility] Jun 24, 2021 01:00 PM AMBULATORY - NONE [facility] SANC[facility]Z [facility] Aug 26, 2021 09:30 AM AMBULATORY - MEDICINE [facility] IC Sep 02, 2021 02:00 PM AMBULATORY - MEDICINE [facility] PORTILLO [facility] Sep 02, 2021 03:00 PM AMBULATORY - NONE [facility] MED[facility] C ENTER Active, Pending, and [...] the Encounter. The data comes from all [place] treatment facilities. Test Date/Time Test Type Test Details Facility Name May 05, 2021 10:49 AM Consult Order COMMUNITY CARE-PODIATRY MARGUERITE CASTELLANOS Cons Bolt Maker's Choice [facility] Encounter Notes: All associated encounter notes This section contains the clinical notes associated to the Encounter. Date/Time Encounter Note(s) Provider Source Apr 16, 2021 08:00 AM NONVA CONSULT: JONATHAN ESPINAL LOCAL TITLE: COMMUNITY CARE-CONSULT RESULT NOTE [facility] STANDARD TITLE: NONVA CONSULT DATE OF NOTE: APR 16, 2021@08:00 ENTRY DATE: MAY 04, 2021@09:12:59 AUTHOR: JONATHAN ESPINAL EXP COSIGNER: URGENCY: STATUS: COMPLETED The following Non VA Care consult has be en completed. See scanned document for report. NON VA Care Consult Results Other: Wound Care [facility]Wound Kim Wright NP CC: New patient DOS: 04/16/2021 /janet/ JONATHAN ESPINAL ADVANCED TRAY DRIER OPERATOR CONSULT MGMT Signed: 05/04/2021 09:13
--- OUTSIDE RECORDS SUMMARY | 2021-08-18 20:53 | External Medical Summary | Encounter Summary ---
:1965 Author Organization Department of [facility] rs Address [address] [place] [address] Care Team Providers Name Role Phone SANDRA GASCA Primary Care Provider Unavailable Selected Encounter This section includes the information on record at [place] for the Encounter. Date/Time Encounter Type Encounter Description Reason Provider Source Jun 03, 2021 11:12 Outpatient Encounter PRIMARY CARE/MEDICINE AM IHE Encounter Template Text not used by [place] Plan of Treatment: Future Appointments (+ 6 [...] PM AMBULATORY - NONE LUKE SANCHEZ [facility] Aug 26, 2021 09:30 AM AMBULATORY - MEDICINE [place] [facility] Sep 02, 2021 02:00 PM AMBULATORY - MEDICINE [facility] PORTILLO [facility] Sep 02, 2021 03:00 PM AMBULATORY - NONE [place] [facility] Active, Pending, and [...] Consult Order COMMUNITY CARE-PODIATRY MARGUERITE CASTELLANOS Cons Sand Sifter's Choice [facility] Encounter Notes: All associated encounter notes This section contains the clinical notes associated to the Encounter. Date/Time Encounter Note(s) Provider Source Jun 03, 2021 11:12 AM PHYSICIAN NOTE: AURA ONEILL [facility] LOCAL TITLE: OUTSIDE MEDICAL RECORD - SUMMARY STANDARD TITLE: PHYSICIAN NOTE DATE OF NOTE: JUN 03, 2021@11:12 ENTRY DATE: JUN 03, 2021@11:12:59 AUTHOR: AURA ONEILL EXP COSIGNER: URGENCY: STATUS: COMPLETED Date of Visit: 06/02/21 Outside Provider: Josh BLANDON,OCS,CSCS Location: [facility] Reason for Visit: TONY duffy /janet/ [facility]fing[facility] Signed: 06/03/2021 11:14
--- OUTSIDE RECORDS SUMMARY | 2021-08-18 20:54 | External Medical Summary | Encounter Summary ---
:1965 Author Organization Department of [facility] rs Address [address] [place] [address] Care Team Providers Name Role Phone SANDRA GASCA Primary Care Provider Unavailable Selected Encounter This section includes the information on record at [place] for the Encounter. Date/Time Encounter Type Encounter Reason Provider Source Description Jul 29, 2021 OFFICE O/P EST TELEPHONE PRIMARY ICD-10-CM I10 Radha LEVY 04:28 PM MINIMAL PROB CARE Essential (primary) hypertension with Provider Comments: Essential (Primary) Hypertension IHE Encounter Template Text not used by [place] Assessments - Encounter Diagnoses This section includes the primary and secondary diagnoses documented for the Encounter. Date/Time Primary/Secondary Diagnosis Name Provider Source Diagnosis Jul 29, 2021 PRIMARY Essential SAMMI LEVYLOS [facility] 04:28 PM (primary) MEDICAL hypertension CENTER Jul 29, 2021 SECONDARY Other specified SAMMI LEVY [facility] 04:28 PM counseling MEDICAL CENTER Plan of Treatment: Future Appointments (+ 6 months) and Future Tests (+/- 45 days) The Plan of Treatment section includes future care activities for the patient from all [place] treatmentfacilities. This section includes future appointments and future orders which are active, pending orscheduled.Future Appointments This section includes appointments that were scheduled to occur 6 months from the date of the Encounter, up to a maximum of 20 appointments. The data comes from all [place] treatment facilities. Appointment Date/Time Appointment Type Appointment Facili ty Name Aug 26, 2021 09:30 AM AMBULATORY - MEDICINE [facility] IC Sep 02, 2021 02:00 PM AMBULATORY - MEDICINE [facility] PORT[facility]O [facility] Sep 02, 2021 03:00 PM AMBULATORY - [facility] ENTER Active, Pending, and Scheduled Orders This section includes a listing of several types of active, pending, and scheduled orders, including clinic medications orders, diagnostic test orders, procedure orders and consult orders; where the start date of the order is 45 days before the date of the Encounter or 45 days after the date of the Encounter. The data comes from all [place] treatment facilities. Test Date/Time Test Type Test Details Facility Name Aug 05, 2021 12:00 Laboratory - EXPANDED URINE DRUG LUKE Rivera AM Chemistry Order SCREEN URINE [facility] Aug 05, 2021 12:00 Laboratory - CORTISOL (AM) GOLD LUKE Ambrosio AM Chemistry Order (SEND) SERUM [facility] Aug 05, 2021 12:00 Laboratory - TESTOSTERONE, TOTAL GOLD VICTOR M Rivera AM Chemistry Order FZ SERUM [facility] Aug 05, 2021 12:00 Laboratory - TESTOSTERONE, FREE & LUKE Rivera AM Chemistry Order WKLY BND PANEL GOLD [facility] SERUM Aug 05, 2021 12:00 Laboratory - FSH GOLD SERUM LUKE Rivera AM Chemistry Order [facility] Aug 05, 2021 12:00 Laboratory - LUTEINIZING HORMONE (LH) VICTOR M Rivera AM Chemistry Order GOLD SERUM [facility] Aug 05, 2021 12:00 Laboratory - PROLACTIN GOLD (SEND) SEAN Rivera AM Chemistry Order SERUM [facility] Aug 05, 2021 12:00 Laboratory - HEPATITIS A IgG GOLD FZ NANI Rivera AM Chemistry Order SERUM [facility] Aug 05, 2021 12:00 Laboratory - HEPATITIS B SURFACE LUKE Rivera AM Chemistry Order ANTIBODY GOLD [facility] Aug 05, 2021 12:00 Laboratory - HEPATITIS B SURFACE LUKE Rivera AM Chemistry Order ANTIGEN GOLD- [facility] Aug 05, 2021 12:00 Laboratory - CBC & MORPHOLOGY (WITH NISHANT Rivera AM Chemistry Order DIFF) LAV WB BLOOD [facility] Aug 05, 2021 12:00 Laboratory - COMPREHENSIVE METABOLIC NANI Rivera AM Chemistry Order PANEL GOLD RF SERUM [facility] Aug 05, 2021 12:00 Laboratory - LIPID PANEL GOLD RF LUKE Rivera AM Chemistry Order SERUM [facility] Aug 05, 2021 12:00 Laboratory - HEMOGLOBIN A1C LAV WB RF VICTOR M RobertsonDaily AM Chemistry Order BLOOD [facility] Aug 05, 2021 12:00 Laboratory - MICROALBUMIN/CREATININE NANI Rivera AM Chemistry Order PANEL URINE, RANDOM [facility] Surgical Procedures: All associated to the encounter This section includes all Surgical Procedures and Surgical Procedure Notes associated to the Encounter.Surgical Procedures This section includes all Surgical Procedures associated to the Encounter.Surgical Procedure Date/Time Procedure Procedure Type Procedure Provider Source Qualifiers Jul 29, 2021 PT PT EDUCATION SAMMI LEVY 04:28 PM EDUCATION,[facility] ,PER ENCOUNTER CENTER Surgical Notes There are no notes associat ed with this procedure. Encounter Notes: All associated encounter notes This section contains the clinical notes associated to the Encounter. Date/Time Encounter Note(s) Provider Source Jul 29, 2021 04:28 PM TELEPHONE ENCOUNTER NOTE: SAMMI LEVY [facility] LOCAL TITLE: TELEPHONE CALL [facility] TER STANDARD TITLE: TELEPHONE ENCOUNTER NOTE DATE OF NOTE: JUL 29, 2021@16:28 ENTRY DATE: JUL 29, 2021@16:28:34 AUTHOR: SAMMI LEVY EXP COSIGNER: URGENCY: STATUS: COMPLETED [place] was contacted by V20 Jenelle RAMIREZ RNCC on 2020 PATIENT LOCATION: [X}HOME [ ][place] FACILITY [ ]OTHER APPOINTMENT TYPE: [X}TELEPHONE [ ]VVC [ ]SECURE MESSAGE Visit length 9 MINUTES. For clinical documentation please see notes in J LV or CPRS at: Roc Brian Documented in Clinic: [id number] JAMES PACT RN ADM ([place], [facility]) /janet/ Sammi Levy RN, BSN [id number] JAMES TelePrimary Care RN Signed: 07/29/2021 16:29
--- OUTSIDE RECORDS SUMMARY | 2021-08-18 20:54 | External Medical Summary | Encounter Summary ---
:1965 Author Organization Department of [facility] rs Address [address] [place] [address] Care Team Providers Name Role Phone SANDRA GASCA Primary Care Provider Unavailable Selected Encounter This section includes the information on record at [place] for the Encounter. Date/Time Encounter Type Encounter Reason Provider Source Description Jul 15, 2021 OFFICE O/P EST TELEPHONE PRIMARY ICD-10-CM I10 Radha LEVY [facility] 03:43 PM MINIMAL PROB CARE Essential (primary) hypertension with Provider Comments: Essential (Primary) Hypertension IHE Encounter Template Text not used by [place] Assessments - Encounter Diagnoses This section includes the primary and secondary diagnoses documented for the Encounter. Date/Time Primary/Secondary Diagnosis Name Provider Source Diagnosis Jul 15, 2021 [facility] (primary[facility] MED[facility] hypertension CENTER Jul 15, 2021 SECONDARY Other specified SAMMI LEVY [facility] 03:43 PM [facility] MEDICAL CENTER Plan of Treatment: Future Appointments [...] 26, 2021 09:30 AM AMBULATORY - MEDICINE [facility] IC Sep 02, 2021 02:00 PM AMBULATORY - MEDICINE LUKE PORTILLO [facility] Sep 02, 2021 03:00 PM AMBULATORY - [facility] ENTER Active, Pending, and Scheduled Orders [...] LUKE Rivera AM Chemistry Order SCREEN URINE [facility] Aug 05, 2021 12:00 Laboratory - CORTISOL (AM) GOLD LUKE Ambrosio AM Chemistry Order (SEND) SERUM [facility] Aug 05, 2021 12:00 Laboratory - TESTOSTERONE, TOTAL GOLD VICTOR M Rivera AM Chemistry Order FZ SERUM [facility] Aug 05, 2021 12:00 Laboratory - TESTOSTERONE, FREE & LUKE Rivera AM Chemistry Order WKLY BND PANEL GOLD [facility] Aug 05, 2021 12:00 Laboratory - FSH GOLD SERUM LUKE Rivera AM Chemistry Order [facility] Aug 05, 2021 12:00 Laboratory - LUTEINIZING HORMONE (LH) VICTOR M Rivera AM Chemistry Order GOLD SERUM [facility] Aug 05, 2021 12:00 Laboratory - PROLACTIN GOLD (SEND) SEAN Rivera AM Chemistry Order SERUM [facility] Aug 05, 2021 12:00 Laboratory - HEPATITIS A IgG GOLD FZ NANI Rivera AM Chemistry Order SERUM [facility] Aug 05, 2021 12:00 Laboratory - HEPATITIS B SURFACE LUKE Rivera AM Chemistry Order ANTIBODY GOLD [facility] Aug 05, 2021 12:00 Laboratory - HEPATITIS B SURFACE LUKE Rivera AM Chemistry Order ANTIGEN GOLD- SERUM [facility] Aug 05, 2021 12:00 Laboratory - CBC & MORPHOLOGY (WITH NISHANT Rivera AM Chemistry Order DIFF) LAV WB BLOOD [facility] Aug 05, 2021 12:00 Laboratory - COMPREHENSIVE METABOLIC NANI Rivera AM Chemistry Order PANEL GOLD RF SERUM [facility] Aug 05, 2021 12:00 Laboratory - LIPID PANEL GOLD RF LUKE Rivera AM Chemistry Order SERUM [facility] Aug 05, 2021 12:00 Laboratory - HEMOGLOBIN A1C LAV WB RF VICTOR M EHSAN RobertsonDaily AM Chemistry Order BLOOD [facility] Aug 05, 2021 12:00 Laboratory - MICROALBUMIN/CREATININE NANI Rivera AM Chemistry Order PANEL URINE, RANDOM [facility] Surgical Procedures: All associated to the encounter This section includes all Surgical Procedures and Surgical Procedure Notes associated to the Encounter.Surgical Procedures This section includes all Surgical Procedures associated to the Encounter.Surgical Procedure Date/Time Procedure Procedure Type Procedure Provider Source Qualifiers Jul 15, 2021 PT PT EDUCATION SAMMI LEVY 03:43 PM EDUCATION,[facility] ,PER ENCOUNTER CENTER Surgical Notes There are no notes associat ed with this procedure. Encounter Notes: All associated encounter notes This section contains the clinical notes associated to the Encounter. Date/Time Encounter Note(s) Provider Source Jul 15, 2021 03:43 PM TELEPHONE ENCOUNTER NOTE: SAMMI LEVY [facility] LOCAL TITLE: TELEPHONE CALL [facility] TER STANDARD TITLE: TELEPHONE ENCOUNTER NOTE DATE OF NOTE: JUL 15, 2021@15:43 ENTRY DATE: JUL 15, 2021@15:43:12 AUTHOR: SAMMI LEVY EXP COSIGNER: URGENCY: STATUS: COMPLETED was contacted by V20 Jenelle RAMIREZ RNCC on D 2020 PATIENT LOCATION: [X}HOME [ ]ND FACILITY [ ]OTHER APPOINTMENT TYPE: [X}TELEPHONE [ ]VVC [ ]SECURE MESSAGE Visit length 12 MINUTES. For clinical documentation please see notes in J LV or CPRS at: Roc Brian Documented in Clinic: [id number] JAMES PACT RN ADM ([place], [facility]) /janet/ Sammi Levy RN, BSN [id number] JAMES TelePrimary Care RN Signed: 07/15/2021 15:44
--- OUTSIDE RECORDS SUMMARY | 2021-08-18 20:55 | External Medical Summary | Encounter Summary ---
:1965 Author Care Team Providers Name Role Phone Nelson Ruiz - [facility] - [place] Primary Care Provider [phone] Reason for Visit 1 WK FOLLOW-UP Assessment and Plan Assessment Note Patient presents for continued follow-u p diabetic foot ulcer as a result of traumatic injury Patient dropped a washer on his toe and experienced significant swelling; he used sterilized straight pin to release the pressure and pus drained from his toe. He went to [facility] on 04/06/2021 for evalu ation and treatment. A large subungual h ematoma was present to the great toe with an open area of 1/2 cm to planter aspect of the toe. The ER preformed an x- ray which did not show fracture or osteomyeli tis and he was placed on Augmentin 875-1 25 BID for 10 days. He has finished this. Gregory has comorbidities that are being t aken into consideration along with today's appointment this includes hypertension, obesity, tobacco abuse, type 2 diabetes. 1. Traumatic injury as noted above -Continues to positively progress toward s closure with active lupillo margins and a healthy -granular wound bed -no changes to POC -expect full closure in 3-4 weeks if he contiues on this trajectory TBI and ABIs were performed in clinic at initial visit on the left side the BETTY at the dorsalis pedis is 0.45 and on the right side the TBI is 0.69 otherwise were within normal limits and not grossly elevated. We will continue with current plan of ca re patient has been successful in changing his dressings at home in between clinic visits. Continues to decline TCC I have already sent a referral over to [facility] so he can establish a regular foot and nail care along with foot gear Patient will return to clinic in 2 weeks . 2. Type 2 diabetes mellitus A1C 10.4%, poorly controlled is current ly on Metformin at 1000 mg twice daily and alogliptin 12.5 mg Reinforced diabetic management how this affects overall health and wound healing Encouraged checking of blood glucose lev els in the morning when awakening alternating with the next day 2 horus after meal 3. Tobacco user 1/2 pack cigarettes per day, discussed how this affects overall health and wound healing offered resources not ready at this time Discussion Note Thank you for this referral and opportun ity to care for your patient. If there are any questions or concerns please feel free to contact me at . Patient educational handouts: No information available. Plan of Care Patient Instructions Return to clinic as scheduled in 2 week s Get prompt medical attention if any the following occur: An increase in redness or swelling. Red streaks in the skin leading away fro m the wound. An increase in pain or swelling at or ar ound the wound. Fever over 100.0 F orally. New odor or drainage from the wound bed. Reminders Provider Appointments None recorded. Lab None recorded. Referral None recorded. Procedures None recorded. Surgeries None recorded. Imaging None recorded. Medications Name Start Date alogliptin 12.5 mg tablet Take 1 tablet every day by oral route. aspirin 325 mg capsule Take 1 capsule every day by oral route. cholecalciferol (vitamin D3) 125mg daily doxycycline hyclate 100 mg capsule Take 1 capsule twice a day by oral route for 14 days. gentamicin 0.1 % topical cream APPLY A SMALL AMOUNT TO THE AFFECTED AR EA ORDERED BY WOUND CARE DRESSING CHANGE EVERY OTHER DAY insulin glargine (U-100) 100 unit/mL (3 mL) subcutaneo us pen 04/16/2021 Inject 23 units every day by subcutaneous route at [facility]. lisinopril 10 mg tablet Take 1 tablet every day by oral route. metformin 1,000 mg tablet Take 1 tablet twice a day by oral route. methocarbamol 750 mg tablet Take 1 tablet 4 times a day by oral route. naproxen 500mg bid prn [place] 3 1000mg BID pregabalin 150 mg capsule Take 1 capsule twice a day by oral route. Vashe Wound Therapy 0.033 % irrigation solution Take 5 mL by irrigation route as directed. venlafaxine 75 mg tablet Take 1 tablet twice a day by oral route. Vitamin C 1,000 mg tablet Take 1 tablet every day by oral route. Xylocaine 20 mg/mL (2 %) injection solution Take 1 mL by injection route as directed. Medications Administered None recorded. Vitals Height Weight BMI Blood Pressure 5 ft 8 in 200.1 lbs 30.4 kg/m2 145/103 mm[Hg] Results Lab Results None recorded. 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 Social History Tobacco Smoking Status Heavy Tobacco Smoker (1/2 pack per da y) What is your level of alcohol consumption? Occasional Do you have difficulty walking or climbing N stairs? Are you able to walk? YESWOREST Are you currently employed? N Are you able to care for yourself? Y Are you blind or do you have difficulty N seeing? Do you have difficulty doing errands N alone? Are you deaf or do you have serious N difficulty hearing? Do you have difficulty concentrating, N remembering or making decisions? Do you or have you ever used any other N forms of tobacco or nicotine? What is your level of caffeine Moderate consumption? Do you use any illicit or recreational N drugs? At what age did you start smoking tobacco? 18 Do you have difficulty dressing or N bathing? Family History Relation Problem Onset Age of Age Notes Maternal Grandmother Atrial fibrillation (No N/A (No Notes) Information) Maternal Grandmother Diabetes mellitus (No N/A (N o Notes) Information) Mother Diabetes mellitus (No N/A (No Notes) Information) Maternal Grandfather Diabetes mellitus (No N/A (N o Notes) Information) Father Exposure to Agent (No N/A (No Notes) Thayne Information) Functional Status No Impairment. Past Encounters 05/28/2021 Traumatic Injury; Type 2 Diabetes [facility] us; Tobacco User Kim Wright, RN SHIFT MGR: [address], [place] [phone], Ph. 05/14/2021 Traumatic Injury; Type 2 Diabetes [facility] us; Tobacco User Kim Wright, RN SHIFT MGR: [address], [place] [phone], Ph. 05/07/2021 Traumatic Injury; Type 2 Diabetes Mell[facility] us; Tobacco User Kim Wright, RN SHIFT MGR: [address], [place] [phone], Ph. History of Present Illness Note: <div>05/14/2021: Gregory presents today for follow up evaluation of left great toe wound. He reports dressing changes at home are being done as ordered and without issue. He continues to reports blood sugars in the low 100s at home. He arrives 12 minutes late to his appointment today. His BP todayis 170/100 manually, he states he has not taken his BP meds yet. </div><div>
</div><div>05/28/2021: Gregory presents today for follow up evaluation of left great toe wound. He reports he has not been checking his blood sugars for the last couple of weeks. He states dressing changes are being done at home as ordered. </div><div>
</div><div>cc: PCP Nelson Archer MD</div> Review of Systems Comprehensive General Adult ROS Reported By: Patient Constitutional: Required Findings Pain, Pain scale (2 / 10). Constitutional: no fever, no night sweats, n o significant weight gain, no significant weight loss, no exercise intolerance, no chills, no malaise Eyes: Eyes: no dry eyes, no irrita tion, no eye disease/injury, vision change, wears glasses /contact lenses ENMT: Ears: no ear pain, difficult y hearing, ringing in the ears. Nose: no frequent nosebleeds , no nose problems, no sinus problems. Mouth/Throat: no s ore throat, no bleeding gums, no snoring, no dry mouth, no mo uth ulcers, no oral abnormalities, no teeth problems, no ringin g in the ears, no sinusitis Cardiovascular: Cardiovascular: no chest michael n, no arm pain on exertion, no shortness of breath when wal [place], no shortness of breath when lying down, no palpitations, no known heart murmur, no ankle swelling Respiratory: Respiratory: no cough, no wh eezing, no shortness of breath, no coughing up blood, no sleep apnea Gastrointestinal: Gastrointestinal: no abdomin al pain, no nausea, no vomiting, no constipation, normal appe tite, no diarrhea, not vomiting blood, no dyspepsia, no GERD Genitourinary: Genitourinary: no incontinen ce, no difficulty urinating, no hematuria, no increased freq uency Musculoskeletal: Musculoskeletal: no muscle w eakness, no swelling in the extremities, no difficulty w alking, no cramps, no osteoporosis, no fractures, muscle aches, arthralgias/joint pain, back pain, neck pain Integumentary: Skin: no abnormal mole, no j aundice, no rashes, no laceration, no changes in hair/nails, no psoriasis, no change in skin color, no breast lump, dry s kin, non-healing areas Neurologic: Neurologic: no loss of consc iousness, no weakness, no seizures, no dizziness, no m igraines, no headaches, no tremor, no gait dysfunction, no para lysis, numbness Psychiatric: Psych: no depression, feelin g safe in a relationship, no alcohol abuse, no anxiety, n o hallucinations, no suicidal thoughts, no mood swings, no memory loss, no dementia, no delirium, sleep disturbances , restless sleep, agitation Endocrine: Endocrine: no fatigue Hematologic/Lymphatic: Hematologic/Lymphatic no swo llen glands, no bruising, no excessive bleeding, no anemi a, no phlebitis Allergic/Immunologic: Allergy/Immunologic: no runn y nose, no sinus pressure, no itching, no hives, no freque nt sneezing Notes: <div><strong>PAIN ASSESSMENT </strong></div><div>1. Pain assessed rating {{0|1|2*|3|4 |5|6|7|8|9|10}}/10 using standard pain scale.</div><div>2. Int ervention for pain {{n/a|yes*|no}} ____tylenol </div><div>3. Pain reassessed at minutes as {{0|1|2*|3|4|5|6|7|8|9|10}} using standard pain scale.</ div><div><strong> SAFETY / ABUSE SCREENING ASSESSMENT < /strong></div><div>1. Have you fallen in the last 30 days? {{yes|no*}}</div><div>2. Do you use an assistive device? {{y es|no*}}</div><div>3. Are you currently in a relationship where you feel threatened or afraid? {{yes|no*}}</div><di v>4. Abuse / neglect symptoms observed by clinician? {{yes |no*}} If yes, was a referral made to an agency {{n/a|yes|no}}< /div> Physical Exam General Adult Exam- Male Reported By: Patient Constitutional: General Appearance: healthy- appearing, well-nourished, well-developed. Level of Dis tress: NAD. Ambulation: ambulating normally Psychiatric: Insight: good judgement. Men rob Status: active and alert, normal mood, normal affect. Orienta tion: to time, to place, to person. Memory: recent memory normal , remote memory normal Head: Head: normocephalic, atrauma tic Eyes: Pupils: PERRLA. EOM: EOMI. L ens: clear. Sclerae: non-icteric. Vision: peripheral vision gr ossly intact, acuity grossly intact ENMT: Ears: no lesions on external ear, EACs clear. Hearing: no hearing loss Neck: Neck: supple, trachea midlin e, no masses, FROM Lungs: Respiratory effort: no dyspn ea. Auscultation: breath sounds normal, good air movement, CTA excep t as noted, no wheezing, no rales/crackles, no rhonchi Cardiovascular: Apical Impulse: not displace d. Heart Auscultation: RRR, no murmurs. Pulses including femoral / p edal: ; Pedal Pulses by Doppler:Left:Dorsalis Pedis TriphasicPosterior Tibial biphasicRight:Dorsalis Pedis BiphasicPosterior Tibial Biphasicpulses palpable bila terally Abdomen: Bowel Sounds: normal. Inspec tion and Palpation: soft, non-distended, no tenderness , no guarding, no rebound tenderness, no masses Musculoskeletal:: Motor Strength and Tone: nor mal, normal tone. Joints, Bones, and Muscles: normal movement of all extremities, no contractures, no bony abnormalities, no malal ignment, no tenderness. Extremities: no cyanosis, no edema, varicosi ties Neurologic: Gait and Station: normal gai t, normal station. Cranial Nerves: grossly intact. Sensation: g rossly intact, monofilament test abnormal; Monofilament testi ng:Left: 8/10, decreased sensation to arch of footRight: 10/10 Skin: Inspection and palpation: go od turgor, no jaundice, ulcer; 05/14/2021: scant drainage to dressingLeft Great toe: 0.4 x 0.6 x 0.2cm, 0.1cm circumferential periwound maceration otherwise is clean and granular making pr ogression towards closure and is noninfected no changes to pl an of care05/28/2021: scant drainage to dressing Left Great toe: 0.4 x 0.2 x 0.1cm-triangle shaped clean 100% granulation"
--- OUTSIDE RECORDS SUMMARY | 2021-08-18 20:55 | External Medical Summary | Encounter Summary ---
:1965 Author Care Team Providers Name Role Phone Nelson Ruiz - [facility] - [place] Primary Care Provider [phone] Reason for Visit 1 WK FOLLOW-UP Assessment and Plan Assessment Note Patient presents for continued follow-u p diabetic foot ulcer as a result of traumatic injury Patient dropped a washer on his toe and experienced significant swelling; he used sterilized straight pin to release the pressure and pus drained from his toe. He went to [facility] on 04/06/2021 for evalu ation and [...] abuse, type 2 diabetes. 1. Traumatic injury CLOSED TBI and ABIs were performed in clinic [...] offered resources not ready at this time 4. Onychomycosis of toenails 10 dystrophic onychomycotic nails debri ded with open jaw nippers, free edges smoothed with emery board. No injury or bleeding noted with procedure. 5. Avulsion of toenail of left foot Great toenail Xylocaine 20 mg/mL (2 %) injection so lution Discussion Note Thank you for this referral and opportun ity to care for your patient. If there are any questions or concerns please feel free to contact me at . Patient educational handouts: No information available. Plan of Care Patient Instructions Please call the clinic if your wound re opens, new wounds develop, or if you have any questions or concerns. CONGRATULATIONS on all of your hard work and dedication to the healing of your wound; you are discharged from wound care services as of today. Return to clinic on 08/13/2021 at 10:00A M for toenail care Reminders Provider Appointments None recorded. Lab None [...] units every day by subcutaneous route at [facility]. lisinopril 10 mg tablet Take 1 tablet every day by oral route. metformin 1,000 mg tablet Take 1 tablet twice a day by oral route. methocarbamol 750 mg tablet Take 1 tablet 4 times a day by oral route. naproxen 500mg bid prn [place] 3 1000mg BID pregabalin 150 mg capsule [...] by injection route as directed. Medications Administered Name Date Xylocaine 20 mg/mL (2 %) injection solution [id number]:[id number]:46 Take 1 mL by injection route as directed. Vitals Height Weight BMI Blood Pressure 5 ft 8 in 198.8 lbs 30.2 kg/m2 (1) 184/104 mm[ Hg] (2) 168/99 mm[Hg ] Results Lab Results None recorded. Allergies Code Code System Name Reaction Severity Onset RxNorm [place] Butter Rash Mild Problems Name Status Onset [...] Tobacco Smoker (1/2 pack per da y) Do you have difficulty walking or climbing N stairs? Are you able to walk? YESWOREST Are you currently employed? N Are you able to care for yourself? Y Are you blind or do you have difficulty N seeing? Do you have difficulty doing errands N alone? Do you use any illicit or recreational N drugs? What is your level of alcohol consumption? Occasional Are you deaf or do you have serious N difficulty hearing? Do you have difficulty concentrating, N remembering or making decisions? Do you or have you ever used any other N forms of tobacco or nicotine? What is your level of caffeine Moderate consumption? At what age did you start smoking [...] Exposure to Agent (No N/A (No Notes) [place] Information) Functional Status No Impairment. Past Encounters [facility]2021 [facility]; Onychomycosis of Toenails; Avulsion of Toenail of Left Foot Kim Wright, PLANT ATTENDANT: [address] [place] [address] [place] [phone], Ph. 05/28/2021 Traumatic Injury; Type 2 Diabetes [facility] us; Tobacco User Kim Wright, PLANT ATTENDANT: [address] [place] [address], [place] [phone], Ph. 05/14/2021 [facility]; [facility] Kim Wright, PLANT ATTENDANT: [address] [place] [address], [place] [phone], Ph. History of Present Illness Note: <div>05/28/2021: Gregory presents today for follow up evaluation of left great toe wound. He reports he has not been checking his blood sugars for the last couple of weeks. He states dressing changes are being done at home as ordered.
</div><div>
</div><div& gt;06/11/2021: Gregory presents today for follow up evaluation of left great toe wound. Gregory arrives 15 minutes late to his appointment. He states he changed his dressing this morning. He noticed his wound has been closed since last week. He states his blood sugars have been around 120's at home. He denies other medication changes or doctors appointments. He is requesting his toenails be addressed today as his great toenail is about to fall off. </div><div>
</div><div>cc: PCP Nelson Archer MT</div> Review of Systems Comprehensive General Adult ROS Reported By: Patient Constitutional: Required Findings Pain, Pain scale (0 / 10). Constitutional: no fever, no night [...] Notes: <div><strong>PAIN ASSESSMENT </strong></div><div>1. Pain assessed rating {{0*|1|2|3|4 |5|6|7|8|9|10}}/10 using standard pain scale.</div><div>2. Int ervention for pain {{n/a|yes*|no}} ____tylenol </div><div>3. Pain reassessed at minutes as {{0*|1|2|3|4|5|6|7|8|9|10}} using standard pain scale.</ div><div><strong> SAFETY / [...] pl an of care05/28/2021: scant drainage to dressingLeft Great toe: 0.4 x 0.2 x 0.1cm-triangle shaped clean 100% [id number]/28/2021: no drainage on the dressing, great toe toenail 75% detached from th e nail bed-see procedure screens belowLeft Great toe: callus build up with a pinpoint opening"
--- OUTSIDE RECORDS SUMMARY | 2021-08-18 20:55 | External Medical Summary ---
:1965 Author Care Team Providers Name Role Phone NEFTALI PAST[facility] - [facility] Primary Care Provider [phone] Allergies Code Code System Name Reaction Severity Status Onset RxNorm Creole Butter Rash Mild Active Medications Name Status Start Date Stop Date alogliptin 12.5 mg tablet Active Not av ailable Take 1 tablet every day by oral route. aspirin 325 mg capsule Active Not avail able Take 1 capsule every day by oral route. carboxymethyl 0.5 %-glycerin 1 %-polysorb 80 0.5 %-PF eye dr bethea Completed 04/16/2021 1 drop in eye four times a day cholecalciferol (vitamin D3) Active Not available 125mg daily diclofenac 1 % topical gel Completed 04/16 APPLY 2 GRAMS TO THE AFFECTED AREA(S) BY TOPICAL ROUTE 4 TIMES PER DAY doxycycline hyclate 100 mg capsule Active Not available Take 1 capsule twice a day by oral route for 14 days. Fish Oil 1,000 mg (120 mg-180 mg) capsule Completed 04/16/2021 Take 2 capsules every day by oral route. gentamicin 0.1 % topical cream Active N ot available APPLY A SMALL AMOUNT TO THE AFFECTED AR EA ORDERED BY WOUND CARE DRESSING CHANGE EVERY OTHER DAY insulin glargine (U-100) 100 unit/mL (3 mL) subcutaneous pen Act corie 04/16/2021 Not available Inject 23 units every day by subcutaneous route at bedtime. lisinopril 10 mg tablet Active Not avai lable Take 1 tablet every day by oral route. metformin 1,000 mg tablet Active Not av ailable Take 1 tablet twice a day by oral route. methocarbamol 750 mg tablet Active Not available Take 1 tablet 4 times a day by oral route. naproxen Active Not available 500mg bid prn [place] 3 Active Not available 1000mg BID pregabalin 150 mg capsule Active Not av ailable Take 1 capsule twice a day by oral route. Vashe Wound Therapy 0.033 % irrigation solution Active Not available Take 5 mL by irrigation route as directed. venlafaxine 75 mg tablet Active Not emery ilable Take 1 tablet twice a day by oral route. Vitamin C 1,000 mg tablet Active Not av ailable Take 1 tablet every day by oral route. Xylocaine 20 mg/mL (2 %) injection solution Active Not available Take 1 mL by injection route as directed. Problems Name Status Onset Date Source Type [...] with surgery at age 10-11 years old Results Lab Results Date Name Specimen Result Interpretation Description Value Range Status Address 04/16/2021 Culture, [place] Source toe Final [facility]: [address] , [place] Specimen other,left Final [facility] Description [facility] Lab: [address] , [place] [facility] gram Stain Final [facility] Result [facility]: [address] , [place] Quantity of moderate Final [facility] Growth growth [facility]: (isolate 1) [address], [place] Result klebsiella Final [facility]o logists' Comment aerogenes Region al Lab: (isolate 1) [address], [place] Result klebsiella Final [facility] species [facility] Lab: (isolate 1) [address], [place] Susceptible Ampicillin/sandoval 8/4 [facility] lbactam [facility] Lab: [address] , [place] Resistant Ampicillin >16 Final [facility]: [address] , [place] Susceptible Cefotaxime <=2 Final [facility]: [address] , [place] Resistant Cefoxitin >16 Final [facility]: [address] [place] [address] TIS Resistant Cefazolin >16 Final [facility]: [address] [facility] , [place] [facility] Susceptible Ciprofloxacin <=1 [facility]: [address] [facility] , [place] [facility] Susceptible Cefepime <=2 Final [facility]: [address] [facility] , [place] [facility] Susceptible Cefuroxime <=4 Final [facility]: [address] [facility] , [place] Susceptible Gentamicin <=2 Final [facility]: [address] [facility] , [place] Susceptible Levofloxacin <=2 Final [facility]: [address] [facility] , [place] Susceptible Piperacillin/ <=8 [facility] tazobactam [facility] al Lab: [address] [facility] , [place] Susceptible Trimeth/sulfa <=2/38 [facility]: [address] [facility] , [place] Susceptible Tetracycline <=4 Final [facility]: [address] [facility] , [place] Past Encounters 06/11/2021 Traumatic Injury; Type 2 Diabetes Mellit us; Tobacco User; Onychomycosis of Toenails; Avulsion of Toenail of Left Foot Kim Wright, [employer] DEVELOPER: [address] [place] [address] [place] [email or web address] [phone], Ph. 05/28/2021 Traumatic Injury; Type 2 Diabetes Mellit us; Tobacco User Kim Wright, [employer] DEVELOPER: [address] [place] [address] [place] [phone], Ph. 05/14/2021 Traumatic Injury; Type 2 Diabetes Mellit us; Tobacco User Kim Wright, [employer] DEVELOPER: [address] [place] [address] [place] [id number], Ph. 05/07/2021 Traumatic Injury; Type 2 Diabetes Mellit us; Tobacco User Kim Wright [employer]EL[employer]: [address] [place] [address], [place] [phone], Ph. 04/16/2021 Traumatic Injury; Type 2 Diabetes Mellit us; Tobacco User Kim Wright [employer] DEVEL[employer]: [address] [place] [address] [place] [phone], Ph. Social History Tobacco Smoking Status Heavy Tobacco Smoker (1/2 pack per da y) Vaccine List None recorded. Plan of Care Patient Instructions Please call the clinic if your wound re opens, new wounds develop, or if you have any questions or concerns. CONGRATULATIONS on all of your hard work and dedication to the healing of your wound; you are discharged from wound care services as of today. Return to clinic on 08/13/2021 at 10:00A M for toenail care Return to clinic as scheduled in 2 week s Get prompt medical attention if any the following occur: An increase in redness or swelling. Red streaks in the skin leading away fro m the wound. An increase in pain or swelling at or ar ound the wound. Fever over 100.0 F orally. New odor or drainage from the wound bed. Return to clinic two weeks Wound washed with warm soapy water. Pat dry cleanse with vashe skin prep periwound collagen (puracol) gentamycin cream to base of wound bed gauze secure with hypafix tape Darco shoe Dressing change every other day return to clinic in 2 weeks Get prompt medical attention if any the following occur: An increase in redness or swelling. Red streaks in the skin leading away fro m the wound. An increase in pain or swelling at or ar ound the wound. Fever over 100.0 F orally. New odor or drainage from the wound bed. Return to clinic in one week Dressing change: Wound washed with warm soapy water. Pat dry cleanse with vashe skin prep periwound collagen (puracol) to wound bed gentamycin cream to base of wound bed gauze secure with hypafix tape Darco shoe Dressing change every other day return to clinic in one week Get prompt medical attention if any the following occur: An increase in redness or swelling. Red streaks in the skin leading away fro m the wound. An increase in pain or swelling at or ar ound the wound. Fever over 100.0 F orally. New odor or drainage from the wound bed. Return to clinic as scheduled Please start Vitamin C 100mg daily. Continue with your Aspirin 325 mg daily. 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 Elevate your legs above your heart do th is 3-4 times a day for about 10-15 minutes minimum. Wound washed with warm soapy water. Pat dry cleanse with vashe gentamycin cream to base of wound bed gauze toe immobilizer, please reuse this with dressing changes secure with hypafix tape Darco shoe Please change on Tuesday and Tuesday at home return to clinic in one week Get prompt medical attention if any the [...] recorded. Surgeries None recorded. Imaging None recorded. Vitals 06/11/2021 10:00AM Established Patient 30 Height Weight BMI Blood Pressure 5 ft 8 in 198.8 lbs 30.2 kg/m2 (1) 184/104 mm[ Hg] (2) 168/99 mm[Hg ] 05/28/2021 09:00AM Established Patient 30 Height Weight BMI Blood Pressure 5 ft 8 in 200.1 lbs 30.4 kg/m2 145/103 mm[Hg] 05/14/2021 08:30AM Established Patient 30 Height Weight BMI Blood Pressure 5 ft 8 in 196.9 lbs 29.9 kg/m2 170/100 mm[Hg] 05/07/2021 09:00AM Established Patient 30 Height Weight BMI Blood Pressure 5 ft 8 in 194.6 lbs 29.6 kg/m2 167/99 mm[Hg] 04/16/2021 10:30AM New Patient 60 Height Weight BMI Blood Pressure 5 ft 8 in 196.7 lbs 29.9 kg/m2 171/97 mm[Hg]
[2021-08-18] MEDS ORDERED: ONDANSETRON 4 MG/2 ML VIAL IV PRN (21:56)
[2021-08-18] MEDS ORDERED: HYDROmorphone 1 MG/ML SYRINGE IV PRN (21:56)
--- NOTE | 2021-08-18 21:56 | General Surg History&Physical ---
HPI History of Present Illness Patient information: Note initiated : 08/18/21 at 9:35 pm Service Date, if different from initiated Date: [] Patient: Gregory Mariee 55 y/o M admitted on 08/18/21 for abscess. Chief Complaint: [] Chief complaint: Perianal and perineal abscess History of present illness: Mr. Mariee is a 55 year old M with history of onset of swelling in the right perianal and perineal area at the base of the scrotum since 07 August. He states that he had had recent cataract surgery and could not drive and he could not get a ride to the hospital or to the doctor's office. He had progression of enlargement of both of the abscesses since that time. On the evening of 15 August the perianal area ruptured and he noticed a small amount of drainage from the base of his scrotum. He had primarily bloody pus. He has not been febrile but noted that his blood sugars were high. He has only been on basal insulin and Metformin however his Metformin was depleted. Patient was seen at [facility] ER and was transferred here because of lack of surgery coverage at that facility. Patient has a history of poorly controlled diabetes. His last known hemoglobin A1c was over 12. He does not get adequate coverage by primary care provider to control his diabetes. Blood sugar earlier tonight was 523. Hemoglobin A1c will be checked tonight Constitutional Constitutional: Present fatigue, lethargy, malaise, night sweats and weight loss EENT Eyes: Present blurry vision, change in vision, loss of vision and other visual disturbances (Status post bilateral cataract extraction) Cardiovascular Cardiovascular: Present irregular heart rhythm, palpatations and rapid heart rate Respiratory Respiratory: Absent cough, dyspnea or dyspnea on exertion Gastrointestinal Gastrointestinal: Absent abdominal pain, constipation, heartburn, nausea or vomiting Genitourinary Genitourinary: dysuria, genital pain, urinary frequency, urinary urgency and other Musculoskeletal Musculoskeletal: Present abnormal gait, arthralgias, muscle weakness, myalgias and numbness Neurological Neurological: Present abnormal gait, loss of vision (Status post bilateral cataract extraction), radicular pain, restless legs, sensory deficit and tingling Hematologic/Lymphatic Hematologic/Lymphatic: Absent easy bleeding, easy bruising or lymphadenopathy Allergic/Immunologic Allergic/Immunologic: Absent tongue swelling, throat swelling, uticaria, wheezing or lip swelling PFSH PFSH All Active Problems (Updated 08/18/21 @ 21:51 by Leti Rubio MD) Hypertension (Acute) Bilateral cataracts (Acute) Diabetic peripheral neuropathy (Acute) Diabetes type 2, uncontrolled (Acute) Abscess of superficial perineal space (Acute) Perirectal abscess (Acute) Family History (Updated 08/18/21 @ 21:53 by Leti Rubio MD) Mother Diabetes mellitus Father , Multiple myeloma No problems noted. MEDS/ALLERGIES Home Medications and Allergies Home Medications Medication Instructions Recorded Confirmed Type alogliptin 6.25 mg tablet 6.25 mg PO QDAY 08/18/21 08/18/21 History ascorbic acid (vitamin C) 1,000 mg 2 g PO QDAY 08/18/21 08/18/21 History tablet cholecalciferol (vitamin D3) 125 125 mcg PO QDAY 08/18/21 08/18/21 History mcg (5,000 unit) capsule insulin glargine 100 unit/mL 23 unit SUBCUT HS 08/18/21 08/18/21 History subcutaneous cartridge lisinopril 5 mg tablet 7.5 mg PO QDAY 08/18/21 08/18/21 History metformin 1,000 mg tablet 1,000 mg PO BIDWMEAL 08/18/21 08/18/21 History methocarbamol 750 mg tablet 750 mg PO TID PRN 08/18/21 08/18/21 History pregabalin 150 mg capsule 150 mg PO BID 08/18/21 08/18/21 History venlafaxine 150 mg 150 mg PO QDAY 08/18/21 08/18/21 History capsule,extended release 24 hr Allergies Allergy/AdvReac Type Severity Reaction Status Date / Time cocoa butter Allergy Severe Rash Verified 08/18/21 21:01 Physical Examination Vital Signs Vital signs: Temp Pulse Resp BP Pulse Ox 98.1 F 95 H 20 155/97 95 08/18/21 20:45 08/18/21 20:45 08/18/21 20:45 08/18/21 20:45 08/18/21 20:45 General physical appearance General physical exam: well developed, well nourished, moderate distress and moderate pain Eyes Eye exam: other (Operative changes of both eyes due to cataract surgery) ENT ENT exam: normal mucosa and decreased hearing Head Head exam IM: Present atraumatic, normal inspection and normocephalic Neck Neck exam: no masses, no bruits, trachea midline, no lymphadenopathy and no venous distension Cardiovascular Cardiovascular exam IM: Present normal rate and rhythm, RRR, +S1 and +S2; Absent gallop, JVD or systolic murmur Respiratory Respiratory exam: normal expansion, normal respiratory effort and clear to auscultation Abdomen Abdomen: Present soft, non tender and bowel sounds (Normal bowel sounds); Absent organomegaly, masses or distended Genitourinary Genitourinary (Male): Present other (Develop an abscess at baseline scrotum) Rectum Rectum: Present normal sphincter tone, no hemorrhoids and other (Right buttock abscess with drainage) Integumentary Integumentary: Present no rash, no growths and no abnormal pigmentation Neurologic Neurologic: Present normal coordination and other (Severe peripheral neuropathy gait changes) Psychiatric Psychiatric: Present oriented to time, oriented to person, oriented to place, speech is normal and memory intact Results Labs Labs: All other labs normal. A/P Assessment and plan (1) Perirectal abscess: Status: Acute (2) Abscess of superficial perineal space: Status: Acute (3) Diabetes type 2, uncontrolled: Status: Acute (4) Diabetic peripheral neuropathy: Status: Acute (5) Bilateral cataracts: Status: Acute (6) Hypertension: Status: Acute Narrative A/P Narrative: Humalog 15 units subcu Lantus 30 units subcu now Accu-Cheks every 6 hours with medium Humalog scale coverage Stat hemoglobin A1c Zosyn 3.375 g IV every 6 hours Vancomycin 1 g IV every 12 hours N.p.o. after midnight Lab studies to include chest x-ray, EKG, lactate, T4, TSH Consent for incision and drainage of perineal and perianal abscess in the a.m. Time Spent With Patient Time: Total time spent is greater than 50% in coordination of care (as documented) at patient's floor/unit and/or counseling patient:
[2021-08-18] MEDS ORDERED: INSULIN GLARGINE, HUMAN 1 UNIT/0.01 ML SQ ONE ×2 (22:26→22:39)
[2021-08-18] MEDS ORDERED: METHOCARBAMOL 750 MG TABLET PO PRN (22:27)
[2021-08-18] MEDS ORDERED: INSULIN LISPRO 1 UNIT/0.01 ML UNIT SQ ONE (22:39)
[2021-08-18] MEDS: 0.9 % SODIUM CHLORIDE 1,000 ML IV SCH (22:41)
[2021-08-18] MEDS: PIPERACILLIN SODIUM/TAZOBACTAM 3.375 GM in DEXTROSE 5% IN WATER 50 ML IV SCH (22:43)
[2021-08-18] MEDS: INSULIN LISPRO 1 UNIT/0.01 ML UNIT SQ SCH (22:45)
[2021-08-18] MEDS: 0.9 % SODIUM CHLORIDE 10 ML SYRINGE IV SCH (22:47)
[2021-08-19] MEDS: PIPERACILLIN SODIUM/TAZOBACTAM 3.375 GM in DEXTROSE 5% IN WATER 50 ML IV SCH ×3 (04:21→18:55)
[2021-08-19] MEDS: 0.9 % SODIUM CHLORIDE 10 ML SYRINGE IV SCH ×3 (05:53→21:23)
[2021-08-19] MEDS: INSULIN LISPRO 1 UNIT/0.01 ML UNIT SQ SCH ×4 (05:56→23:59)
[2021-08-19] MEDS ORDERED: INSULIN LISPRO 1 UNIT/0.01 ML UNIT SQ ONE (06:01)
[2021-08-19 07:47] LABS: Basophils # (Auto) 0.03 K/mcL (0.00-0.30); Basophils % (Auto) 0.3 % (0.0-2.0); Eosinophils # (Auto) 0.23 K/mcL (0.00-0.70); Eosinophils % (Auto) 2.2 % (0.0-7.0); Hematocrit 42.2 % (40.1-51.0); Hemoglobin 14.1 g/dL (13.7-17.5); Lymphocytes # (Auto) 1.52 K/mcL (1.50-4.80); Lymphocytes % (Auto) 14.5 % (15.5-49.0); Mean Cell Volume 88.8 fL (80.0-100.0); Mean Corpuscular HGB Conc 33.4 g/dL (31.0-36.0); Mean Platelet Volume 9.7 fL (7.4-10.4); Monocytes # (Auto) 0.76 K/mcL (0.10-0.90); Monocytes % (Auto) 7.2 % (1.0-12.0); Neutrophils % (Auto) 75.8 % (38.0-78.0); Platelet Count 268 K/mcL (140-440); RBC 4.75 M/mcL (4.63-6.08); Red Cell Distribution Width 11.8 % (11.5-14.5); WBC 10.5 K/mcL (4.5-11.0)
--- NOTE | 2021-08-19 07:56 | XRay Report ---
HISTORY: Preop for abscess drainage FINDINGS: The lungs are clear and well expanded. The heart size, pulmonary vasculature, mediastinum, olive and pleura are normal. Old healed fracture is present posterolaterally in the right fifth rib. There is mild arthritis in both acromioclavicular joints, right worse than left. IMPRESSION: Normal exam Interpreted and Authenticated by: Nelson Lindsay 08/19/21
[2021-08-19] MEDS: 0.9 % SODIUM CHLORIDE 1,000 ML IV SCH ×2 (08:07→15:29)
[2021-08-19 08:25] LABS: ALT/SGPT 7 U/L (<40); AST/SGOT 7 U/L (<40); Albumin 3.3 gm/dL (3.2-5.2); Albumin/Globulin Ratio 1.1 (1.0-2.3); Alkaline Phosphatase 104 U/L (39-117); Bilirubin,Direct < 0.2 mg/dL (0-0.3); Bilirubin,Total 0.3 mg/dL (0.1-1.0); Blood Urea Nitrogen 12 mg/dL (6-20); Calcium 8.6 mg/dL (8.6-10.4); Carbon Dioxide 24 mmol/L (22-30); Chloride 100 mmol/L (96-108); Globulin 3.1 gm/dL (2.2-3.7); Glomerular Filtration Rate 74; Glucose 200 mg/dL (70-105); Lactate Dehydrogenase 84 U/L (135-225); Phosphorous 3.3 mg/dL (2.5-4.5); Triglycerides 150 mg/dL (<150); Uric Acid 3.1 mg/dL (2.5-8.0)
[2021-08-19] MEDS: PREGABALIN 150 MG CAPSULE PO SCH ×3 (09:12→21:23)
[2021-08-19] MEDS: VENLAFAXINE 150 MG CAP.XL.24H PO SCH ×2 (09:12→16:20)
[2021-08-19] MEDS: LISINOPRIL 5 MG TABLET PO SCH (09:12)
[2021-08-19] MEDS: DOCUSATE SODIUM 100 MG CAPSULE PO SCH ×2 (09:12→21:23)
[2021-08-19] MEDS ORDERED: DEXAMETHASONE 10 MG/ML VIAL ONE (11:37)
[2021-08-19] MEDS ORDERED: HYDROmorphone 1 MG/ML SYRINGE ONE (11:37)
[2021-08-19] MEDS ORDERED: LIDOCAINE HCL/PF 100 MG/5 ML SYRINGE IV ONE (11:37)
[2021-08-19] MEDS ORDERED: MIDAZOLAM 2 MG/2 ML VIAL ONE (11:37)
[2021-08-19] MEDS ORDERED: KETAMINE 50 MG/ML Syringe (ANEST) IV ONE (11:37)
[2021-08-19] MEDS ORDERED: GLYCOPYRROLATE 0.2 MG/ML VIAL IV ONE (11:37)
[2021-08-19] MEDS ORDERED: fentaNYL 100 MCG/2 ML VIAL IV ONE (11:37)
[2021-08-19] MEDS ORDERED: MAGNESIUM SULFATE 2 GM/50 ML BAG IV ONE (11:37)
[2021-08-19] MEDS ORDERED: PROPOFOL 200 MG/20 ML VIAL IV ONE (11:37)
[2021-08-19] MEDS ORDERED: ONDANSETRON 4 MG/2 ML VIAL ONE (11:37)
[2021-08-19] MEDS ORDERED: NALOXONE HCL 0.4 MG/ML VIAL IV PRN (11:55)
[2021-08-19] MEDS ORDERED: ONDANSETRON 4 MG/2 ML VIAL IV PRN (11:55)
[2021-08-19] MEDS ORDERED: ACETAMINOPHEN 1,000 MG/100 ML BAG IV ONE (11:55)
[2021-08-19] MEDS ORDERED: METHOCARBAMOL 1,000 MG/10 ML VIAL IV PRN (11:55)
[2021-08-19] MEDS ORDERED: MEPERIDINE 25 MG/ML VIAL IV PRN (11:55)
[2021-08-19] MEDS ORDERED: FLUMAZENIL 0.1 MG/ML ML IV PRN (11:55)
[2021-08-19] MEDS ORDERED: LABETALOL 5 MG/ML ML IV PRN (11:55)
[2021-08-19] MEDS ORDERED: METOPROLOL TARTRATE 5 MG/5 ML VIAL IV PRN (11:55)
[2021-08-19] MEDS ORDERED: IPRATROPIUM/ALBUTEROL 3 ML AMPUL.NEB NEB PRN (11:55)
[2021-08-19] MEDS ORDERED: BENZOCAINE/MENTHOL 1 LOZENGE PO PRN (11:55)
[2021-08-19] MEDS ORDERED: LACTATED RINGERS 250 ML IV PRN (11:55)
[2021-08-19] MEDS ORDERED: fentaNYL 100 MCG/2 ML VIAL IV PRN (11:55)
[2021-08-19] MEDS ORDERED: LACTATED RINGERS 1,000 ML IV SCH (12:00)
--- NOTE | 2021-08-19 12:10 | Brief Operative Note ---
Brief Operative Note Date of procedure: 08/19/21 Pre-op diagnosis: perirectal abscess Post-op diagnosis: other (perirectal abscess) Procedure: incision and drainage of perirectal abscess Grafts/Implants: No (levar drain x1) Anesthesia: GLMA Findings: LEFT PERIRECTAL ABSCESS EXTENDING TO BASE OF SCROTUM IN MIDLINE Complications: none Surgeon: Leti Rubio Specimens Removed/Pathology: other (CULTURE OF PURULENT DRAINAGE) Condition: stable Disposition: PACU
[2021-08-19] MEDS ORDERED: VANCOMYCIN PER PHARMACY IV SCH (13:24)
[2021-08-19] MEDS ORDERED: VANCOMYCIN 1,000 MG in 0.9 % SODIUM CHLORIDE 250 ML IV ONE (13:24)
[2021-08-19] MEDS: HYDROcodone/APAP 10/325MG TABLET PO PRN (15:29)
[2021-08-19] MEDS: VANCOMYCIN 1,250 MG in 0.9 % SODIUM CHLORIDE 500 ML IV SCH ×2 (16:15→22:56)
[2021-08-19] MEDS ORDERED: INSULIN GLARGINE, HUMAN 1 UNIT/0.01 ML SQ SCH (21:00)
[2021-08-19] MEDS: INSULIN GLARGINE, HUMAN 1 UNIT/0.01 ML SQ SCH (21:22)
[2021-08-19] MEDS: SENNOSIDES 1 TABLET PO SCH (21:23)
[2021-08-19] MEDS: CARBOXYMETHYLCELLULOSE SODIUM 1 EACH DROPER.GEL OU SCH (21:23)
[2021-08-20] MEDS: PIPERACILLIN SODIUM/TAZOBACTAM 3.375 GM in DEXTROSE 5% IN WATER 50 ML IV SCH ×5 (00:38→23:56)
[2021-08-20] MEDS: 0.9 % SODIUM CHLORIDE 1,000 ML IV SCH ×3 (03:49→23:30)
[2021-08-20] MEDS: INSULIN LISPRO 1 UNIT/0.01 ML UNIT SQ SCH ×3 (06:01→16:44)
[2021-08-20] MEDS: 0.9 % SODIUM CHLORIDE 10 ML SYRINGE IV SCH ×3 (06:02→21:20)
[2021-08-20] MEDS: HYDROcodone/APAP 10/325MG TABLET PO PRN ×2 (06:45→21:29)
[2021-08-20] MEDS: PREGABALIN 150 MG CAPSULE PO SCH ×2 (09:18→21:15)
[2021-08-20] MEDS: VENLAFAXINE 150 MG CAP.XL.24H PO SCH (09:18)
[2021-08-20] MEDS: DOCUSATE SODIUM 100 MG CAPSULE PO SCH ×2 (09:18→21:21)
[2021-08-20] MEDS: LISINOPRIL 5 MG TABLET PO SCH (09:19)
[2021-08-20] MEDS: CARBOXYMETHYLCELLULOSE SODIUM 1 EACH DROPER.GEL OU SCH ×2 (09:19→21:20)
[2021-08-20] MEDS: VANCOMYCIN 1,250 MG in 0.9 % SODIUM CHLORIDE 500 ML IV SCH ×2 (10:48→21:28)
--- NOTE | 2021-08-20 12:22 | EKG ---
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 Measurements Intervals [place] Rate: 82 P: 62 CO: 179 QRS: 8 QRSD: 90 T: 36 QT: 361 QTc: 422 Interpretive Statements Sinus rhythm Probable left atrial enlargement Electronically Signed On 08-20-2021 12:22:31 PST by Maynor Lindsay M.D. /store/[email or web address]/[id number]
--- NOTE | 2021-08-20 18:11 | General Surgery Progress Note ---
SUBJECTIVE Subjective Patient information: Note initiated : 08/20/21 at 6:08 pm Service Date, if different from initiated Date: [] Patient: Gregory Mariee 55 y/o M admitted on 08/18/21 for abscess. Chief Complaint: [] Interval history: Patient states that he feels better. He has a moderate amount of purulent drainage. There is no rectal bleeding. Constitutional Vitals: Vital Signs Temp Pulse Resp BP Pulse Ox 98.4 F 63 20 148/80 96 08/20/21 11:40 08/20/21 11:40 08/20/21 03:57 08/20/21 11:40 08/20/21 11:40 Period Temp Pulse Resp BP Sys/Mckinley Pulse Ox Last 24 Hr 97.0 F-98.4 F 63-81 14-20 147-175/73-87 93-97 Intake and Output 08/20/21 08/20/21 08/20/21 05:59 13:59 21:59 Intake Total 2490 3160 800 Output Total 1275 750 600 Balance 1215 2410 200 Weight 193 lb 4.8 oz Patient Weight 08/21/21 05:59 Weight 193 lb 4.8 oz Intake & Output: Intake & Output 08/20/21 08/20/21 08/20/21 05:59 13:59 21:59 Intake Total 2490 3160 800 Output Total 1275 750 600 Balance 1215 2410 200 Weight 193 lb 4.8 oz Intake: IV 1550 1600 Sodium Chloride 0.9% 1,000 ml @ 1000 1000 125 mls/hr IV .Q8H DAVID Rx#: [id number] Zosyn 3.375 gm In Dextrose 5% 50 100 in Water 50 ml @ 100 mls/hr IV Q6H DAVID Rx#:[id number] Vancomycin 1,250 mg In Sodium 500 500 Chloride 0.9% 500 ml @ 333.3 mls/hr IV Q12H DVAID Rx#: [id number] Oral 940 1560 800 Output: Void Amount 1275 750 600 Other: Meal Lunch Dinner Percent of Meal Consumed 100% 100% Feeding Ability Independent Independent Urine Appearance Clear Urine Color Bright Yellow Stool Size Moderate Stool Color Brown Stool Consistency Soft Formed Neck Neck exam: Present full ROM; Absent lymphadenopathy or tenderness Respiratory Respiratory exam: Present normal respiratory exam and CTAB; Absent rhonchi or wheezes Cardiovascular Cardiovascular exam: Present normal rate and rhythm, RRR, +S1 and +S2; Absent gallop or JVD GI/Abdominal GI/Abdominal exam: Present normal bowel sounds and soft; Absent distended Rectal Additional comments: Decreased swelling and cellulitis of left perianal space; edema at base of scrotum is significantly improved; no extension of inflammation into his scrotal skin A/P Assessment and plan (1) Abscess of superficial perineal space: Status: Acute (2) Perirectal abscess: Status: Acute (3) Diabetes type 2, uncontrolled: Status: Acute (4) Diabetic peripheral neuropathy: Status: Acute (5) Bilateral cataracts: Status: Acute Narrative A/P Narrative: Continue present antibiotic therapy and local wound care Check labs in the a.m. Time Spent With Patient Time: Total time spent is greater than 50% in coordination of care (as documented) at patient's floor/unit and/or counseling patient:
[2021-08-20] MEDS: SENNOSIDES 1 TABLET PO SCH (21:21)
[2021-08-20] MEDS: INSULIN GLARGINE, HUMAN 1 UNIT/0.01 ML SQ SCH (21:29)
[2021-08-21] MEDS: INSULIN LISPRO 1 UNIT/0.01 ML UNIT SQ SCH ×5 (00:40→23:46)
[2021-08-21] MEDS: 0.9 % SODIUM CHLORIDE 10 ML SYRINGE IV SCH ×3 (05:33→20:45)
[2021-08-21 07:07] LABS: Basophils # (Auto) 0.03 K/mcL (0.00-0.30); Basophils % (Auto) 0.4 % (0.0-2.0); Eosinophils # (Auto) 0.35 K/mcL (0.00-0.70); Eosinophils % (Auto) 4.2 % (0.0-7.0); Hematocrit 38.9 % (40.1-51.0); Hemoglobin 12.8 g/dL (13.7-17.5); Lymphocytes # (Auto) 1.69 K/mcL (1.50-4.80); Lymphocytes % (Auto) 20.1 % (15.5-49.0); Mean Cell Volume 90.5 fL (80.0-100.0); Mean Corpuscular HGB Conc 32.9 g/dL (31.0-36.0); Mean Platelet Volume 9.4 fL (7.4-10.4); Monocytes # (Auto) 0.62 K/mcL (0.10-0.90); Monocytes % (Auto) 7.4 % (1.0-12.0); Neutrophils % (Auto) 67.9 % (38.0-78.0); Platelet Count 257 K/mcL (140-440); Red Cell Distribution Width 11.9 % (11.5-14.5); WBC 8.4 K/mcL (4.5-11.0)
[2021-08-21] MEDS: HYDROcodone/APAP 10/325MG TABLET PO PRN (07:23)
[2021-08-21] MEDS: PIPERACILLIN SODIUM/TAZOBACTAM 3.375 GM in DEXTROSE 5% IN WATER 50 ML IV SCH ×4 (07:24→23:05)
[2021-08-21 07:51] LABS: ALT/SGPT 7 U/L (<40); AST/SGOT 8 U/L (<40); Albumin 3.5 gm/dL (3.2-5.2); Albumin/Globulin Ratio 1.5 (1.0-2.3); Alkaline Phosphatase 87 U/L (39-117); Bilirubin,Direct < 0.2 mg/dL (0-0.3); Bilirubin,Total 0.2 mg/dL (0.1-1.0); Blood Urea Nitrogen 12 mg/dL (6-20); Calcium 8.6 mg/dL (8.6-10.4); Carbon Dioxide 26 mmol/L (22-30); Chloride 104 mmol/L (96-108); Globulin 2.3 gm/dL (2.2-3.7); Glomerular Filtration Rate 74; Glucose 165 mg/dL (70-105); Lactate Dehydrogenase 97 U/L (135-225); Phosphorous 3.5 mg/dL (2.5-4.5); Triglycerides 127 mg/dL (<150); Uric Acid 2.5 mg/dL (2.5-8.0)
[2021-08-21] MEDS: VANCOMYCIN 1,250 MG in 0.9 % SODIUM CHLORIDE 500 ML IV SCH ×2 (08:33→20:47)
[2021-08-21] MEDS: LISINOPRIL 5 MG TABLET PO SCH (08:34)
[2021-08-21] MEDS: DOCUSATE SODIUM 100 MG CAPSULE PO SCH ×2 (08:34→20:46)
[2021-08-21] MEDS: VENLAFAXINE 150 MG CAP.XL.24H PO SCH (08:34)
[2021-08-21] MEDS: PREGABALIN 150 MG CAPSULE PO SCH ×2 (08:34→20:46)
[2021-08-21] MEDS: CARBOXYMETHYLCELLULOSE SODIUM 1 EACH DROPER.GEL OU SCH ×2 (08:35→20:45)
--- NOTE | 2021-08-21 16:34 | General Surgery Progress Note ---
SUBJECTIVE Subjective Patient information: Note initiated : 08/21/21 at 4:31 pm Service Date, if different from initiated Date: [] Patient: Gregory Mariee 55 y/o M admitted on 08/18/21 for abscess. Chief Complaint: [] Principal diagnosis: Perirectal abscess Interval history: Patient continues to feel better. He has much less pain in the perineal space. White blood count 8.4, hemoglobin 12.8, hematocrit 38.9; glucose 165 Constitutional Vitals: Vital Signs Temp Pulse Resp BP Pulse Ox 96.9 F L 60 16 163/93 95 08/21/21 12:35 08/21/21 12:35 08/21/21 12:35 08/21/21 12:35 08/21/21 12:35 Period Temp Pulse Resp BP Sys/Mckinley Pulse Ox Last 24 Hr 96.9 F-98 F 55-70 16-18 130-163/78-93 95-97 Intake and Output 08/21/21 08/21/21 08/21/21 05:59 13:59 21:59 Intake Total 1190 1750 Output Total 550 1900 Balance 640 -150 Intake & Output: Intake & Output 08/21/21 08/21/21 08/21/21 05:59 13:59 21:59 Intake Total 1190 1750 Output Total 550 1900 Balance 640 -150 Intake: IV 550 600 Zosyn 3.375 gm In Dextrose 5% 50 100 in Water 50 ml @ 100 mls/hr IV Q6H DAVID Rx#:[id number] Vancomycin 1,250 mg In Sodium 500 500 Chloride 0.9% 500 ml @ 333.3 mls/hr IV Q12H DAVID Rx#: [id number] Oral 640 1150 Output: Urine Catheter Amount 700 Void Amount 550 1200 Other: Meal Lunch Percent of Meal Consumed 100% Feeding Ability Independent Urine Appearance Clear Urine Color Bright Yellow Urine Odor Normal Respiratory Respiratory exam: Present normal respiratory exam and CTAB; Absent rales Cardiovascular Cardiovascular exam: Present normal rate and rhythm, RRR, +S1 and +S2; Absent JVD GI/Abdominal GI/Abdominal exam: Present normal bowel sounds and soft; Absent distended or tenderness Rectal Additional comments: Decreased swelling in the right perianal space and anterior midline. There is significant decrease in drainage A/P Assessment and plan (1) Perirectal abscess: Status: Acute (2) Diabetes type 2, uncontrolled: Status: Acute Time Spent With Patient Time: Total time spent is greater than 50% in coordination of care (as documented) at patient's floor/unit and/or counseling patient:
[2021-08-21] MEDS: INSULIN GLARGINE, HUMAN 1 UNIT/0.01 ML SQ SCH (20:45)
[2021-08-21] MEDS: SENNOSIDES 1 TABLET PO SCH (20:46)
[2021-08-22] MEDS: HYDROcodone/APAP 10/325MG TABLET PO PRN (02:03)
[2021-08-22] MEDS: INSULIN LISPRO 1 UNIT/0.01 ML UNIT SQ SCH (06:01)
[2021-08-22] MEDS: PIPERACILLIN SODIUM/TAZOBACTAM 3.375 GM in DEXTROSE 5% IN WATER 50 ML IV SCH (06:01)
[2021-08-22] MEDS: 0.9 % SODIUM CHLORIDE 10 ML SYRINGE IV SCH (06:02)
[2021-08-22 07:35] LABS: Basophils # (Auto) 0.06 K/mcL (0.00-0.30); Basophils % (Auto) 0.6 % (0.0-2.0); Eosinophils # (Auto) 0.37 K/mcL (0.00-0.70); Eosinophils % (Auto) 3.8 % (0.0-7.0); Hemoglobin 13.7 g/dL (13.7-17.5); Lymphocytes # (Auto) 1.89 K/mcL (1.50-4.80); Lymphocytes % (Auto) 19.4 % (15.5-49.0); Mean Cell Volume 88.7 fL (80.0-100.0); Mean Corpuscular HGB Conc 33.4 g/dL (31.0-36.0); Mean Platelet Volume 9.4 fL (7.4-10.4); Monocytes # (Auto) 0.62 K/mcL (0.10-0.90); Monocytes % (Auto) 6.4 % (1.0-12.0); Neutrophils % (Auto) 69.8 % (38.0-78.0); Platelet Count 277 K/mcL (140-440); RBC 4.62 M/mcL (4.63-6.08); Red Cell Distribution Width 11.6 % (11.5-14.5); WBC 9.7 K/mcL (4.5-11.0)
[2021-08-22 07:52] LABS: ALT/SGPT 8 U/L (<40); AST/SGOT 9 U/L (<40); Albumin 3.6 gm/dL (3.2-5.2); Albumin/Globulin Ratio 1.3 (1.0-2.3); Alkaline Phosphatase 93 U/L (39-117); Bilirubin,Direct < 0.2 mg/dL (0-0.3); Bilirubin,Total 0.3 mg/dL (0.1-1.0); Blood Urea Nitrogen 8 mg/dL (6-20); Calcium 9.2 mg/dL (8.6-10.4); Carbon Dioxide 23 mmol/L (22-30); Chloride 103 mmol/L (96-108); Globulin 2.7 gm/dL (2.2-3.7); Glomerular Filtration Rate 83; Glucose 153 mg/dL (70-105); Lactate Dehydrogenase 100 U/L (135-225); Phosphorous 4.1 mg/dL (2.5-4.5); Triglycerides 152 mg/dL (<150); Uric Acid 2.6 mg/dL (2.5-8.0)
[2021-08-22] MEDS: VENLAFAXINE 150 MG CAP.XL.24H PO SCH (08:49)
[2021-08-22] MEDS: CARBOXYMETHYLCELLULOSE SODIUM 1 EACH DROPER.GEL OU SCH (08:49)
[2021-08-22] MEDS: DOCUSATE SODIUM 100 MG CAPSULE PO SCH (08:49)
[2021-08-22] MEDS: LISINOPRIL 5 MG TABLET PO SCH (08:49)
[2021-08-22] MEDS: PREGABALIN 150 MG CAPSULE PO SCH (08:49)
--- NOTE | 2021-08-22 09:51 | Discharge Summary ---
Discharge Provider Provider Patient information: Note initiated : 08/22/21 at 9:42 am Service Date, if different from initiated Date: [] Patient: Gregory Mariee 55 y/o M admitted on 08/18/21 for abscess. Chief Complaint: [] Date of admission: 08/18/21 20:40 Discharge date: 08/22/21 Primary care physician: Nelson Ruiz Admitting clinician: Leti Rubio Attending physician on admission: Leti Rubio Attending physician on discharge: Leti Rubio Discharging clinician: Leti Rubio COURSE Hospital Course Hospital course: 55-year-old male with history of perirectal abscess. He tried nonoperative management but was unsuccessful. He was seen in the emergency room and admitted. Incision and drainage was carried out. The operative findings revealed a tract from the right perianal space to the base of the scrotum. It did not involve the scrotal fascia. Debridement was done and drain was placed. He has gradually improved and is now stable. He has significant reduction in cellulitis and induration. Cultures grew out Streptococcus aginosus. Patient is clinically stable and will be discharged home on Augmentin. Discharge diagnosis: . Rectal abscess Secondary discharge diagnosis: Uncontrolled diabetes mellitus Hypertension Diabetic peripheral neuropathy Bilateral cataracts status post extraction Reason for admission: Perirectal abscess Procedures: Incision and drainage of perirectal abscess Pertinent studies/significant findings: None Complications: None Time Spent with Patient Time attestation: Total time spent providing and/or coordinating discharge services: Physical Examination Vital Signs Vital signs: Temp Pulse Resp BP Pulse Ox 97.3 F 66 18 138/86 97 08/22/21 03:14 08/22/21 03:14 08/22/21 03:14 08/22/21 03:14 08/22/21 03:14 General physical appearance General physical exam: well developed, well nourished, no distress and moderate pain Eyes Eye exam: normal ocular movement and other (Operative changes of both pupils from cataract surgery) ENT ENT exam: normal mucosa and no hearing loss Head Head exam IM: Present atraumatic, normal inspection and normocephalic Neck Neck exam: no masses, no bruits, trachea midline, no lymphadenopathy and no venous distension Cardiovascular Cardiovascular exam IM: Present normal rate and rhythm, RRR, +S1 and +S2; Absent JVD Respiratory Respiratory exam: normal expansion, normal respiratory effort and clear to auscultation Abdomen Abdomen: Present soft, non tender and bowel sounds (Normal bowel sounds) Rectum Rectum: Present normal sphincter tone and other (Healing operative sites perianal space); Absent no hemorrhoids or no masses Integumentary Integumentary: Present no rash, no growths and no abnormal pigmentation Neurologic Neurologic: Present normal coordination and normal sensation Musculoskeletal Musculoskeletal: Present normal gait and normal posture Psychiatric Psychiatric: Present oriented to time, oriented to person, oriented to place, speech is normal, memory intact and other Discharge Plan Patient/Caregiver Discharge Instructions Activity: increase activity as tolerated Diet: Regular Diet and Consistent Carbohydrate Prescriptions: New hydrocodone-acetaminophen 10-325 mg Tablet 1 tab PO Q4H PRN (Reason: Pain) Qty: 40 0RF amoxicillin-pot clavulanate [Augmentin] 875-125 mg tablet 1 tab PO BID Qty: 30 0RF Continued venlafaxine 150 mg Capsule,Extended Release 24hr 150 mg PO QDAY 0RF metformin 1,000 mg Tablet 1,000 mg PO BIDWMEAL 0RF lisinopril 5 mg Tablet 7.5 mg PO QDAY 0RF cholecalciferol (vitamin D3) 125 mcg (5,000 unit) Capsule 125 mcg PO QDAY 0RF pregabalin 150 mg Capsule 150 mg PO BID 0RF insulin glargine 100 unit/mL Cartridge 23 unit SUBCUT HS 0RF ascorbic acid (vitamin C) 1,000 mg Tablet 2 g PO QDAY 0RF methocarbamol 750 mg Tablet 750 mg PO TID PRN (Reason: Muscle Spasm) 0RF alogliptin 6.25 mg Tablet 6.25 mg PO QDAY 0RF Follow Up Plan Follow up with: Leti Rubio MD [Physician] - (Contact office for an appointment in 2 weeks) Patient Disposition: Home, Self-Care Health Concerns: Patient is encouraged to be more diligent in taking his diabetic medication and checking his blood sugar. Prognosis: Good Rehab Potential: Good I certify that the patient requires SNF services: No Overall status at discharge: patient is progressing back to baseline Discharge Orders: Discharge Order (Routine); Ordered 08/22/21 Ordered By: Leti Rubio Pending Pending Pending: Resuscitation Status Resuscitate (Full Code) Diet Consistent Carbohydrate Diet Start TueAug 19 1537 Hydrocodone Bitart/Acetaminophen (Hydrocodone/Apap 10/325mg Tablet) 1 tab PO Q4HP PRN; Protocol PRN Reason: Per Pain Protocol Last Admin: 08/22/21 02:03 Dose: 1 tab Documented by: Admin: 08/21/21 07:23 Dose: 1 tab Documented by: Admin: 08/20/21 21:29 Dose: 1 tab Documented by: Admin: 08/20/21 06:45 Dose: 1 tab Documented by: Admin: 08/19/21 15:29 Dose: 1 tab Documented by: IDA Artificial Tears (Carboxymethylcellulose Sodium 1 Each Droper.Gel) 1 each OU BID DAVID Last Admin: 08/22/21 08:49 Dose: 1 each Documented by: Admin: 08/21/21 20:45 Dose: 1 each Documented by: Admin: 08/21/21 08:35 Dose: 1 each Documented by: Admin: 08/20/21 21:20 Dose: 1 each Documented by: Admin: 08/20/21 09:19 Dose: 1 each Documented by: Admin: 08/19/21 21:23 Dose: 1 each Documented by: TK Diagnostic Test (Pha) (Accu-Chek 1 Each Strip) 1 each FS Q6 DAVID; Protocol Last Admin: 08/22/21 06:01 Dose: 1 each Documented by: Admin: 08/21/21 23:45 Dose: 1 each Documented by: Admin: 08/21/21 16:57 Dose: 1 each Documented by: Admin: 08/21/21 11:48 Dose: 1 each Documented by: Admin: 08/21/21 05:34 Dose: 1 each Documented by: Admin: 08/21/21 00:37 Dose: 1 each Documented by: Admin: 08/20/21 21:17 Dose: 1 each Documented by: Admin: 08/20/21 16:48 Dose: 1 each Documented by: Admin: 08/20/21 11:42 Dose: 1 each Documented by: Admin: 08/20/21 05:56 Dose: 1 each Documented by: Admin: 08/19/21 23:55 Dose: 1 each Documented by: Admin: 08/19/21 17:29 Dose: 1 each Documented by: Admin: 08/19/21 12:27 Dose: 1 each Documented by: Admin: 08/19/21 05:53 Dose: 1 each Documented by: Admin: 08/18/21 22:44 Dose: 1 each Documented by: TK Docusate Sodium (Docusate Sodium 100 Mg Capsule) 100 mg PO BID DAVID Last Admin: 08/22/21 08:49 Dose: 100 mg Documented by: Admin: 08/21/21 20:46 Dose: 100 mg Documented by: Admin: 08/21/21 08:34 Dose: 100 mg Documented by: Admin: 08/20/21 21:21 Dose: Not Given Documented by: Admin: 08/20/21 09:18 Dose: 100 mg Documented by: Admin: 08/19/21 21:23 Dose: 100 mg Documented by: Admin: 08/19/21 09:12 Dose: Not Given Documented by: IDA Piperacillin Sod/Tazobactam (Sod 3.375 gm/ Dextrose) 50 mls @ 100 mls/hr IV Q6H [facility]; Protocol Last Infusion: 08/22/21 07:12 Dose: 0 mls/hr Documented by: Admin: 08/22/21 06:01 Dose: 100 mls/hr Documented by: Infusion: 08/21/21 23:46 Dose: 0 mls/hr Documented by: Admin: 08/21/21 23:05 Dose: 100 mls/hr Documented by: Infusion: 08/21/21 18:15 Dose: 0 mls/hr Documented by: Admin: 08/21/21 16:57 Dose: 100 mls/hr Documented by: Infusion: 08/21/21 12:20 Dose: 0 mls/hr Documented by: Admin: 08/21/21 11:49 Dose: 100 mls/hr Documented by: Infusion: 08/21/21 08:05 Dose: 0 mls/hr Documented by: Admin: 08/21/21 07:24 Dose: 100 mls/hr Documented by: [email or web address] Infusion: 08/21/21 01:30 Dose: 0 mls/hr Documented by: Admin: 08/20/21 23:56 Dose: 100 mls/hr Documented by: Infusion: 08/20/21 18:24 Dose: 100 mls/hr Documented by: Admin: 08/20/21 17:54 Dose: 100 mls/hr Documented by: [email or web address] Infusion: 08/20/21 13:11 Dose: 100 mls/hr Documented by: [email or web address] Admin: 08/20/21 12:32 Dose: 100 mls/hr Documented by: [email or web address] Infusion: 08/20/21 06:28 Dose: 0 mls/hr Documented by: Admin: 08/20/21 05:53 Dose: 100 mls/hr Documented by: Infusion: 08/20/21 01:08 Dose: 100 mls/hr Documented by: Admin: 08/20/21 00:38 Dose: 100 mls/hr Documented by: Infusion: 08/19/21 19:25 Dose: 100 mls/hr Documented by: Admin: 08/19/21 18:55 Dose: 100 mls/hr Documented by: Infusion: 08/19/21 11:56 Dose: 0 mls/hr Documented by: Admin: 08/19/21 11:33 Dose: 100 mls/hr Documented by: Infusion: 08/19/21 04:55 Dose: 0 mls/hr Documented by: Admin: 08/19/21 04:21 Dose: 100 mls/hr Documented by: Infusion: 08/18/21 23:13 Dose: 100 mls/hr Documented by: Admin: 08/18/21 22:43 Dose: 100 mls/hr Documented by: TK Vancomycin HCl 1,250 mg/ (Sodium Chloride) 500 mls @ 333.3 mls/hr IV Q12H DAVID Last Infusion: 08/21/21 23:10 Dose: 0 mls/hr Documented by: Admin: 08/21/21 20:47 Dose: 333 mls/hr Documented by: Infusion: 08/21/21 10:26 Dose: 0 mls/hr Documented by: Admin: 08/21/21 08:33 Dose: 333.3 mls/hr Documented by: Infusion: 08/20/21 23:55 Dose: 0 mls/hr Documented by: Admin: 08/20/21 21:28 Dose: 333.3 mls/hr Documented by: Infusion: 08/20/21 12:33 Dose: 0 mls/hr Documented by: Admin: 08/20/21 10:48 Dose: 333.3 mls/hr Documented by: Infusion: 08/20/21 00:30 Dose: 0 mls/hr Documented by: Admin: 08/19/21 22:56 Dose: 333.3 mls/hr Documented by: Infusion: 08/19/21 17:46 Dose: 333.3 mls/hr Documented by: Admin: 08/19/21 16:15 Dose: 333.3 mls/hr Documented by: IDA Insulin Glargine (Insulin Glargine, Human 1 Unit/0.01 Ml) 30 unit SQ HS [facility] Last Admin: 08/21/21 20:45 Dose: 30 units Documented by: Admin: 08/20/21 21:29 Dose: 30 units Documented by: Admin: 08/19/21 21:22 Dose: 30 units Documented by: TK Insulin Human Lispro (Insulin Lispro 1 Unit/0.01 Ml Unit) 0 unit SQ Q6 DAVID; Protocol Last Admin: 08/22/21 06:01 Dose: 2 units Documented by: Admin: 08/21/21 23:46 Dose: 8 units Documented by: Admin: 08/21/21 16:57 Dose: 6 units Documented by: Admin: 08/21/21 11:48 Dose: 8 units Documented by: Admin: 08/21/21 05:40 Dose: 4 units Documented by: Admin: 08/21/21 00:40 Dose: 8 units Documented by: Admin: 08/20/21 16:44 Dose: 8 units Documented by: Admin: 08/20/21 11:42 Dose: 6 units Documented by: Admin: 08/20/21 06:01 Dose: 2 units Documented by: Admin: 08/19/21 23:59 Dose: 12 units Documented by: Admin: 08/19/21 18:26 Dose: 8 units Documented by: Admin: 08/19/21 15:53 Dose: Not Given Documented by: Admin: 08/19/21 05:56 Dose: 6 units Documented by: Admin: 08/18/21 22:45 Dose: 12 units Documented by: TK Lisinopril (Lisinopril 5 Mg Tablet) 7.5 mg PO QDAY [facility] Admin: 08/22/21 08:49 Dose: 7.5 mg Documented by: Admin: 08/21/21 08:34 Dose: 7.5 mg Documented by: Admin: 08/20/21 09:19 Dose: 7.5 mg Documented by: Admin: 08/19/21 09:12 Dose: Not Given Documented by: IDA Pregabalin (Pregabalin 150 Mg Capsule) 150 mg PO BID [facility] Admin: 08/22/21 08:49 Dose: 150 mg Documented by: Admin: 08/21/21 20:46 Dose: 150 mg Documented by: Admin: 08/21/21 08:34 Dose: 150 mg Documented by: Admin: 08/20/21 21:15 Dose: 150 mg Documented by: Admin: 08/20/21 09:18 Dose: 150 mg Documented by: Admin: 08/19/21 21:23 Dose: 150 mg Documented by: Admin: 08/19/21 16:20 Dose: 150 mg Documented by: Admin: 08/19/21 09:12 Dose: Not Given Documented by: IDA Senna (Sennosides 1 Tablet) 2 tab PO HS [facility] Admin: 08/21/21 20:46 Dose: 2 tab Documented by: Admin: 08/20/21 21:21 Dose: Not Given Documented by: Admin: 08/19/21 21:23 Dose: 2 tab Documented by: TK Sodium Chloride (0.9 % Sodium Chloride 10 Ml Syringe) 10 ml IV Q8 [facility] Admin: 08/22/21 06:02 Dose: 10 ml Documented by: Admin: 08/21/21 20:45 Dose: 10 ml Documented by: Admin: 08/21/21 15:25 Dose: 10 ml Documented by: Admin: 08/21/21 05:33 Dose: 10 ml Documented by: Admin: 08/20/21 21:20 Dose: 10 ml Documented by: Admin: 08/20/21 13:11 Dose: 10 ml Documented by: Admin: 08/20/21 06:02 Dose: Not Given Documented by: Admin: 08/19/21 21:23 Dose: Not Given Documented by: Admin: 08/19/21 15:29 Dose: 10 ml Documented by: Admin: 08/19/21 05:53 Dose: Not Given Documented by: Admin: 08/18/21 22:47 Dose: 10 ml Documented by: TK Venlafaxine HCl (Venlafaxine 150 Mg Cap.Xl.24h) 150 mg PO QDAY DAVID Last Admin: 08/22/21 08:49 Dose: 150 mg Documented by: Admin: 08/21/21 08:34 Dose: 150 mg Documented by: Admin: 08/20/21 09:18 Dose: 150 mg Documented by: Admin: 08/19/21 16:20 Dose: 150 mg Documented by: Admin: 08/19/21 09:12 Dose: Not Given Documented by: IDA Shift Summary 08/22/21 00:57 Shift Summary by Ekta Mariscal Pt A/ox4. Up ad carter. Uses urinal. 30 units of Lantus administered HS. Q6H accu checks. Leroy drain to Perianal area covered w/ 4x4s and mesh underwear. x2 IVs to LFA SL. Scheduled Zosyn and Vanco. No complaints of pain. Initialized on 08/22/21 00:57 - END OF NOTE
[2021-08-22] MEDS ORDERED: AMOXICILLIN PO ONE (20:04)
[2021-08-22] MEDS ORDERED: CLAVULANATE PO ONE (20:04)
[2021-08-22] MEDS ORDERED: HYDROcodone/APAP (PP) 7.5/325MG TABLET (#4) PO ONE ×2 (20:07→20:43)
--- NOTE | 2021-08-27 14:10 | Operative Note ---
DATE OF OPERATION: 08/19/2021 PREOPERATIVE DIAGNOSIS: Perirectal abscess. POSTOPERATIVE DIAGNOSIS: Perirectal abscess. PROCEDURE: Incision and drainage of perirectal abscess. SURGEON: Leti Rubio M.D. FINDINGS: Left perirectal abscess extending anteriorly to the base of the scrotum in the midline. DESCRIPTION OF PROCEDURE: Under general anesthesia, the patient was placed in high lithotomy position. Perianal and perineal area were prepped and draped in a sterile field. The left perirectal abscess had a small amount of drainage. It was further aspirated and the fluid was sent for culture. The dome of the abscess was then excised. A grooved probe was placed and extended in the deep subcutaneous tissue superiorly to the base of the scrotum. At this level, a counterincision was made and the probe was used to extend the incision. Copious irrigation was carried out with saline. The abscess cavity was curetted and then irrigated once more. A 1/4-inch [place] was placed through the lower incision and brought out through the midline incision. The drain was secured to itself with 2-0 nylon. The patient tolerated the procedure well. Next, 4 x 4 gauze and surgical briefs were placed as a dressing. The patient was awakened, transferred to a bed, and taken to the postanesthetic care unit in satisfactory condition. LCS:narinder Job ID: [id number] Doc ID: [id number] Leti Rubio M.D.
== END 2021-08-22 11:20 | disposition home or self-care (01) | DRG 331 ==
LOC: MEDSUR 20:40
PROVIDERS: ADMIT Family Medicine Adult Medicine; ATTEND Family Medicine Adult Medicine